=== PATIENT | female | born 1950 | race Caucasian/White ===

== ENCOUNTER 2016-08-28 10:21 | Emergency (ER) | payer MEDICARE, MEDICAID ==
[~2016-08-28] VITALS: Ht 157.5 cm; Wt 79.4 kg
[~2016-08-28 10:21] MED LIST: AML5T PO; AMLO5TAB2; ASP325T PO; ATR20T PO; BACL10TA PO; CEPH500C PO; CLOP75TA PO; CYCL10TA9 PO; DEXL60CA5 PO; GLBR5T; METF500T4; MTF500T PO; NAPR-243 PO; NAPR-689; ORPH100T PO; PNT40TEC PO; PRD20T PO; PROAIR INHALER IH; QNPR20T PO; QUIN20TA27; SRTR100T PO; TRAM50TA2; TRM50T PO; ZOLOFT
--- OUTSIDE RECORDS SUMMARY | 2016-08-28 10:27 | XMS REPORT | Continuity of Care Document ---
Author Author [facility] Organization [facility] Address Unknown Phone Unavailable Care Team Providers Care Fuel Cell Technician Name Role Phone THOMAS CLAIRE DO PCP Insurance Providers Payer Name Policy Number Subscriber Name Relationship [employer]ps Medicare [id number] Pao Albright S 18 Self / Same As Patient Sherrie [employer] [id number] Pao Albright S 18 Self / Same As Patient Advance Directives Directive Response Recorded Date/Time Advance Directives No 08/27/14 4:21pm Organ Donor No 08/27/14 4:21pm Resuscitation Status Full Code 08/27/14 4:21pm Problems No known problems or medical conditions. Medications Medication Dose Route Sig Days/Qty Instructions Order Date Discontinued Date Status Pantoprazole Sodium 40 Mg PO DAILY 02/02/08 Active Atorvastatin Calcium 40 Mg PO DAILY 02/02/08 Active Glyburide 02/02/08 07/04/12 Discontinued Metformin HCl (Glucophage) 500 Mg PO TWICE A DAY 1 TAB BY MOUTH BEFORE BREAKFAST AND 1 TAB EVERY EVENING 02/02/08 Active Aspirin 325 Mg PO DAILY 02/02/08 11/08/13 Discontinued Amlodipine Besylate 5 Mg PO DAILY 02/02/08 08/27/14 Discontinued Quinapril HCl 20 Mg PO DAILY 02/02/08 Active Zoloft 02/02/08 07/12/12 Discontinued Dexlansoprazole 60 Mg PO 07/12/12 07/12/12 Discontinued Sertraline HCl 100 Mg PO DAILY 07/12/12 11/08/13 Discontinued Cephalexin Monohydrate (Keflex) 500 Mg PO THREE TIMES A DAY 07/12/12 11/08/13 Discontinued [Proair Inhaler] 1 Puff IH THREE TIMES A DAY PRN 07/12/12 Active Clopidogrel Bisulfate 1 Each PO DAILY 07/15/12 Active Naproxen 1 Each PO THREE TIMES A DAY PRN PAIN 20 Qty 11/08/13 Active Orphenadrine Citrate 100 Mg PO TWICE A DAY 10 Qty FOR MUSCLE SPASMS 11/0808/27/14 Discontinued Tramadol HCl 50 Mg PO Q4-6HR PRN PAIN 20 Qty 11/08/13 Active Amlodipine Besylate (Norvasc 5 Mg) 30 Qty 08/27/14 Active Quinapril Hcl 30 Qty 08/27/14 Active Naproxen 60 Qty 08/27/14 Active Tramadol Hcl 60 Qty 08/27/14 Active Metformin Hcl 60 Qty 08/27/14 Active Prednisone 40 Mg PO DAILY 10 Qty 08/27/14 Active Cyclobenzaprine HCl (Flexeril) 1 Each PO EVERY 8HRS PRN SPASMS 10 Qty 15 08/27/14 Discontinued Baclofen (Lioresal) 1 Each PO TID PRN PRN SPASMS 10 Qty 08/27/14 Active Social History Social History Problem Response Recorded Date/Time Alcohol Use Denies Use 08/27/2014 4:21pm Recreational Drug Use No 08/27/2014 4:21pm Recent Foreign Travel No 08/27/2014 4:19pm Smoking Status Current Everyday Smoker 08/27/2014 4:21pm Query Response Start Date Stop Date Smoking Status Current Everyday Smoker Hospital Discharge Instructions No hospital discharge instructions. Plan of Care No plan of care. Functional Status No functional status results. Allergies, Adverse Reactions, Alerts Allergen Type Severity Reaction Status Last Updated Penicillins ([id number]) Allergy Unknown Active 02/02/08 morphine Allergy Mild Active 11/08/13 Immunizations No immunization records. Vital Signs Acute Vital Signs Vital Response Date/Time Temperature (Fahrenheit) 97.4 degrees F (97.6 - 99.5) Temperature (Calculated Celsius) 36.05807 degrees C (36.4 - 37.5) Temperature Source Temporal Pulse Rate (adult) 82 bpm (60 - 90) Respiratory Rate 18 bpm (12 - 24) O2 Sat by Pulse Oximetry 95 % (88 - 100) Blood Pressure 149/83 mm Hg Pain Pain Intensity 10 Height (Feet) 5 feet Height (Calculated Centimeters) 152.955131 cm Weight (Pounds) 237 pounds Weight (Calculated Grams) 243621.393 gm Weight (Calculated Kilograms) 107.532364 kilograms Height 5 ft 0 in Weight 237 lb Body Mass Index 46.3 kg/m^2 Results No known relevant diagnostic tests, laboratory data and/or discharge summary. Procedures No known history of procedures. Encounters Encounter Location Date/Time Departed Emergency Room Via [facility] 08/27/14 4:11pm Recent Diagnosis
--- NOTE | 2016-08-28 11:09 | ED Fall/Injury ---
General Chief Complaint: Trauma-Non Activation Stated Complaint: FALL/HEAD INJURY Nursing Triage Note: PT ARRIVED PER EMS, PT FELL OUT OF BED AT [place] THIS AM, PT DENIES LOC, PT STATES ONLY HURTS WHERE BUMP ON HEAD IS, DENIES NEW NECK PAIN, STATES ALWAYS HAS NECK PAIN. Source: patient, EMS, group home records History of Present Illness Time seen by provider: 10:22 Initial Comments PT ARRIVES VIA EMS FROM [facility] PT STATES SHE WAS LAYING IN BED AND LEANED OVER AND WAS REACHING DOWN TO GET HER SHOES AND FELL OFF THE BED, AND HIT HER HEAD ON A TRASH CAN--OCCURRED JUST PRIOR TO ARRIVAL NO LOSS OF CONSCIOUSNESS NO DIZZINESS NO VISION CHANGES NO NAUSEA/VOMITING NO PARESTHESIAS OR MOTOR DEFICITS NO CHANGES IN CHRONIC NECK PAIN NO OTHER INJURIES PT STATES SHE HAD NOT HAD ANY OF HER MORNING MEDICATIONS UNTIL IMMEDIATELY PRIOR TO ARRIVAL Location Injury Occurred: [place] PCP: DR. CLAIRE Allergies and Home Medications Allergies Coded Allergies: morphine (Unverified Allergy, Mild, 11/08/13) "ACTS WEIRD" Penicillins (Unverified Allergy, Unknown, 02/02/08) Home Medications 1 PUFF IH TID PRN PRN (Reported) Amlodipine Besylate 5 Mg Tablet #30 (Reported) Atorvastatin 20 Mg Tablet 40 MG PO DAILY (Reported) Baclofen 10 Mg Tablet #10 1 EACH PO TID PRN PRN PRN SPASMS Prescribed by: CHLOE HAYS on 08/27/14 1756 Clopidogrel Bisulfate 75 Mg Tablet 1 EACH PO DAILY (Reported) Metformin Hcl 500 Mg Tablet 500 MG PO BID (Reported) 1 TAB BY MOUTH BEFORE BREAKFAST AND 1 TAB EVERY EVENING DO NOT START UNTIL 12 -13-12 Metformin Hcl 500 Mg Tablet #60 (Reported) Naproxen 500 Mg Tablet #20 1 EACH PO TID PRN PRN PAIN FOR PAIN Prescribed by: VEDA ZABALA on 11/08/13 1612 Naproxen 500 Mg Tablet #60 (Reported) Pantoprazole Sodium 40 Mg Tablet.dr 40 MG PO DAILY (Reported) Prednisone 20 Mg Tab #10 40 MG PO DAILY Prescribed by: CHLOE HAYS on 08/27/14 1724 Quinapril Hcl 20 Mg Tablet 20 MG PO DAILY (Reported) Quinapril Hcl 20 Mg Tablet #30 (Reported) Tramadol Hcl 50 Mg Tab #20 50 MG PO Q4-6HR PRN PRN PAIN FOR PAIN Prescribed by: VEDA ZABALA on 11/08/13 1612 Tramadol Hcl 50 Mg Tab #60 (Reported) Constitutional: no symptoms reported other (HEMATOMA TO LEFT FOREHEAD) Eyes: No Symptoms Reported Ears, Nose, Mouth, Throat: no symptoms reported Respiratory: no symptoms reported Cardiovascular: no symptoms reported Gastrointestinal: no symptoms reported Genitourinary: no symptoms reported Musculoskeletal: no symptoms reported Skin: no symptoms reported Psychiatric/Neurological: No Symptoms Reported Past Eazhooq-Kwrtle-Xxirwg Hx Patient Social History Alcohol Use: Past History (NONE X 10-15 YEARS, PER PT ON 08/28/16) Recreational Drug Use: No Smoking Status: Current Everyday Smoker (2 1/2 PPD, NOW 1/2 PPD) Type Used: Cigarettes Recent Foreign Travel: No Contact w/Someone Who Travel: No Recent Infectious Disease Expo: No Recent Hopitalizations: No (HAILEY-UNSURE WHAT FOR AND WHEN) Physical Abuse Screen: No Sexual Abuse: No Seasonal Allergies Seasonal Allergies: No Surgeries HX Surgeries: Yes (CATARACTS) Surgeries: Section, Eye Surgery, Gallbladder Respiratory Hx Respiratory Disorders: Yes Respiratory Disorders: COPD Cardiovascular Hx Cardiac Disorders: Yes Cardiac Disorders: Coronary Artery Disease, High Cholesterol, Hypertension Neurological Hx Neurological Disorders: Yes Neurological Disorders: Stroke Reproductive System Hx Reproductive Disorders: No Genitourinary Hx Genitourinary Disorders: Yes (INCONTINENT) Gastrointestinal Hx Gastrointestinal Disorders: Yes Gastrointestinal Disorders: Chronic Constipation Musculoskeletal Hx Musculoskeletal Disorders: Yes (CHRONIC NECK AND BACK PAIN ; UNSTEADY GAIT AND GENERALIZED WEAKNESS) Musculoskeletal Disorders: Arthritis, Chronic Back Pain Endocrine Hx Endocrine Disorders: Yes Endocrine Disorders: Diabetes, Non-Insulin dep Cancer Hx Cancer: No Psychosocial Hx Psychiatric Problems: Yes Behavioral Health Disorders: Depression Integumentary HX Skin/Integumentary Disorder: No Blood Transfusions Hx Blood Disorders: No Physical Exam Vital Signs Vital Sign - Last 12Hours 08/28/16 10:21 Temp 97.9 Pulse 68 Resp 18 B/P 198/79 Pulse Ox 99 Capillary Refill : Less Than 3 Seconds General Appearance: WD/WN no apparent distress HEENT: PERRL/EOMI TMs normal other (LARGE HEMATOMA TO LEFT FOREHEAD. POOR DENTITON WITH MULTIPLE MISSING TEETH) Neck: tender lateral tender midline other (PT STATES IS CHRONIC AND NO DIFFERENT THAN NORMAL) Cardiovascular: regular rate, rhythm no murmur Respiratory: normal breath sounds no respiratory distress no accessory muscle use Gastrointestinal: non tender soft Back: no CVA tenderness no vertebral tenderness Extremities: normal range of motion non-tender normal inspection no pedal edema no calf tenderness Neurologic/Psychiatric: consultant internship II-XII nml as tested no motor/sensory deficits alert normal mood/affect oriented x 3 Skin: normal color warm/dry [place] Coma Score Best Eye Response: (4) Open Spontaneously Best Verbal Response: (5) Oriented Best Motor Response: (6) Obeys Commands [place] Total: 15 Progress/Results/Core Measures Results/Orders My Orders Orders-VEDA ZABALA DO Ct Head/Cervical Spine Wo (08/28/16 10:31) Vital Signs/I&O Vital Sign - Last 12Hours 08/28/16 10:21 Temp 97.9 Pulse 68 Resp 18 B/P 198/79 Pulse Ox 99 Blood Pressure Mean: 118 Progress Note : Progress Note PT REFUSES TO HAVE BP TAKEN AGAIN Diagnostic Imaging Comments CT HEAD/CERVICAL SPINE--LEFT FRONTAL SCALP HEMATOMA, OTHERWISE NO ACUTE PROCESS , CHRONIC CHANGES--PER RADIOLOGIST REPORT @ 1113 Reviewed: Reviewed by Me Departure Impression Impression: Primary Impression: S/P FALL Additional Impressions: HEAD CONTUSION WITH HEMATOMA EXACERABATION OF CHRONIC NECK PAIN Disposition: 03 XFER SNF Condition: Stable Departure-Patient Inst. Referrals: THOMAS CLAIRE DO (PCP/Family) Primary Care Physician Patient Instructions: HEMATOMA, Minor Head Injury (DC), Preventing Falls in the Older Adult Add. Discharge Instructions: ICE TO AREA AT 20 MINUTE INTERVALS TYLENOL NEEDED FOR PAIN CONTINUE YOUR REGULAR MEDICATIONS PRESCRIBED FOLLOW UP WITH YOUR DR NEEDED All discharge instructions reviewed with patient and/or family. Voiced understanding. VEDA ZABALA DO Aug 28, 2016 11:09
--- NOTE | 2016-08-28 11:10 | Diagnostic Imaging Report ---
PROCEDURE: CT head and CT cervical spine without contrast. TECHNIQUE: Multiple contiguous axial images were obtained through the brain and cervical spine without the use of intravenous contrast. Sagittal and coronal reformations through the cervical spine were then performed. INDICATION: Fall. Head injury. COMPARISON: CT head without contrast 07/14/2012. Cervical spine radiographs 12/20/2013. FINDINGS: CT HEAD: Generalized cerebral and cerebellar parenchymal volume loss has progressed since the prior exam. Chronic infarct in the left ajay. 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 No intracranial hemorrhage, mass effect, hydrocephalus or extra-axial fluid collections. Intracranial vascular calcifications. Left frontal scalp hematoma. Osseous structures are intact. Mild mucosal thickening in the maxillary sinuses. CT CERVICAL SPINE: Minimal anterolisthesis of C4 on C5 and C5 on C6 is similar to the prior radiographs. Vertebral body heights are maintained. No fractures. Moderate degenerative endplate changes and facet arthropathy. These result in no high-grade neural impingement on this noncontrast exam. Arterial calcifications including the carotid bifurcations. IMPRESSION: 1. Left frontal scalp hematoma. Osseous structures are intact. 2. Interval progression of generalized parenchymal volume loss and leukoaraiosis. No acute intracranial CT findings. 3. No acute cervical spine CT findings. Dictated by: Dictated on workstation # [id number]
[2016-08-28 12:35] VITALS: BP 0/0
== END 2016-08-28 12:30 ==
LOC: EDUNIT# 10:21 → ER 10:23
DX: S00.83XA Contusion of other part of head, initial encounter (principal); M54.2 Cervicalgia; G89.29 Other chronic pain; I10 Essential (primary) hypertension; E11.9 Type 2 diabetes mellitus without complications; J44.9 Chronic obstructive pulmonary disease, unspecified; F17.210 Nicotine dependence, cigarettes, uncomplicated; Z79.02 Long term (current) use of antithrombotics/antiplatelets; Z79.84 Long term (current) use of oral hypoglycemic drugs; W06.XXXA Fall from bed, initial encounter; Y92.122 Bedroom in nursing home as the place of occurrence of the external cause; Y99.8 Other external cause status
CPT/HCPCS: 70450; 72125

== ENCOUNTER 2016-09-22 09:19 | Emergency (ER) | payer MEDICARE, MEDICAID ==
[~2016-09-22] VITALS: Ht 157.5 cm; Wt 79.7 kg
--- OUTSIDE RECORDS SUMMARY | 2016-09-22 09:24 | XMS REPORT | Continuity of Care Document ---
Author Author [facility] Organization [facility] Address Unknown Phone Unavailable Care Team Providers Care Chamber Worker Name Role Phone THOMAS CLAIRE DO PCP Insurance Providers Payer Name Policy Number Subscriber Name Relationship [employer]ps [employer] [id number] Pao Albright S 18 Self / Same As Patient Sherrie [employer] [id number] Pao Albright S 18 Self / Same [...] Type Severity Reaction Status Last Updated Penicillins ([id number]) Allergy Unknown Active 02/02/08 morphine Allergy Mild Active 11/08/13 Immunizations No immunization records. Vital Signs Acute Vital Signs Vital Response Date/Time Temperature (Fahrenheit) 97.4 degrees F (97.6 - 99.5) Temperature (Calculated Celsius) 36.15516 degrees C (36.4 - 37.5) Temperature Source Temporal Pulse Rate (adult) 82 bpm (60 - 90) Respiratory Rate 18 bpm (12 - 24) O2 Sat by Pulse Oximetry 95 % (88 - 100) Blood Pressure 149/83 mm Hg Pain Pain Intensity 10 Height (Feet) 5 feet Height (Calculated Centimeters) 152.361166 cm Weight (Pounds) 237 pounds Weight (Calculated Grams) 321369.393 gm Weight (Calculated Kilograms) 107.233023 kilograms Height 5 ft 0 in Weight 237 lb Body Mass Index 46.3 kg/m^2 Results No known relevant diagnostic tests, laboratory data and/or discharge summary. Procedures No known history of procedures. Encounters Encounter Location Date/Time Departed Emergency Room Via [facility] 08/27/14 4:11pm Recent Diagnosis
--- NOTE | 2016-09-22 09:35 | ED Upper Extremity ---
General Chief Complaint: Trauma-Non Activation Stated Complaint: FALL Source: patient, EMS Exam Limitations: no limitations History of Present Illness Time seen by provider: 09:27 Initial Comments Patient presents after having a fall approximately 5:30 this morning after she got up she said she was a little disoriented and fell from standing at the floor with her head and left arm on the elbow. She still having pain in her left arm and is splinting it against her side. She is left-handed. She has a goose egg on her left side of her parietal skull that is not very tender. She notes that her shoulder and elbow are 11 out of 10 pain but does not desire any pain medicine at this time. She states she has pain in her lower back on top of her chronic pain that is new since her fall this morning. She lives in residential and had help getting up and was examined by the nurse there appears no immediate concern for open/overt fracture/dislocation but her doctor asked that she be brought to the ER for x-ray. No loss of consciousness. Allergies and Home Medications Allergies Coded Allergies: morphine (Unverified Allergy, Mild, 11/08/13) "ACTS WEIRD" Penicillins (Unverified Allergy, Unknown, 02/02/08) Home Medications 1 PUFF IH TID PRN PRN (Reported) Amlodipine Besylate 5 Mg Tablet #30 (Reported) Atorvastatin 20 Mg Tablet 40 MG PO DAILY (Reported) Baclofen 10 Mg Tablet #10 1 EACH PO TID PRN PRN PRN SPASMS Prescribed by: CHLOE HAYS on 08/27/14 1756 Clopidogrel Bisulfate 75 Mg Tablet 1 EACH PO DAILY (Reported) Metformin Hcl 500 Mg Tablet 500 MG PO BID (Reported) 1 TAB BY MOUTH BEFORE BREAKFAST AND 1 TAB EVERY EVENING DO NOT START UNTIL 12 -13-12 Metformin Hcl 500 Mg Tablet #60 (Reported) Naproxen 500 Mg Tablet #20 1 EACH PO TID PRN PRN PAIN FOR PAIN Prescribed by: VEDA ZABALA on 11/08/13 1612 Naproxen 500 Mg Tablet #60 (Reported) Pantoprazole Sodium 40 Mg Tablet.dr 40 MG PO DAILY (Reported) Prednisone 20 Mg Tab #10 40 MG PO DAILY Prescribed by: CHLOE HAYS on 08/27/14 1724 Quinapril Hcl 20 Mg Tablet 20 MG PO DAILY (Reported) Quinapril Hcl 20 Mg Tablet #30 (Reported) Tramadol Hcl 50 Mg Tab #20 50 MG PO Q4-6HR PRN PRN PAIN FOR PAIN Prescribed by: VEDA ZABALA on 11/08/13 1612 Tramadol Hcl 50 Mg Tab #60 (Reported) Constitutional: No chills, No fever, No malaise EENTM: No ear pain, No eye pain Respiratory: No cough, No wheezing Cardiovascular: No chest pain, No edema, No syncope Gastrointestinal: No abdominal pain, constipationNo diarrhea Genitourinary: No dysuria, No frequency Musculoskeletal: back painNo joint pain, No joint swelling Skin: No pruritus, No rash Psychiatric/Neurological: Denies Numbness, Denies Paresthesia Past Bvldpus-Axwyvr-Ciskud Hx Patient Social History Alcohol Use: Denies Use Recreational Drug Use: No Smoking Status: Current Everyday Smoker Type Used: Cigarettes Recent Hopitalizations: No (HAILEY-UNSURE WHAT FOR AND WHEN) Seasonal Allergies Seasonal Allergies: No Surgeries HX Surgeries: Yes (CATARACTS) Surgeries: Section, Eye Surgery, Gallbladder Respiratory Hx Respiratory Disorders: Yes Respiratory Disorders: COPD Cardiovascular Hx Cardiac Disorders: Yes Cardiac Disorders: Coronary Artery Disease, High Cholesterol, Hypertension Neurological Hx Neurological Disorders: Yes Neurological Disorders: Stroke Reproductive System Hx Reproductive Disorders: No Genitourinary Hx Genitourinary Disorders: Yes (INCONTINENT) Gastrointestinal Hx Gastrointestinal Disorders: Yes Gastrointestinal Disorders: Chronic Constipation Musculoskeletal Hx Musculoskeletal Disorders: Yes (CHRONIC NECK AND BACK PAIN ; UNSTEADY GAIT AND GENERALIZED WEAKNESS) Musculoskeletal Disorders: Arthritis, Chronic Back Pain Endocrine Hx Endocrine Disorders: Yes Endocrine Disorders: Diabetes, Non-Insulin dep Cancer Hx Cancer: No Psychosocial Hx Psychiatric Problems: Yes Behavioral Health Disorders: Depression Integumentary HX Skin/Integumentary Disorder: No Blood Transfusions Hx Blood Disorders: No Physical Exam Vital Signs Vital Sign - Last 12Hours 09/22/16 09:31 Temp 98.4 Pulse 69 Resp 18 B/P 195/92 Pulse Ox 97 O2 Delivery Room Air Capillary Refill : General Appearance: WD/WN no apparent distress HEENT: PERRL/EOMI normal ENT inspection TMs normal pharynx normal other ( hematoma left parietal.) Neck: non-tender full range of motion supple normal inspection Cardiovascular: normal peripheral pulses regular rate, rhythm no edema Respiratory: chest non-tender lungs clear normal breath sounds Gastrointestinal: normal bowel sounds non tender soft Back: normal inspection no CVA tenderness vertebral tenderness (lateral to the lumbar 1 through 3 region) Shoulder: normal inspectionNo asymmetry, No deformity, pain (tender to palpation superior to the glenohumeral joint) Elbow/Forearm: normal inspection, non-tender (over lateral or medial epicondyles but there is some tenderness along the distal third of the humerus.) Wrist: Yes normal inspection, Yes non-tender, Yes no evidence of injury Hand: normal inspection, non-tender Neurologic/Tendon: normal sensation normal motor functions normal tendon functions responds to pain Neurologic/Psychiatric: bulk filler II-XII nml as tested alert normal mood/affect oriented x 3 Skin: normal color warm/dry Lymphatic: no adenopathy Progress/Results/Core Measures Results/Orders Lab Results Laboratory Tests Test 09/22/16 10:20 Range/Units Urine Bacteria TRACE /HPF Urine Bilirubin NEGATIVE NEGATIVE Urine Casts NONE /LPF Urine Clarity CLEAR Urine Color YELLOW Urine Crystals NONE /LPF Urine Culture Indicated NO Urine Glucose (UA) NEGATIVE NEGATIVE Urine Ketones NEGATIVE NEGATIVE Urine Leukocyte Esterase NEGATIVE NEGATIVE Urine Mucus NEGATIVE /LPF Urine Nitrite NEGATIVE NEGATIVE Urine Protein 2+ H NEGATIVE Urine RBC NONE /HPF Urine RBC (Auto) NEGATIVE NEGATIVE Urine Renal Epithelial Cells NONE /HPF Urine Specific [place] 1.010 L 1.016-1.022 Urine Squamous Epithelial Cells 0-2 /HPF Urine Urobilinogen NORMAL NORMAL MG/DL Urine WBC NONE /HPF Urine pH 6.5 5-9 My Orders Orders-NORIS MARTIN Ua Culture If Indicated (09/22/16 09:35) Shoulder, Left, 3 Views (09/22/16 09:35) Elbow, Left, 3 Views (09/22/16 09:35) Lumbar Spine - 2-3 Views (09/22/16 09:35) Acetaminophen Tablet (Tylenol Tablet) (09/22/16 12:39) Vital Signs/I&O Vital Sign - Last 12Hours 09/22/16 09/22/16 09:31 12:48 Temp 98.4 98.4 Pulse 69 74 Resp 18 16 B/P 195/92 Pulse Ox 97 97 O2 Delivery Room Air Progress Note : Time: 09:50 Progress Note We'll obtain a urinalysis looking for signs of a urinary tract infection given no other overt reason for her fall other understanding early in the morning. X- ray shoulder and left elbow as well as lumbar spine 3 views. Tenderness on the spine is paraspinous so may be more amenable to muscle relaxers if no osseous fracture seen. Patient declining any pain meds at this time. States she does not believe in pain meds. Declines Muscle relaxant. UA Neg Diagnostic Imaging Diagonstic Imaging: Xray Plain Films/CT/US/NM/MRI: elbow, other (shoulder and L-spine) Comments No acute osseous fractures noted. No tumor, mass lesion or signs of infection. Ljpf-gw-jiazdlyb degenerative joint disease noted. NAME: [facility]ES [facility] REC#: [id number] PT STATUS: REG ER : 1950 PHYSICIAN: NORIS MARTIN MD ADMIT DATE: 09/22/16/ER Signed Date of Exam: 09/22/16 ELBOW, LEFT, 3 VIEWS INDICATION: Fall. FINDINGS: 3 views show no fractures or dislocations of the elbow. Mild degenerative changes are present. No joint effusion. IMPRESSION: No acute abnormalities. Dictated by: Dictated on workstation # [id number] Dict: 09/22/16 1005 Trans: 09/22/16 1009 [facility] [id number] Interpreted by: JOSE HELMS MD Electronically signed by:JOSE HELMS MD 09/22/16 1012 NAME: ALCIDES [facility] REC#: [id number] PT STATUS: REG ER : 1950 PHYSICIAN: NORIS MARTIN MD ADMIT DATE: 09/22/16/ER Signed Date of Exam: 09/22/16 LUMBAR SPINE - 2-3 VIEWS INDICATION: Fall. Low back pain. FINDINGS: 3 views show good alignment of the vertebral bodies. Body height is well maintained with no compression fracture. Facets are in good alignment. No evidence of pars defect. Mild degenerative disc disease noted throughout. Aorta is calcified without evidence of aneurysm. IMPRESSION: Degenerative disc and facet disease with no acute abnormalities demonstrated. Dictated by: Dictated on workstation # [id number] Dict: 09/22/16 1005 Trans: 09/22/16 1009 [facility] [id number] Interpreted by: JOSE HELMS MD Electronically signed by:JOSE HELMS MD 09/22/16 1012 [facility] [place] [place] NAME: ALCIDES [facility] REC#: [id number] PT STATUS: REG ER : 1950 PHYSICIAN: NORIS MARTIN MD ADMIT DATE: 09/22/16/ER Draft Date of Exam:09/22/16 SHOULDER, LEFT, 3 VIEWS INDICATION: Shoulder pain. Fall. FINDINGS: 3 views show normal articulation of the humeral head with the glenoid. There is calcification noted on the AP view which likely represents some osteophyte formation along the posterior glenoid. No definite fractures are seen. AC joint is in good alignment. IMPRESSION: Small calcification noted overlying the inferior aspect of the humeral head on the AP view only is felt most likely to represent an osteophyte off of the glenoid. Clinical correlation for focal pain. If additional imaging is indicated CT scan of the shoulder would help differentiate. Dictated on workstation # [id number] Dict: 09/22/16 1006 Trans: 09/22/16 1010 [facility] [id number] Interpreted by: JOSE HELMS MD Electronically signed by: Reviewed: Reviewed by Me Departure Impression Impression: Primary Impression: Fall from standing Qualified Code: W19.XXXA - Unspecified fall, initial encounter Disposition: 01 HOME, SELF-CARE Condition: Stable Departure-Patient Inst. Referrals: THOMAS CLAIRE DO (PCP/Family) Primary Care Physician Patient Instructions: Preventing Falls in the Older Adult Add. Discharge Instructions: You have had a fall. The x-rays did not show any signs of an acute fracture. You did have some mild degenerative changes that are consistent with osteoarthritis or chronic arthritis. Your urine was checked for infection and found to be clean. Use the call lights and staff to help you as needed. All discharge instructions reviewed with patient and/or family. Voiced understanding. Copy Copies To 1: THOMAS CLAIRE TITUS J Sep 22, 2016 09:34
--- NOTE | 2016-09-22 10:06 | Diagnostic Imaging Report ---
INDICATION: Fall. FINDINGS: 3 views show no fractures or dislocations of the elbow. Mild degenerative changes are present. No joint effusion. IMPRESSION: No acute abnormalities. Dictated by: Dictated on workstation # [id number]
--- NOTE | 2016-09-22 10:09 | Diagnostic Imaging Report ---
INDICATION: Fall. Low back pain. FINDINGS: 3 views show good alignment of the vertebral bodies. Body height is well maintained with no compression fracture. Facets are in good alignment. No evidence of pars defect. Mild degenerative disc disease noted throughout. Aorta is calcified without evidence of aneurysm. IMPRESSION: Degenerative disc and facet disease with no acute abnormalities demonstrated. Dictated by: Dictated on workstation # [id number]
--- NOTE | 2016-09-22 10:10 | Diagnostic Imaging Report ---
INDICATION: Shoulder pain. Fall. FINDINGS: 3 views show normal articulation of the humeral head with the glenoid. There is calcification noted on the AP view which likely represents some osteophyte formation along the posterior glenoid. No definite fractures are seen. AC joint is in good alignment. IMPRESSION: Small calcification noted overlying the inferior aspect of the humeral head on the AP view only is felt most likely to represent an osteophyte off of the glenoid. Clinical correlation for focal pain. If additional imaging is indicated CT scan of the shoulder would help differentiate. Dictated by: Dictated on workstation # [id number]
[2016-09-22 11:01] LABS: BILIRUBIN,URINE NEGATIVE (NEGATIVE); KETONES,URINE NEGATIVE (NEGATIVE); LEUKOCYTE ESTERASE ,URINE NEGATIVE (NEGATIVE); NITRITE,URINE NEGATIVE (NEGATIVE); PH,URINE 6.5 (5-9); PROTEIN,URINE 2+ (NEGATIVE); UROBILINOGEN,URINE NORMAL (NORMAL)
[2016-09-22 11:05] LABS: SQUAMOUS EPITHELIAL CELL,UR 0-2 /HPF
[2016-09-22] MEDS ORDERED: ACETAMINOPHEN 500 MG TAB (TYLENOL) PO STA (12:39)
[2016-09-22 12:48] VITALS: BP 155/84
== END 2016-09-22 12:48 | disposition home or self-care (01) ==
LOC: EDUNIT# 09:19 → ER 09:20
DX: S00.03XA Contusion of scalp, initial encounter (principal); M54.5 Low back pain; M51.36 Other intervertebral disc degeneration, lumbar region; J44.9 Chronic obstructive pulmonary disease, unspecified; F17.210 Nicotine dependence, cigarettes, uncomplicated; Z79.899 Other long term (current) drug therapy; Z79.02 Long term (current) use of antithrombotics/antiplatelets; Z79.84 Long term (current) use of oral hypoglycemic drugs; W01.0XXA Fall on same level from slipping, tripping and stumbling without subsequent striking against object, initial encounter; Y92.122 Bedroom in nursing home as the place of occurrence of the external cause; Y99.8 Other external cause status
CPT/HCPCS: 72100; 73030; 73080; 81000; 99283

== ENCOUNTER → 2016-12-08 | Outpatient (CLI) | payer MEDICARE, MEDICAID ==
[2016-12-08 23:50] LABS: BILIRUBIN,URINE NEGATIVE (NEGATIVE); KETONES,URINE NEGATIVE (NEGATIVE); LEUKOCYTE ESTERASE ,URINE NEGATIVE (NEGATIVE); NITRITE,URINE NEGATIVE (NEGATIVE); PH,URINE 5 (5-9); PROTEIN,URINE 3+ (NEGATIVE); UROBILINOGEN,URINE NORMAL (NORMAL)
[2016-12-09 00:02] LABS: WBC,URINE RARE /HPF
== END ==
LOC: LABNPT 23:44
PROVIDERS: ATTEND Family Medicine
DX: R39.9 Unspecified symptoms and signs involving the genitourinary system (principal)
CPT/HCPCS: 81000; 87088

== ENCOUNTER → 2016-12-21 | Outpatient (CLI) | payer MEDICARE, MEDICAID | LOC: LABNPT 15:07 | PROVIDERS: ATTEND Family Medicine | DX: K59.00 Constipation, unspecified (principal); E78.4 Other hyperlipidemia; E56.9 Vitamin deficiency, unspecified | CPT/HCPCS: 82274 ==

== ENCOUNTER → 2017-01-08 | Outpatient (CLI) | payer MEDICARE, MEDICAID ==
[~2017-01-08] MED LIST changes: +ACET-2422 PO; +ALBU18HF2 IH; +AMLO5TAB2 PO; +ATOR40TA70 PO; +CLON0.5T3 PO; +CLOP75TA28 PO; +DOCU100C37 PO; +ESCI10TA55 PO; +FAMO20TA5 PO; +GUAI100L13 PO; +MAGN400O7 PO; +MAGN400T6 PO; +MENT56CR TP; +METF500T4 PO; +METR500T21 PO; +ONDA4TAB10 PO; +POTA10TA6 PO; +QUIN20TA27 PO; +TRAM50TA2 PO
== END ==
LOC: LAB 20:15
PROVIDERS: ATTEND Family Medicine
DX: R19.7 Diarrhea, unspecified (principal); R19.5 Other fecal abnormalities
CPT/HCPCS: 82274; 87045; 87046; 87493

== ENCOUNTER 2017-02-06 13:19 | Inpatient (IN) | payer MEDICARE, MEDICAID ==
[~2017-02-06] VITALS: Ht 154.9 cm; Wt 81.6 kg
--- NOTE | 2017-02-06 15:11 | Diagnostic Imaging Report ---
EXAMINATION: Portable upright radiograph of the chest. INDICATION: Fall. FINDINGS: The lungs are clear. The heart size is at the upper limits of normal. No effusion or pneumothorax. The mediastinum and aries appear unremarkable. IMPRESSION: Prominent cardiac size. No focal infiltrate. Dictated by: Dictated on workstation # [id number]
--- NOTE | 2017-02-06 15:16 | Diagnostic Imaging Report ---
PROCEDURE: CT head and CT cervical spine without contrast. TECHNIQUE: Multiple contiguous axial images were obtained through the brain and cervical spine without the use of intravenous contrast. Sagittal and coronal reformations through the cervical spine were then performed. INDICATION: Fall. Bruising. FINDINGS: CT head: There is no intracranial hemorrhage, edema, or mass effect. The brain parenchyma demonstrates prominent periventricular and deep white matter hypodensities compatible with chronic microvascular ischemic changes. There is a 9 mm hypodense lesion within the brainstem suggestive of an old lacunar infarct. Small other lacunar infarcts in the right basal ganglia is also seen. No hydrocephalus. The calvarium, the visualized portions of the paranasal sinuses and orbits appear grossly unremarkable. CT cervical spine: There is a straightening of the cervical spine curvature. The alignment of the posterior spinal line is satisfactory. There is no compression fracture. There is mild disc height loss at C4-C5 and C5-C6 levels. The alignment at the facet joints is satisfactory. There is a fusion of the right facet joint at the C3-C4 level. No widening of the predental space. Satisfactory alignment of the atlantooccipital joints and the lateral masses of C1 and C2 is seen. Prominent anterior osteophytes at the mid and lower cervical spine levels is noted. There is a severe foraminal stenosis on the right side at the C3-C4 level. No fracture seen. IMPRESSION: CT head: Findings compatible with chronic ischemic changes. No intracranial hemorrhage. CT cervical spine: Degenerative changes. No fracture seen. Dictated by: Dictated on workstation # [id number]
--- NOTE | 2017-02-06 15:25 | ED Fall/Injury ---
General Chief Complaint: Trauma-Non Activation Stated Complaint: FALL/LEFT SHOULDER PAIN Nursing Triage Note: TO ED PER EMS YAZMIN MARGARET REMY ROSETTA WHO REPORT SHE WAS BENDING OVER IN HER W/C TO PICK SOMETHING UP AND FELL OUT NO LOC. ABRASION WITH HENMATOMA TO R SIDE OF FOREHEAD AND PAIN IN L SHOULDER. Source: patient, EMS Exam Limitations: no limitations History of Present Illness Time seen by provider: 14:00 Initial Comments This 66-year-old woman presents to the emergency room from the long-term after falling when she was bending over in her wheelchair to pick something up. There was no loss of consciousness. She has an abrasion on her right forehead. On my assessment she denies any significant pain. She has increasing somnolence. She is presently on Plavix. Patient did not complain of any shoulder pain on my interview. Fingerstick blood sugar was 335. Occurred: just prior to arrival Severity: mild Injuries/Pain Location: head Loss of Consciousness: no loss of consciousness Allergies and Home Medications Allergies Coded Allergies: morphine (Unverified Allergy, Mild, 11/08/13) "ACTS WEIRD" Penicillins (Unverified Allergy, Unknown, 02/02/08) Home Medications Acetaminophen 650 Mg Tablet.er, 650 MG PO Q4H PRN for PAIN-MILD, (Reported) NOT TO EXCEED 4 GRAMS PER DAY Albuterol Sulfate 18 Gm Hfa.aer.ad, 2 PUFF IH Q8H PRN for SHORTNESS OF BREATH, ( Reported) Amlodipine Besylate 5 Mg Tablet, 5 MG PO DAILY, (Reported) Atorvastatin Calcium 40 Mg Tablet, 40 MG PO HS, (Reported) Clonazepam 0.5 Mg Tablet, 0.5 MG PO Q12H PRN for ANXIETY, (Reported) Clopidogrel Bisulfate 75 Mg Tablet, 75 MG PO DAILY, (Reported) Docusate Sodium 100 Mg Capsule, 100 MG PO Q12H PRN for CONSTIPATION-1ST LINE, ( Reported) Escitalopram Oxalate 10 Mg Tablet, 10 MG PO DAILY, (Reported) Famotidine 20 Mg Tablet, 20 MG PO BID, (Reported) Guaifenesin 100 Mg/5 Ml Liquid, 10 ML PO Q4H PRN for COUGH, (Reported) Magnesium Hydroxide 400 Mg/5 Ml Oral.susp, 30 ML PO Q12H PRN for CONSTIPATION- 7TH LINE, (Reported) Magnesium Oxide 400 Mg Tablet, 400 MG PO BIDPC, #30 Prescribed by: ELPIDIO PEOPLES on 12/29/16 1326 Menthol/Camphor 56 Gm Cream..g., TP Q6H PRN for JOINT PAIN, (Reported) Metformin HCl 500 Mg Tablet, 500 MG PO BID, (Reported) Metronidazole 500 Mg Tablet, 500 MG PO TID for 12 Days, #36 Prescribed by: ELPIDIO PEOPLES on 12/29/16 1326 Ondansetron HCl 4 Mg Tablet, 4 MG PO Q6H PRN for NAUSEA/VOMITING-1ST LINE, ( Reported) Potassium Chloride 10 Meq Tablet.er, 10 MEQ PO BID WITH MEALS, #30 Prescribed by: ELPIDIO PEOPLES on 12/29/16 1326 Quinapril HCl 20 Mg Tablet, 20 MG PO DAILY, (Reported) Tramadol HCl 50 Mg Tablet, 50 MG PO Q12H PRN for PAIN-MODERATE, (Reported) Constitutional: see HPI Eyes: No Symptoms Reported Ears, Nose, Mouth, Throat: no symptoms reported Respiratory: no symptoms reported Cardiovascular: no symptoms reported Gastrointestinal: no symptoms reported Genitourinary: no symptoms reported Musculoskeletal: see HPI Skin: see HPI Psychiatric/Neurological: See HPI Past Yqircoe-Ityayl-Dgjeuh Hx Patient Social History Alcohol Use: Denies Use Recreational Drug Use: No Smoking Status: Current Everyday Smoker Type Used: Cigarettes 2nd Hand Smoke Exposure: No Recent Foreign Travel: No Contact w/Someone Who Travel: No Recent Infectious Disease Expo: No Recent Hopitalizations: No Immunizations Up To Date Tetanus Booster (TDap): Unknown Seasonal Allergies Seasonal Allergies: No Surgeries HX Surgeries: Yes (CATARACTS) Surgeries: Section, Eye Surgery, Gallbladder Respiratory Hx Respiratory Disorders: Yes Respiratory Disorders: COPD Cardiovascular Hx Cardiac Disorders: Yes Cardiac Disorders: Coronary Artery Disease, High Cholesterol, Hypertension Neurological Hx Neurological Disorders: Yes Neurological Disorders: Stroke Reproductive System Hx Reproductive Disorders: No Genitourinary Hx Genitourinary Disorders: Yes (INCONTINENT) Gastrointestinal Hx Gastrointestinal Disorders: Yes Gastrointestinal Disorders: Chronic Constipation Musculoskeletal Hx Musculoskeletal Disorders: Yes (CHRONIC NECK AND BACK PAIN ; UNSTEADY GAIT AND GENERALIZED WEAKNESS) Musculoskeletal Disorders: Arthritis, Chronic Back Pain Endocrine Hx Endocrine Disorders: Yes Endocrine Disorders: Diabetes, Non-Insulin dep Cancer Hx Cancer: No Psychosocial Hx Psychiatric Problems: Yes Behavioral Health Disorders: Depression Integumentary HX Skin/Integumentary Disorder: No Blood Transfusions Hx Blood Disorders: No Adverse Reaction to a Blood Tr: No Family Medical History Significant Family History: No Pertinent Family Hx Physical Exam Vital Signs Vital Sign - Last 12Hours 02/06/17 13:19 Temp 97.6 Pulse 104 Resp 18 B/P (MAP) 119/83 Pulse Ox 98 O2 Delivery Room Air Capillary Refill : Less Than 3 Seconds General Appearance: WD/WN, no apparent distress, other (hypersomnolent) HEENT: PERRL/EOMI, TMs normal, pharynx normal, other (contusion/ecchymosis on the right forehead) Neck: non-tender, supple, normal inspection Cardiovascular: regular rate, rhythm, no edema, no murmur Respiratory: lungs clear, normal breath sounds, no respiratory distress, no accessory muscle use Gastrointestinal: normal bowel sounds, non tender, soft Extremities: non-tender, normal inspection, no pedal edema Neurologic/Psychiatric: mussel farmer II-XII nml as tested, no motor/sensory deficits, oriented x 3, other (patient is very somnolent but arousable. She is actually alert and oriented 3 when pressed for answers.) [place] Coma Score Best Eye Response: (3) Open to Voice Best Verbal Response: (5) Oriented Best Motor Response: (6) Obeys Commands [place] Total: 14 Progress/Results/Core Measures Results/Orders Lab Results Laboratory Tests Test 02/06/17 14:32 02/06/17 15:45 Range/Units Glucometer 335 H 70-110 MG/DL White Blood Count 13.0 H 4.3-11.0 10^3/uL Red Blood Count 3.77 L 4.35-5.85 10^6/uL Hemoglobin 10.1 L 11.5-16.0 G/DL Hematocrit 31 L 35-52 % Mean Corpuscular Volume 81 80-99 FL Mean Corpuscular Hemoglobin 27 25-34 PG Mean Corpuscular Hemoglobin Concent 33 32-36 G/DL Red Cell Distribution Width 18.4 H 10.0-14.5 % Platelet Count 407 H 130-400 10^3/uL Mean Platelet Volume 11.1 H 7.4-10.4 FL Neutrophils (%) (Auto) 81 H 42-75 % Lymphocytes (%) (Auto) 13 12-44 % Monocytes (%) (Auto) 6 0-12 % Eosinophils (%) (Auto) 1 0-10 % Basophils (%) (Auto) 0 0-10 % Neutrophils # (Auto) 10.5 H 1.8-7.8 X 10^3 Lymphocytes # (Auto) 1.7 1.0-4.0 X 10^3 Monocytes # (Auto) 0.8 0.0-1.0 X 10^3 Eosinophils # (Auto) 0.1 0.0-0.3 10^3/uL Basophils # (Auto) 0.0 0.0-0.1 10^3/uL Prothrombin Time 17.1 H 12.2-14.7 SEC INR Comment 1.4 0.8-1.4 Activated Partial Thromboplast Time 26 24-35 SEC Sodium Level 135 135-145 MMOL/L Potassium Level 4.1 3.6-5.0 MMOL/L Chloride Level 110 H 98-107 MMOL/L Carbon Dioxide Level 18 L 21-32 MMOL/L Anion Gap 7 5-14 MMOL/L Blood Urea Nitrogen 28 H 7-18 MG/DL Creatinine 2.37 H 0.60-1.30 MG/DL Estimat Glomerular Filtration Rate 20 BUN/Creatinine Ratio 12 Glucose Level 317 H 70-105 MG/DL Calcium Level 8.3 L 8.5-10.1 MG/DL Magnesium Level 2.0 1.8-2.4 MG/DL Total Bilirubin 0.2 0.1-1.0 MG/DL Aspartate Amino Transf (AST/SGOT) 16 5-34 U/L Alanine Aminotransferase (ALT/SGPT) 8 0-55 U/L Alkaline Phosphatase 58 40-136 U/L Total Protein 6.3 L 6.4-8.2 GM/DL Albumin 3.0 L 3.2-4.5 GM/DL Serum Alcohol < 10 <10 MG/DL My Orders Orders - DOMINIC NEWTON MD Alcohol (02/06/17 14:27) Cbc With Automated Diff (02/06/17 14:27) Comprehensive Metabolic Panel (02/06/17 14:27) Drug Screen Stat (Urine) (02/06/17 14:27) Magnesium (02/06/17 14:27) Protime With Inr (02/06/17 14:27) Partial Thromboplastin Time (02/06/17 14:27) Ua Culture If Indicated (02/06/17 14:27) Saline Lock/Iv-Start (02/06/17 14:27) Monitor-Rhythm Ecg Trace Only (02/06/17 14:27) Chest 1 View, Ap/Pa Only (02/06/17 14:27) Ct Head/Cervical Spine Wo (02/06/17 14:27) Saline Lock/Iv-Start (02/06/17 14:27) Accucheck Stat ONCE (02/06/17 14:27) Ns Iv 1000 Ml (Sodium Chloride 0.9%) (02/06/17 16:36) Vital Signs/I&O Vital Sign - Last 12Hours 02/06/17 13:19 Temp 97.6 Pulse 104 Resp 18 B/P (MAP) 119/83 Pulse Ox 98 O2 Delivery Room Air Blood Pressure Mean: 95 Point of Care Testing Finger Stick Blood Glucose: 335 Progress Note : Progress Note CT of the head and C-spine was obtained along with lab work. No acute injuries were identified. Patient was somnolent around the time of physician assessment but gradually improved. She was found to be in acute renal failure. A liter of IV fluids was administered by EMS. A second liter was administered in the ER. Was reviewed with Dr. Claire. He states patient has struggled with renal function in the outpatient setting. He agrees with admission for IV hydration. He reports patient does not keep up well with oral hydration and has actually received IV hydration in the outpatient setting recently. Diagnostic Imaging Diagonstic Imaging: CT Plain Films/CT/US/NM/MRI: c-spine, head Comments CT head and C-spine viewed by me and report reviewed. See report below: NAME: ALCIDES ALBRIGHT [facility] REC#: [id number] PT STATUS: REG ER : 1950 PHYSICIAN: DOMINIC NEWTON MD ADMIT DATE: 02/06/17/ER Draft Date of Exam:02/06/17 CT HEAD/CERVICAL SPINE WO PROCEDURE: CT head and CT cervical spine without contrast. TECHNIQUE: Multiple contiguous axial images were obtained through the brain and cervical spine without the use of intravenous contrast. Sagittal and coronal reformations through the cervical spine were then performed. INDICATION: Fall. Bruising. FINDINGS: CT head: There is no intracranial hemorrhage, edema, or mass effect. The brain parenchyma demonstrates prominent periventricular and deep white matter hypodensities compatible with chronic microvascular ischemic changes. There is a 9 mm hypodense lesion within the brainstem suggestive of an old lacunar infarct. Small other lacunar infarcts in the right basal ganglia is also seen. No hydrocephalus. The calvarium, the visualized portions of the paranasal sinuses and orbits appear grossly unremarkable. CT cervical spine: There is a straightening of the cervical spine curvature. The alignment of the posterior spinal line is satisfactory. There is no compression fracture. There is mild disc height loss at C4-C5 and C5-C6 levels. The alignment at the facet joints is satisfactory. There is a fusion of the right facet joint at the C3-C4 level. No widening of the predental space. Satisfactory alignment of the atlantooccipital joints and the lateral masses of C1 and C2 is seen. Prominent anterior osteophytes at the mid and lower cervical spine levels is noted. There is a severe foraminal stenosis on the right side at the C3-C4 level. No fracture seen. IMPRESSION: CT head: Findings compatible with chronic ischemic changes. No intracranial hemorrhage. CT cervical spine: Degenerative changes. No fracture seen. Dictated on workstation # [id number] Dict: 02/06/17 1504 Trans: 02/06/17 1516 [facility] [id number] Interpreted by: CHRISTIAN SPICER MD Diagonstic Imaging: Xray Plain Films/CT/US/NM/MRI: chest Comments Chest x-ray viewed by me and report reviewed. See report below: NAME: ALCIDES ALBRIGHT [facility] REC#: [id number] PT STATUS: REG ER : 1950 PHYSICIAN: DOMINIC NEWTON MD ADMIT DATE: 02/06/17/ER Signed Date of Exam:02/06/17 CHEST 1 VIEW, AP/PA ONLY EXAMINATION: Portable upright radiograph of the chest. INDICATION: Fall. FINDINGS: The lungs are clear. The heart size is at the upper limits of normal. No effusion or pneumothorax. The mediastinum and aries appear unremarkable. IMPRESSION: Prominent cardiac size. No focal infiltrate. Dictated by: Dictated on workstation # [id number] Dict: 02/06/17 1459 Trans: 02/06/17 1511 [facility] [id number] Interpreted by: CHRISTIAN SPICER MD Electronically signed by: CHRISTIAN SPICER MD 02/06/17 1511 Departure Communication Time/Spoke to Admitting Phy: 16:[address] Claire Impression Impression: Primary Impression: Acute renal failure Qualified Codes: N17.9 - Acute kidney failure, unspecified Additional Impressions: Fall on same level Qualified Codes: W18.30XA - Fall on same level, unspecified, initial encounter Altered mental status Qualified Codes: R41.82 - Altered mental status, unspecified Disposition: ADMITTED INPATIENT Condition: Improved Decision to Admit Reason: Admit from ER (General) Decision to Admit/Date: Feb 06, 2017 Time/Decision to Admit Time: 16:50 Departure-Patient Inst. Referrals: THOMAS CLAIRE DO (PCP/Family) Primary Care Physician DOMINIC NEWTON MD Feb 06, 2017 15:25
[2017-02-06 15:53] LABS: BASOPHILS % (AUTO) 0 % (0-10); EOSINOPHILS # (AUTO) 0.1 10^3/uL (0.0-0.3); EOSINOPHILS % (AUTO) 1 % (0-10); LYMPHOCYTES # (AUTO) 1.7 X 10^3 (1.0-4.0); LYMPHOCYTES % (AUTO) 13 % (12-44); MEAN CORPUSCULAR HEMOGLOBIN 27 PG (25-34); MEAN CORPUSCULAR HGB CONC 33 G/DL (32-36); MEAN CORPUSCULAR VOLUME 81 FL (80-99); MEAN PLATELET VOLUME 11.1 FL (7.4-10.4); MONOCYTES # (AUTO) 0.8 X 10^3 (0.0-1.0); MONOCYTES % (AUTO) 6 % (0-12); NEUTROPHILS # (AUTO) 10.5 X 10^3 (1.8-7.8); NEUTROPHILS % (AUTO) 81 % (42-75); PLATELET COUNT 407 10^3/uL (130-400); RED BLOOD COUNT 3.77 10^6/uL (4.35-5.85); RED CELL DISTRIBUTION WIDTH 18.4 % (10.0-14.5)
[2017-02-06 16:04] LABS: INR 1.4 (0.8-1.4); PROTHROMBIN TIME PATIENT 17.1 SEC (12.2-14.7)
[2017-02-06 16:20] LABS: ALANINE AMINOTRANSFERASE 8 U/L (0-55); ALCOHOL < 10 MG/DL (<10); ANION GAP 7 MMOL/L (5-14); ASPARTATE AMINO TRANSFERASE 16 U/L (5-34); BILIRUBIN,TOTAL 0.2 MG/DL (0.1-1.0); BLOOD UREA NITROGEN 28 MG/DL (7-18); BUN/CREATININE RATIO 12; CALCIUM 8.3 MG/DL (8.5-10.1); CARBON DIOXIDE 18 MMOL/L (21-32); CHLORIDE 110 MMOL/L (98-107); CREATININE SERUM 2.37 MG/DL (0.60-1.30); GFR ESTIMATED 20; GLUCOSE 317 MG/DL (70-105); POTASSIUM 4.1 MMOL/L (3.6-5.0); SODIUM 135 MMOL/L (135-145); TOTAL PROTEIN 6.3 GM/DL (6.4-8.2)
[2017-02-06] MEDS ORDERED: NS IV 1000 ML 1,000 ML IV ONE (16:36)
[2017-02-06 17:41] LABS: BILIRUBIN,URINE NEGATIVE (NEGATIVE); KETONES,URINE NEGATIVE (NEGATIVE); LEUKOCYTE ESTERASE ,URINE 3+ (NEGATIVE); NITRITE,URINE POSITIVE (NEGATIVE); PH,URINE 5 (5-9); PROTEIN,URINE 2+ (NEGATIVE); UROBILINOGEN,URINE NORMAL (NORMAL)
[2017-02-06 18:00] LABS: WBC,URINE 25-50 /HPF
[2017-02-06] MEDS ORDERED: MEROPENEM 500 MG in NS (IVPB) 100 ML IV ONE (18:15)
[2017-02-06 18:32] VITALS: BP 136/69
[2017-02-06] MEDS ORDERED: LEVOFLOXACIN 750 MG/D5W 150 ML PRE-MIX IV SCH (18:45)
[2017-02-06] MEDS ORDERED: ONDANSETRON 4 MG/2 ML (SDV) Z0FRAN IV PRN (18:45)
[2017-02-06] MEDS ORDERED: CATHETER FLUSH 10 ML SYR IV PRN (18:45)
[2017-02-06] MEDS: NS IV 1000 ML 1,000 ML IV SCH (19:56)
[2017-02-06] MEDS: inSUlin (REGULAR) HUMAN 1 UNIT/0.01 ML (CHARGE PER UNIT) SC SCH (20:01)
[2017-02-06 23:25] VITALS: BP 137/73
[2017-02-07 03:30] VITALS: BP 114/58
[2017-02-07] MEDS: NS IV 1000 ML 1,000 ML IV SCH ×3 (04:57→18:35)
[2017-02-07] MEDS: MEROPENEM 500 MG/NS 100 ML IVPB IV SCH ×4 (05:06→18:35)
[2017-02-07] MEDS: inSUlin (REGULAR) HUMAN 1 UNIT/0.01 ML (CHARGE PER UNIT) SC SCH ×4 (06:11→21:14)
[2017-02-07 08:00] VITALS: BP 121/61
--- NOTE | 2017-02-07 08:06 | History & Physicial ---
History of Present Illness History of Present Illness Reason for visit/HPI patient resident of a skilled nursing. Patient in wheelchair and bent over and fell on her head. Patient brought out to the emergency room. Patient has acute renal failure and infection. Patient has history of diabetes, CAD, and COPD Date of Admission Feb 06, 2017 at 17:30 Time Seen by Provider: 07:50 I consulted on this patient on 02/07/17 08:00 Attending Physician Eugenio Claire DO Admitting Physician Eugenio Claire DO Consult Allergies and Home Medications Allergies Coded Allergies: morphine (Unverified Allergy, Mild, 11/08/13) "ACTS WEIRD" Penicillins (Unverified Allergy, Unknown, 02/02/08) Home Medications Acetaminophen 650 Mg Tablet.er, 650 MG PO Q4H PRN for PAIN-MILD, (Reported) NOT TO EXCEED 4 GRAMS PER DAY Albuterol Sulfate 18 Gm Hfa.aer.ad, 2 PUFF IH Q8H PRN for SHORTNESS OF BREATH, ( Reported) Amlodipine Besylate 5 Mg Tablet, 5 MG PO DAILY, (Reported) Atorvastatin Calcium 40 Mg Tablet, 40 MG PO HS, (Reported) Clonazepam 0.5 Mg Tablet, 0.5 MG PO Q12H PRN for ANXIETY, (Reported) Clopidogrel Bisulfate 75 Mg Tablet, 75 MG PO DAILY, (Reported) Docusate Sodium 100 Mg Capsule, 100 MG PO Q12H PRN for CONSTIPATION-1ST LINE, ( Reported) Escitalopram Oxalate 10 Mg Tablet, 10 MG PO DAILY, (Reported) Famotidine 20 Mg Tablet, 20 MG PO BID, (Reported) Guaifenesin 100 Mg/5 Ml Liquid, 10 ML PO Q4H PRN for COUGH, (Reported) Magnesium Hydroxide 400 Mg/5 Ml Oral.susp, 30 ML PO Q12H PRN for CONSTIPATION- 7TH LINE, (Reported) Magnesium Oxide 400 Mg Tablet, 400 MG PO BIDPC, #30 Prescribed by: ELPIDIO PEOPLES on 12/29/16 1326 Menthol/Camphor 56 Gm Cream..g., TP Q6H PRN for JOINT PAIN, (Reported) Metformin HCl 500 Mg Tablet, 500 MG PO BID, (Reported) Metronidazole 500 Mg Tablet, 500 MG PO TID for 12 Days, #36 Prescribed by: ELPIDIO PEOPLES on 12/29/16 1326 Ondansetron HCl 4 Mg Tablet, 4 MG PO Q6H PRN for NAUSEA/VOMITING-1ST LINE, ( Reported) Potassium Chloride 10 Meq Tablet.er, 10 MEQ PO BID WITH MEALS, #30 Prescribed by: ELPIDIO PEOPLES on 12/29/16 1326 Quinapril HCl 20 Mg Tablet, 20 MG PO DAILY, (Reported) Tramadol HCl 50 Mg Tablet, 50 MG PO Q12H PRN for PAIN-MODERATE, (Reported) Past [id number]-Vitebq-Eklndd Hx Patient Social History Marrital Status: Alcohol Use: Denies Use Recreational Drug Use: No Smoking Status: Current Everyday Smoker Type Used: Cigarettes 2nd Hand Smoke Exposure: No Physical Abuse Screen: No Sexual Abuse: No Recent Foreign Travel: No Contact w/other who traveled: No Recent Hopitalizations: No Recent Infectious Disease Expo: No Immunizations Up To Date Tetanus Booster (TDap): Unknown Seasonal Allergies Seasonal Allergies: No Surgeries HX Surgeries: Yes (CATARACTS) Surgeries: Section, Eye Surgery, Gallbladder Respiratory Hx Respiratory Disorders: Yes Respiratory Disorders: COPD Cardiovascular Hx Cardiovascular Disorders: Yes Cardiac Disorders: Coronary Artery Disease, High Cholesterol, Hypertension Neurological Hx Neurological Disorders: Yes Neurological Disorders: Stroke Reproductive System Hx Reproductive Disorders: No 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 Genitourinary Hx Genitourinary Disorders: Yes (INCONTINENT) Gastrointestinal Hx Gastrointestinal Disorders: Yes Gastrointestinal Disorders: Chronic Constipation Musculoskeletal Hx Musculoskeletal Disorders: Yes (CHRONIC NECK AND BACK PAIN ; UNSTEADY GAIT AND GENERALIZED WEAKNESS) Musculoskeletal Disorders: Arthritis, Chronic Back Pain Endocrine Hx Endocrine Disorders: Yes Endocrine Disorders: Diabetes, Non-Insulin dep Cancer Hx Cancer: No Psychosocial Hx Psychiatric Problems: Yes Behavioral Health Disorders: Depression Integumentary HX Skin/Integumentary Disorder: No Blood Transfusions Hx Blood Disorders: No Adverse Reaction to a Blood Tr: No Family Medical History Significant Family History: No Pertinent Family Hx Constitutional: weakness EENTM: no symptoms reported Respiratory: no symptoms reported Cardiovascular: no symptoms reported Gastrointestinal: no symptoms reported Genitourinary: no symptoms reported Physical Exam Vital Signs Vital Sign - Last 12Hours 02/06/17 13:19 Temp 97.6 Pulse 104 Resp 18 B/P (MAP) 119/83 Pulse Ox 98 O2 Delivery Room Air Capillary Refill : Less Than 3 Seconds General Appearance: No Apparent Distress, WD/WN Eyes: Bilateral Eye Normal Inspection HEENT: Normal ENT Inspection Neck: Full Range of Motion, Normal Inspection Respiratory: Chest Non Tender, No Accessory Muscle Use, No Respiratory Distress , Decreased Breath Sounds Cardiovascular: Regular Rate, Rhythm, No Murmur Gastrointestinal: Non Tender, Soft Assessment/Plan Assessment and Plan acute renal failure. You infection. COPD. Diabetes. Coronary artery disease. CAD Problems: Clinical Quality Measures DVT/VTE Risk/Contraindication: Risk Factor Score Per Nursin RFS Level Per Nursing on Admit: 4+=Very High EUGENIO CLAIRE DO Feb 07, 2017 08:06
[2017-02-07 08:21] LABS: BASOPHILS % (AUTO) 0 % (0-10); EOSINOPHILS # (AUTO) 0.1 10^3/uL (0.0-0.3); EOSINOPHILS % (AUTO) 1 % (0-10); LYMPHOCYTES # (AUTO) 1.6 X 10^3 (1.0-4.0); LYMPHOCYTES % (AUTO) 16 % (12-44); MEAN CORPUSCULAR HEMOGLOBIN 26 PG (25-34); MEAN CORPUSCULAR HGB CONC 32 G/DL (32-36); MEAN CORPUSCULAR VOLUME 82 FL (80-99); MEAN PLATELET VOLUME 10.6 FL (7.4-10.4); MONOCYTES # (AUTO) 0.6 X 10^3 (0.0-1.0); MONOCYTES % (AUTO) 6 % (0-12); NEUTROPHILS # (AUTO) 7.9 X 10^3 (1.8-7.8); NEUTROPHILS % (AUTO) 77 % (42-75); PLATELET COUNT 422 10^3/uL (130-400); RED BLOOD COUNT 3.55 10^6/uL (4.35-5.85); RED CELL DISTRIBUTION WIDTH 18.6 % (10.0-14.5); WHITE BLOOD COUNT 10.2 10^3/uL (4.3-11.0)
[2017-02-07 08:46] LABS: ALBUMIN 3.2 GM/DL (3.2-4.5); BILIRUBIN,TOTAL 0.4 MG/DL (0.1-1.0); CALCIUM 8.7 MG/DL (8.5-10.1); CREATININE SERUM 2.19 MG/DL (0.60-1.30); TOTAL PROTEIN 6.4 GM/DL (6.4-8.2)
[2017-02-07] MEDS ORDERED: ENOXAPARIN 30 MG/0.3 ML (LOVENOX) SYR SC SCH (09:00)
[2017-02-07] MEDS: TERBINAFINE 1% CREAM 1 OZ (LamISIL) TUBE TP SCH ×3 (09:36→21:13)
[2017-02-07] MEDS: MENTHOL/ZINC OXIDE (CALMOSEPTINE) 113 GM TUBE TOP SCH ×2 (09:36→21:13)
[2017-02-07] MEDS ORDERED: FERR-65 PO (09:39)
[2017-02-07] MEDS ORDERED: MAGN400T6 PO (09:39)
[2017-02-07] MEDS ORDERED: NYST1000 PO (09:39)
[2017-02-07] MEDS ORDERED: SCOP1PAT TD (09:39)
[2017-02-07] MEDS ORDERED: ONDN4T PO (09:39)
[2017-02-07] MEDS ORDERED: POTA10TA10 PO (09:39)
[2017-02-07] MEDS ORDERED: DIPH25CA79 PO (09:39)
[2017-02-07] MEDS ORDERED: NSTR15C TP (09:39)
[2017-02-07] MEDS ORDERED: MULT-24 PO (09:39)
[2017-02-07] MEDS ORDERED: CLON0.5T25 PO (09:39)
[2017-02-07] MEDS ORDERED: PROT946L PO (09:39)
[2017-02-07] MEDS ORDERED: [UNRECOGNIZED DRUG - CODE] PO (09:46)
[2017-02-07] MEDS ORDERED: BARRIER CREAM TOP (09:46)
--- NOTE | 2017-02-07 09:49 | Physical Therapy Evaluation ---
PT Evaluation-General Medical Diagnosis Admission Date Feb 06, 2017 at 17:30 Medical Diagnosis: acute renal failure, fall Onset Date: Feb 06, 2017 Therapy Diagnosis Therapy Diagnosis: impaired mobility, strength, endurance Height/Weight Height (Feet): 5 Height (Inches): 1.00 Weight (Pounds): 180 Weight (Ounces): 0.0 Precautions Precautions/Isolations: Fall Prevention, Standard Precautions Referral Physician: Eugenio Dennison DO Reason for Referral: Evaluation/Treatment Medical History Pertinent Medical History: Arthritis, CAD, COPD, CVA, DM, HTN, Smoking Additional Medical History high cholesterol, incontinent, chronic constipation, chronic neck and back pain , surg (cataracts, , gallbladder) Current History went to ER after a fall, [facility] of wheelchair in the prison, has acute renal failure and infection Reviewed History: Yes Social History Home: Retirement Patient states she has not been walking for quite a while but is unsure of how long Prior/Core FIM Prior Level of Function Functional [place] Measure 0=Not Assessed/NA 4=Minimal Assistance 1=Total Assistance 5=Supervision or Setup 2=Maximal Assistance 6=Modified [place] 3=Moderate Assistance 7=Complete [place] unknown, patient is a poor historian PT Evaluation-Current Subjective Patient in recliner pre tx, agrees to PT, has no complaints other than her low back pain which is chronic Pt/Family Goals "to walk again" Objective Patient Orientation: Person, Confused Attachments: IV ROM/Strength ROM Lower Extremities WNL Strenght Lower Extremities right lower extremity (hip flexion 2/5, knee flexion 2/5, knee extension 2/5, dorsiflexion 0/5), left lower extremity (hip flexion 3-/5, knee flexion 3-/5, knee extension 2/5, dorsiflexion 0/5) Neuromuscular (Tone, Coordination, Reflexes) poor general muscle tone Sensory Vision: Functional Hearing: Functional Sensation Right Lower Extremit: Impaired Sensation Left Lower Extremity: Intact Sensation Lower Extremities Patient has numbness in her right foot Transfers Functional [place] Measure 0=Not Assessed/NA 4=Minimal Assistance 1=Total Assistance 5=Supervision or Setup 2=Maximal Assistance 6=Modified [place] 3=Moderate Assistance 7=Complete [place] Transfers (B, C, W/C) (FIM): 2 Sit to/from Stand: 2 cues for positioning and safety Balance Sitting Static: Good Sitting Dynamic: Good Standing Static: Poor Standing Dynamic: Poor Treatment Patient stood twice from a chair with max assist, once using a walker and the second time with a therapist in front so nursing could take care of her bottom. Patient stated she would like to continue to stay in the recliner due to her back pain. Assessment/Needs Patient has impaired mobility, strength, endurance. Confused, high fall risk. Rehab Potential: Poor PT [facility] Goals [facility] Goals PT [facility] Goals Time Frame: Feb 14, 2017 Transfers (B,C,W/C) (FIM): 3 Gait (FIM): 1 Distance: 10' Gait Level of Assist: 4 Gait Assistive Device: FWW PT Plan Problem List Problem List: Activity Tolerance, Functional Strength, Safety, Balance, Gait, Transfer, Bed Mobility, ROM Treatment/Plan Treatment Plan: Continue Plan of Care Treatment Plan: Bed Mobility, Education, Functional Activity [place], Functional Strength, Gait, Safety, Therapeutic Exercise, Transfers Treatment Duration: Feb 14, 2017 Frequency: Daily Estimated Hrs Per Day: .5 hour per day Patient and/or Family Agrees t: Yes hours per day PRN Safety Risks/Education Patient Education: Transfer Techniques, Correct Positioning, Safety Issues Teaching Recipient: Patient Teaching Methods: Demonstration, Discussion Response to Teaching: Reinforcement Needed Discharge Recommendations Plan Patient will perform bed mobility and transfer training, balance and endurance training, functional strengthening, gait training, and education, to improve functional mobility and independence at home. Therapy D/C Recommendations: Jail (TCU/[facility]) Time/GCodes Time In: 915 Time Out: 945 Total Billed Treatment Time: 30 Total Billed Treatment 1 visit ESTHER 15' YUNIOR 15' TAZ MARTINEZ PT Feb 07, 2017 09:49
[2017-02-07] MEDS ORDERED: MILK OF MAGNESIA 400 MG/5 ML 30 ML UDC PO PRN (11:45)
[2017-02-07] MEDS ORDERED: guaiFENesin SYRUP 100 MG/5 ML 10 ML (ROBITUSSIN SF) PO PRN (11:45)
[2017-02-07] MEDS ORDERED: DOCUSATE SODIUM 100 MG (COLACE) CAP PO PRN (11:45)
[2017-02-07] MEDS ORDERED: SCOPOLAMINE 1.5 MG (TRANSDERM-SCOP) PATCH TD PRN (11:45)
[2017-02-07 12:00] VITALS: BP 115/63
[2017-02-07] MEDS ORDERED: clonazePAM 0.5 MG (KlonoPIN) TAB PO PRN (12:15)
[2017-02-07] MEDS ORDERED: RT-ALBUTEROL SULF 2.5 MG/3 ML PRE-MIX VIAL IH PRN (12:15)
[2017-02-07] MEDS ORDERED: diphenhydrAMINE 25 MG TAB (BENADRYL) PO PRN (12:15)
[2017-02-07] MEDS ORDERED: ONDANSETRON 4 MG (ZOFRAN) ORAL DISSOLVE TAB PO PRN (12:30)
[2017-02-07 16:45] VITALS: BP 124/57
[2017-02-07 19:35] VITALS: BP 136/71
[2017-02-07] MEDS: MAGNESIUM OXIDE (MAG-OX)400 MG TAB PO SCH (21:13)
[2017-02-07] MEDS: KCL 10 MEQ TAB (MICRO K) PO SCH (21:13)
[2017-02-07] MEDS: NYSTATIN ORAL SUSP 5 ML UDC PO SCH (21:13)
[2017-02-07] MEDS: ATORVASTATIN 40 MG (LIPITOR) TABLET PO SCH (21:13)
[2017-02-07 23:50] VITALS: BP 123/74
[2017-02-08] MEDS: NS IV 1000 ML 1,000 ML IV SCH ×3 (03:52→18:01)
[2017-02-08] MEDS: MULTIVIT W/MINERALS TAB (THERAGRAN M) PO SCH (05:17)
[2017-02-08] MEDS: MEROPENEM 500 MG/NS 100 ML IVPB IV SCH ×6 (05:17→18:02)
[2017-02-08] MEDS: inSUlin (REGULAR) HUMAN 1 UNIT/0.01 ML (CHARGE PER UNIT) SC SCH ×4 (05:21→21:29)
[2017-02-08 06:43] LABS: BASOPHILS % (AUTO) 0 % (0-10); EOSINOPHILS # (AUTO) 0.1 10^3/uL (0.0-0.3); EOSINOPHILS % (AUTO) 1 % (0-10); LYMPHOCYTES # (AUTO) 2.1 X 10^3 (1.0-4.0); LYMPHOCYTES % (AUTO) 16 % (12-44); MEAN CORPUSCULAR HEMOGLOBIN 27 PG (25-34); MEAN CORPUSCULAR HGB CONC 32 G/DL (32-36); MEAN CORPUSCULAR VOLUME 83 FL (80-99); MEAN PLATELET VOLUME 10.9 FL (7.4-10.4); MONOCYTES % (AUTO) 7 % (0-12); NEUTROPHILS # (AUTO) 10.3 X 10^3 (1.8-7.8); NEUTROPHILS % (AUTO) 76 % (42-75); PLATELET COUNT 444 10^3/uL (130-400); RED BLOOD COUNT 3.85 10^6/uL (4.35-5.85); RED CELL DISTRIBUTION WIDTH 19.4 % (10.0-14.5); WHITE BLOOD COUNT 13.5 10^3/uL (4.3-11.0)
[2017-02-08 07:01] LABS: ALBUMIN 3.1 GM/DL (3.2-4.5); BILIRUBIN,TOTAL 0.3 MG/DL (0.1-1.0); CALCIUM 8.6 MG/DL (8.5-10.1); CREATININE SERUM 2.02 MG/DL (0.60-1.30); POTASSIUM 4.2 MMOL/L (3.6-5.0); TOTAL PROTEIN 6.4 GM/DL (6.4-8.2)
[2017-02-08 08:10] VITALS: BP 128/81
[2017-02-08] MEDS: MENTHOL/ZINC OXIDE (CALMOSEPTINE) 113 GM TUBE TOP SCH ×2 (08:21→21:29)
[2017-02-08] MEDS: MAGNESIUM OXIDE (MAG-OX)400 MG TAB PO SCH ×2 (08:22→21:29)
[2017-02-08] MEDS: FERROUS SULF 325 MG (IRON) TAB PO SCH (08:22)
[2017-02-08] MEDS: FAMOTIDINE 20 MG (PEPCID) TABLET PO SCH (08:22)
[2017-02-08] MEDS: KCL 10 MEQ TAB (MICRO K) PO SCH ×2 (08:22→21:29)
[2017-02-08] MEDS: NYSTATIN ORAL SUSP 5 ML UDC PO SCH ×2 (08:22→21:29)
[2017-02-08] MEDS: CLOPIDOGREL 75 MG (PLAVIX) TABLET PO SCH (08:22)
[2017-02-08] MEDS: TERBINAFINE 1% CREAM 1 OZ (LamISIL) TUBE TP SCH ×3 (08:23→21:29)
[2017-02-08] MEDS: amLODIPine 5 MG (NORVASC) TAB PO SCH (08:23)
[2017-02-08] MEDS: ACETAMINOPHEN 500 MG TAB (TYLENOL) PO PRN (08:36)
--- NOTE | 2017-02-08 08:48 | Progress Note (SOAP) ---
Subjective Date Seen by Provider: Feb 08, 2017 Time Seen by Provider: 11:01 Subjective/Events-last exam Fwup fall in alf, UTI, renal insufficiency, DM II, weakness. Reports no headache but is cold. Sitting up in chair and states able to get up well to C. Objective Exam Vital Signs Date Time Temp Pulse Resp B/P (MAP) Pulse Ox O2 Delivery O2 Flow Rate FiO2 02/07/17 23:50 96.0 78 18 123/74 98 Room Air 02/07/17 19:35 97.4 91 20 136/71 97 Room Air 02/07/17 19:13 Room Air 02/07/17 16:45 97.0 99 20 124/57 98 Room Air 02/07/17 12:00 98.1 96 16 115/63 98 Room Air I & O 02/08/17 07:00 Intake Total 3540 ml Balance 3540 ml Capillary Refill : Less Than 3 Seconds General Appearance: No Apparent Distress HEENT: PERRL/EOMI, Other (Bruising to Rt frontal region) Neck: Full Range of Motion, Normal Inspection, Supple Respiratory: Lungs Clear Cardiovascular: Regular Rate, Rhythm, Normal Peripheral Pulses, Gallop/S4 Peripheral Pulses: 2+ Radial Pulses (R), 2+ Radial Pulses (L) Gastrointestinal: non tender, soft Extremity: Non Tender, Swelling (Rt [id number]) Neurologic/Psychiatric: Alert, Oriented x3 Skin: Normal Color, Warm/Dry Results Lab Laboratory Tests 02/07/17 12:01: Glucometer 186H 02/07/17 16:47: Glucometer 209H 02/07/17 20:57: Glucometer 120H 02/08/17 05:21: Glucometer 121H 02/08/17 06:33: White Blood Count 13.5H, Red Blood Count 3.85L, Hemoglobin 10.2L, Hematocrit 32L , Mean Corpuscular Volume 83, Mean Corpuscular Hemoglobin 27, Mean Corpuscular Hemoglobin Concent 32, Red Cell Distribution Width 19.4H, Platelet Count 444H, Mean Platelet Volume 10.9H, Neutrophils (%) (Auto) 76H, Lymphocytes (%) (Auto) 16, Monocytes (%) (Auto) 7, Eosinophils (%) (Auto) 1, Basophils (%) (Auto) 0, Neutrophils # (Auto) 10.3H, Lymphocytes # (Auto) 2.1, Monocytes # (Auto) 1.0, Eosinophils # (Auto) 0.1, Basophils # (Auto) 0.0, Sodium Level 140, Potassium Level 4.2, Chloride Level 116H, Carbon Dioxide Level 11L, Anion Gap 13, Blood Urea Nitrogen 26H, Creatinine 2.02H, Estimat Glomerular Filtration Rate 24, BUN/ Creatinine Ratio 13, Glucose Level 142H, Calcium Level 8.6, Total Bilirubin 0.3 , Aspartate Amino Transf (AST/SGOT) 13, Alanine Aminotransferase (ALT/SGPT) 9, Alkaline Phosphatase 60, Total Protein 6.4, Albumin 3.1L Microbiology 02/06/17 Urine Culture - Final, Complete Escherichia Coli Assessment/Plan Assessment/Plan Assess & Plan/Chief Complaint 1. Acute renal failure- Continue merrem for UTI and decrease IVF to 75cc/hr 2. Urinary tract infection- Continue merrem 3. COPD- RT protocol, continue duo nebs 4. Diabetes- continue sliding scale insulin replacement 5. Coronary artery disease- Continue home medications 6. Hypomagnesium- magnesium replacement Clinical Quality Measures DVT/VTE Risk/Contraindication: Risk Factor Score Per Nursin RFS Level Per Nursing on Admit: 4+=Very High MONE HERNANDEZ DO Feb 08, 2017 08:48
--- NOTE | 2017-02-08 11:40 | Physical Therapy Daily Note ---
PT Daily Note-Current Subjective Pt sitting in recliner upon arrival. Pt refuses PT at first attempt (1005), nursing gave pt nausea med to assist for PT. Pain Numeric Pain Scale: 5-Moderate Pain Location Body Site: Back Pain Description: Ache Comment: Pt reported back & bottom pain especially while sitting in BSC for BM Mental Status Patient Orientation: Person, Place Attachments: IV Transfers Functional [place] Measure 0=Not Assessed/NA 4=Minimal Assistance 1=Total Assistance 5=Supervision or Setup 2=Maximal Assistance 6=Modified [place] 3=Moderate Assistance 7=Complete IndependenceIRFPAI Quality Coding Scale 6 Independent with activity with or without an assistive device 5 Patient requires set up or clean up by helper. Patient completes activity by themselves 4 Supervision or touching assist (CGA). [place] provide cues , steadying assist 3 The helper provides less than half the effort to complete the activity 2 The helper provides more than half the effort to complete the activity 1 Dependent. The helper does all the effort to complete an activity 7 Patient refused to complete or attempt activity 9 The patient did not perform the activity before the current illness or injury 88 Not attempted due to Medical conditions or safety concerns [place] Sit to/from Stand: 4 Weight Bearing Weight Bearing Restriction: Full Weight Bearing Location Restriction: LE Bilateral Gait Training Gait Assistive Device: FWW Pt ambulated to BSC and back to recliner. Treatments Pt stood from recliner to transfer to BSC. Pt starts to urinate and has some BM on pad in recliner. Pt sits on BSC to rest. Dr Corona is present and examines pt. PT assists pt with floor clean up to be able to transfer back to recliner as well as donning/doffing new gown and socks. Pt returns to recliner with feet up and all needs met at end of tx. Assessment Current Status: Poor Progress Pt is very agitated and doesn't want to participate in PT to beginning with. Due to UTI, pt lacks control of urination. Pt c/o hurting while sitting on BSC but doesn't want to use toilet b/c can't walk or use bed mckenzie b/c bed is uncomfortable. PT Lending Advisor Goals [facility] Goals PT [facility] Goals Time Frame: Feb 14, 2017 Transfers (B,C,W/C) (FIM): 3 Gait (FIM): 1 Distance: 10' Gait Level of Assist: 4 Gait Assistive Device: FWW PT Plan Problem List Problem List: Activity Tolerance, Functional Strength, Safety, Balance, Gait, Transfer, Bed Mobility Treatment/Plan Treatment Plan: Continue Plan of Care Treatment Plan: Bed Mobility, Education, Functional Activity [place], Functional Strength, Gait, Safety, Therapeutic Exercise, Transfers Treatment Duration: Feb 14, 2017 Frequency: Daily Estimated Hrs Per Day: .5 hour per day Patient and/or Family Agrees t: Yes Safety Risks/Education Patient Education: Transfer Techniques, Correct Positioning, Safety Issues Teaching Recipient: Patient Teaching Methods: Discussion Response to Teaching: Verbalize Understanding Time/GCodes Time In: 1045 Time Out: 1125 Total Billed Treatment Time: 40 Total Billed Treatment visit, FA x2 (40m) SHABNAM HECK CAMERA PERSON Feb 08, 2017 11:40
[2017-02-08 15:40] VITALS: BP 114/58
[2017-02-08] MEDS: ATORVASTATIN 40 MG (LIPITOR) TABLET PO SCH (21:29)
[2017-02-09] VITALS: BP 130/58
[2017-02-09] MEDS: inSUlin (REGULAR) HUMAN 1 UNIT/0.01 ML (CHARGE PER UNIT) SC SCH ×4 (05:34→20:17)
[2017-02-09] MEDS: MEROPENEM 500 MG/NS 100 ML IVPB IV SCH ×6 (05:34→23:16)
[2017-02-09 06:46] LABS: BASOPHILS % (AUTO) 0 % (0-10); EOSINOPHILS # (AUTO) 0.1 10^3/uL (0.0-0.3); EOSINOPHILS % (AUTO) 1 % (0-10); LYMPHOCYTES # (AUTO) 1.6 X 10^3 (1.0-4.0); LYMPHOCYTES % (AUTO) 16 % (12-44); MEAN CORPUSCULAR HEMOGLOBIN 26 PG (25-34); MEAN CORPUSCULAR HGB CONC 31 G/DL (32-36); MEAN CORPUSCULAR VOLUME 84 FL (80-99); MEAN PLATELET VOLUME 11.1 FL (7.4-10.4); MONOCYTES # (AUTO) 0.6 X 10^3 (0.0-1.0); MONOCYTES % (AUTO) 6 % (0-12); NEUTROPHILS # (AUTO) 7.6 X 10^3 (1.8-7.8); NEUTROPHILS % (AUTO) 77 % (42-75); PLATELET COUNT 415 10^3/uL (130-400); RED BLOOD COUNT 3.49 10^6/uL (4.35-5.85); RED CELL DISTRIBUTION WIDTH 19.6 % (10.0-14.5); WHITE BLOOD COUNT 9.9 10^3/uL (4.3-11.0)
[2017-02-09 07:05] LABS: CALCIUM 8.6 MG/DL (8.5-10.1); CREATININE SERUM 1.56 MG/DL (0.60-1.30); MAGNESIUM 1.6 MG/DL (1.8-2.4); POTASSIUM 4.4 MMOL/L (3.6-5.0)
[2017-02-09] MEDS: MULTIVIT W/MINERALS TAB (THERAGRAN M) PO SCH (08:24)
[2017-02-09 08:42] VITALS: BP 148/74
[2017-02-09] MEDS: CLOPIDOGREL 75 MG (PLAVIX) TABLET PO SCH (09:41)
[2017-02-09] MEDS: FAMOTIDINE 20 MG (PEPCID) TABLET PO SCH (09:41)
[2017-02-09] MEDS: MAGNESIUM OXIDE (MAG-OX)400 MG TAB PO SCH ×2 (09:41→23:16)
[2017-02-09] MEDS: KCL 10 MEQ TAB (MICRO K) PO SCH ×2 (09:41→23:16)
[2017-02-09] MEDS: amLODIPine 5 MG (NORVASC) TAB PO SCH (09:41)
[2017-02-09] MEDS: FERROUS SULF 325 MG (IRON) TAB PO SCH (09:41)
[2017-02-09] MEDS: NYSTATIN ORAL SUSP 5 ML UDC PO SCH ×2 (09:41→23:16)
[2017-02-09] MEDS: TERBINAFINE 1% CREAM 1 OZ (LamISIL) TUBE TP SCH ×3 (09:43→23:16)
[2017-02-09] MEDS: MENTHOL/ZINC OXIDE (CALMOSEPTINE) 113 GM TUBE TOP SCH ×2 (09:43→23:16)
[2017-02-09] MEDS: NS IV 1000 ML 1,000 ML IV SCH (09:44)
--- NOTE | 2017-02-09 11:32 | Progress Note (SOAP) ---
Subjective Date Seen by Provider: Feb 09, 2017 Time Seen by Provider: 11:29 Subjective/Events-last exam [facility]up fall in jail, UTI, renal insufficiency, DM II, weakness. Sitting up in bed. Reports cold--wants more covers. Objective Exam Vital Signs Date Time Temp Pulse Resp B/P (MAP) Pulse Ox O2 Delivery O2 Flow Rate FiO2 02/09/17 08:42 97.3 91 18 148/74 98 Room Air 02/09/17 00:00 98.6 92 22 130/58 93 Room Air 02/08/17 18:24 98 Room Air 02/08/17 15:40 96.9 89 18 114/58 97 Room Air I & O 02/09/17 07:00 Intake Total 1200 ml Balance 1200 ml Capillary Refill : Less Than 3 Seconds General Appearance: No Apparent Distress Neck: Supple Respiratory: Lungs Clear Cardiovascular: Regular Rate, Rhythm, Systolic Murmur Gastrointestinal: normal bowel sounds, non tender, soft Extremity: Non Tender, No Calf Tenderness, Pedal Edema Neurologic/Psychiatric: Alert, Oriented x3 Skin: Ecchymosis (right forehead), Other (wounds to heals and lower legs with dressings in place) Results Lab Laboratory Tests 02/08/17 15:41: Glucometer 147H 02/08/17 19:45: Glucometer 236H 02/09/17 05:14: Glucometer 167H 02/09/17 05:33: White Blood Count 9.9, Red Blood Count 3.49L, Hemoglobin 9.1L, Hematocrit 29L, Mean Corpuscular Volume 84, Mean Corpuscular Hemoglobin 26, Mean Corpuscular Hemoglobin Concent 31L, Red Cell Distribution Width 19.6H, Platelet Count 415H, Mean Platelet Volume 11.1H, Neutrophils (%) (Auto) 77H, Lymphocytes (%) (Auto) 16, Monocytes (%) (Auto) 6, Eosinophils (%) (Auto) 1, Basophils (%) (Auto) 0, Neutrophils # (Auto) 7.6, Lymphocytes # (Auto) 1.6, Monocytes # (Auto) 0.6, Eosinophils # (Auto) 0.1, Basophils # (Auto) 0.0, Sodium Level 141, Potassium Level 4.4, Chloride Level 120H, Carbon Dioxide Level 12L, Anion Gap 9, Blood Urea Nitrogen 23H, Creatinine 1.56H, Estimat Glomerular Filtration Rate 33, BUN/ Creatinine Ratio 15, Glucose Level 156H, Calcium Level 8.6, Magnesium Level 1.6L 02/09/17 10:53: Glucometer 209H Microbiology 02/06/17 Urine Culture - Final, Complete Escherichia Coli Assessment/Plan Assessment/Plan Assess & Plan/Chief Complaint 1. Acute renal failure- Continue merrem for UTI and continue IVF, Cr improved today 2. Urinary tract infection with E coli- Continue merrem 3. COPD- RT protocol, continue duo nebs 4. Diabetes- continue sliding scale insulin replacement 5. Coronary artery disease- Continue home medications 6. Hypomagnesium- magnesium replacement Clinical Quality Measures DVT/VTE Risk/Contraindication: Risk Factor Score Per Nursin RFS Level Per Nursing on Admit: 4+=Very High MONE HERNANDEZ DO Feb 09, 2017 11:32
[2017-02-09] MEDS ORDERED: MAGNESIUM 1 GM/100 ML IVPB 100 ML IV ONE (13:00)
[2017-02-09 16:45] VITALS: BP 137/78
[2017-02-09] MEDS: ATORVASTATIN 40 MG (LIPITOR) TABLET PO SCH (23:16)
[2017-02-10 00:50] VITALS: BP 138/64
[2017-02-10] MEDS: NS IV 1000 ML 1,000 ML IV SCH ×2 (02:08→18:25)
[2017-02-10] MEDS: ACETAMINOPHEN 500 MG TAB (TYLENOL) PO PRN (02:19)
[2017-02-10 06:08] LABS: BASOPHILS % (AUTO) 0 % (0-10); EOSINOPHILS # (AUTO) 0.1 10^3/uL (0.0-0.3); EOSINOPHILS % (AUTO) 1 % (0-10); LYMPHOCYTES # (AUTO) 1.1 X 10^3 (1.0-4.0); LYMPHOCYTES % (AUTO) 9 % (12-44); MEAN CORPUSCULAR HEMOGLOBIN 26 PG (25-34); MEAN CORPUSCULAR HGB CONC 32 G/DL (32-36); MEAN CORPUSCULAR VOLUME 83 FL (80-99); MEAN PLATELET VOLUME 11.1 FL (7.4-10.4); MONOCYTES # (AUTO) 0.6 X 10^3 (0.0-1.0); MONOCYTES % (AUTO) 5 % (0-12); NEUTROPHILS # (AUTO) 10.3 X 10^3 (1.8-7.8); NEUTROPHILS % (AUTO) 85 % (42-75); PLATELET COUNT 434 10^3/uL (130-400); RED BLOOD COUNT 3.42 10^6/uL (4.35-5.85); RED CELL DISTRIBUTION WIDTH 19.7 % (10.0-14.5)
[2017-02-10] MEDS: inSUlin (REGULAR) HUMAN 1 UNIT/0.01 ML (CHARGE PER UNIT) SC SCH ×4 (06:22→19:58)
[2017-02-10 06:23] LABS: CALCIUM 8.4 MG/DL (8.5-10.1); CREATININE SERUM 1.1 MG/DL (0.60-1.30); MAGNESIUM 1.6 MG/DL (1.8-2.4)
[2017-02-10] MEDS: MULTIVIT W/MINERALS TAB (THERAGRAN M) PO SCH (06:28)
[2017-02-10] MEDS: MEROPENEM 500 MG/NS 100 ML IVPB IV SCH ×4 (06:28→13:16)
--- NOTE | 2017-02-10 07:43 | Progress Note (SOAP) ---
Subjective Time Seen by Provider: 07:35 Subjective/Events-last exam patient feeling much better today. Patient having much diarrhea. Patient has history of C. difficile. Kidney function has improved to 49 today. Acute renal failure resolving. infection. COPD. Diabetes. UTI. Hypomagnesemia Objective Exam Vital Signs Date Time Temp Pulse Resp B/P (MAP) Pulse Ox O2 Delivery O2 Flow Rate FiO2 02/10/17 07:23 Room Air 02/10/17 00:50 97.9 90 20 138/64 94 Room Air 02/09/17 20:00 94 Room Air 02/09/17 18:37 Room Air 02/09/17 16:45 98.2 91 18 137/78 96 Room Air 02/09/17 08:42 97.3 91 18 148/74 98 Room Air I & O 02/10/17 07:00 Intake Total 2600 ml Balance 2600 ml Capillary Refill : Less Than 3 Seconds General Appearance: No Apparent Distress, WD/WN HEENT: Normal ENT Inspection Neck: Full Range of Motion, Normal Inspection Respiratory: Chest Non Tender, Lungs Clear, Normal Breath Sounds, No Accessory Muscle Use, No Respiratory Distress Cardiovascular: Regular Rate, Rhythm, No Murmur Gastrointestinal: non tender, soft Results Lab Laboratory Tests 02/09/17 10:53: Glucometer 209H 02/09/17 14:49: Glucometer 169H 02/09/17 16:46: Glucometer 127H 02/09/17 20:16: Glucometer 103 02/10/17 05:45: White Blood Count 12.0H, Red Blood Count 3.42L, Hemoglobin 9.0L, Hematocrit 28L , Mean Corpuscular Volume 83, Mean Corpuscular Hemoglobin 26, Mean Corpuscular Hemoglobin Concent 32, Red Cell Distribution Width 19.7H, Platelet Count 434H, Mean Platelet Volume 11.1H, Neutrophils (%) (Auto) 85H, Lymphocytes (%) (Auto) 9L, Monocytes (%) (Auto) 5, Eosinophils (%) (Auto) 1, Basophils (%) (Auto) 0, Neutrophils # (Auto) 10.3H, Lymphocytes # (Auto) 1.1, Monocytes # (Auto) 0.6, Eosinophils # (Auto) 0.1, Basophils # (Auto) 0.0, Sodium Level 142, Potassium Level 4.0, Chloride Level 120H, Carbon Dioxide Level 14L, Anion Gap 8, Blood Urea Nitrogen 15, Creatinine 1.10, Estimat Glomerular Filtration Rate 49, BUN/ Creatinine Ratio 14, Glucose Level 151H, Calcium Level 8.4L, Magnesium Level 1.6L Microbiology 02/06/17 Urine Culture - Final, Complete Escherichia Coli Assessment/Plan Assessment/Plan Assess & Plan/Chief Complaint acute renal failure resolving. Diarrhea checking for C. difficile. Anemia. UTI checking today. COPD. Diabetes. Hypertension history. Coronary artery disease. Hypomagnesemia. Patient feeling better Clinical Quality Measures DVT/VTE Risk/Contraindication: Risk Factor Score Per Nursin RFS Level Per Nursing on Admit: 4+=Very High THOMAS CLAIRE DO Feb 10, 2017 07:43
[2017-02-10] MEDS: NYSTATIN ORAL SUSP 5 ML UDC PO SCH ×2 (08:03→22:31)
[2017-02-10] MEDS: amLODIPine 5 MG (NORVASC) TAB PO SCH (08:04)
[2017-02-10] MEDS: MENTHOL/ZINC OXIDE (CALMOSEPTINE) 113 GM TUBE TOP SCH ×2 (08:04→22:32)
[2017-02-10] MEDS: KCL 10 MEQ TAB (MICRO K) PO SCH ×2 (08:04→22:31)
[2017-02-10] MEDS: FAMOTIDINE 20 MG (PEPCID) TABLET PO SCH (08:04)
[2017-02-10] MEDS: MAGNESIUM OXIDE (MAG-OX)400 MG TAB PO SCH ×2 (08:04→22:31)
[2017-02-10] MEDS: CLOPIDOGREL 75 MG (PLAVIX) TABLET PO SCH (08:04)
[2017-02-10] MEDS: FERROUS SULF 325 MG (IRON) TAB PO SCH (08:04)
[2017-02-10] MEDS: TERBINAFINE 1% CREAM 1 OZ (LamISIL) TUBE TP SCH ×3 (08:05→22:32)
[2017-02-10 08:21] VITALS: BP 145/75
[2017-02-10] MEDS: MAGNESIUM 1 GM/100 ML IVPB 100 ML IV SCH ×2 (08:43→09:44)
--- OUTSIDE RECORDS SUMMARY | 2017-02-10 09:53 | XMS REPORT | Continuity of Care Document ---
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 potassium measurement (moles/volume) 3.3 mmol/L 3.6-5.0 Serum or plasma chloride measurement (moles/volume) 116 mmol /L 98-107 Carbon dioxide 13 mmol/L 21-32 Serum or plasma anion gap determination (moles/volume) 12 mmol/L 5-14 Serum or plasma urea nitrogen measurement (mass/volume) 36 mg/dL 7-18 Serum or plasma creatinine measurement (mass/volume) 2.06 mg /dL 0.60-1.30 Serum or plasma urea nitrogen/creatinine mass ratio 17 NRG Serum or plasma creatinine measurement with calculation of estimated glomerular filtration rate 24 NRG Serum or plasma glucose measurement (mass/volume) 85 mg/dL 70-105 Serum or plasma calcium measurement (mass/volume) 8.2 mg/dL 8.5-10.1 Serum or plasma total bilirubin measurement (mass/volume) 0.3 mg/dL 0.1-1.0 Serum or plasma alkaline phosphatase measurement (enzymatic activity/volume) 46 U/L 40-136 Serum or plasma aspartate aminotransferase measurement (enzymatic activity/ volume) 7 U/L 5-34 Serum or plasma alanine aminotransferase measurement (enzymatic activity/volume ) < U/L 0-55 Serum or plasma protein measurement (mass/volume) 5.6 g/dL 6.4-8.2 Serum or plasma albumin measurement (mass/volume) 2.9 g/dL 3.2-4.5 Automated blood complete blood count (hemogram) panel - 12/27/16 06:03 Blood leukocytes automated count (number/volume) 8.0 10*3/ uL 4.3-11.0 Blood erythrocytes automated count (number/volume) 3.62 10*6 /uL 4.35-5.85 Venous blood hemoglobin measurement (mass/volume) 9.4 g/dL 11.5-16.0 Blood hematocrit (volume fraction) 29 % 35-52 Automated erythrocyte mean corpuscular volume 80 [foz_us] 80-99 Automated erythrocyte mean corpuscular hemoglobin (mass per erythrocyte) 26 pg 25-34 Automated erythrocyte mean corpuscular hemoglobin concentration measurement ( mass/volume) 33 g/dL 32-36 Automated erythrocyte distribution width ratio 14.2 % 10.0-14.5 Automated blood platelet count (count/volume) 441 10*3/uL 130-400 Automated blood platelet mean volume measurement 10.2 [foz_ us] 7.4-10.4 Comprehensive metabolic panel - 12/27/16 06:03 Serum or plasma sodium measurement (moles/volume) 141 mmol/ L 135-145 Serum or plasma potassium measurement (moles/volume) 3.2 mmol/L 3.6-5.0 Serum or plasma chloride measurement (moles/volume) 115 mmol /L 98-107 Carbon dioxide 17 mmol/L 21-32 Serum or plasma anion gap determination (moles/volume) 9 mmol/L 5-14 Serum or plasma urea nitrogen measurement (mass/volume) 18 mg/dL 7-18 Serum or plasma creatinine measurement (mass/volume) 1.02 mg /dL 0.60-1.30 Serum or plasma urea nitrogen/creatinine mass ratio 18 NRG Serum or plasma creatinine measurement with calculation of estimated glomerular filtration rate 54 NRG Serum or plasma glucose measurement (mass/volume) 140 mg/dL 70-105 Serum or plasma calcium measurement (mass/volume) 8.2 mg/dL 8.5-10.1 Serum or plasma total bilirubin measurement (mass/volume) 0.3 mg/dL 0.1-1.0 Serum or plasma alkaline phosphatase measurement (enzymatic activity/volume) 45 U/L 40-136 Serum or plasma aspartate aminotransferase measurement (enzymatic activity/ volume) 9 U/L 5-34 Serum or plasma alanine aminotransferase measurement (enzymatic activity/volume ) < U/L 0-55 Serum or plasma protein measurement (mass/volume) 5.5 g/dL 6.4-8.2 Serum or plasma albumin measurement (mass/volume) 2.8 g/dL 3.2-4.5 Automated blood complete blood count (hemogram) panel - 12/28/16 06:25 Blood leukocytes automated count (number/volume) 8.3 10*3/ uL 4.3-11.0 Blood erythrocytes automated count (number/volume) 3.89 10*6 /uL 4.35-5.85 Venous blood hemoglobin measurement (mass/volume) 10.1 g/dL 11.5-16.0 Blood hematocrit (volume fraction) 31 % 35-52 Automated erythrocyte mean corpuscular volume 79 [foz_us] 80-99 Automated erythrocyte mean corpuscular hemoglobin (mass per erythrocyte) 26 pg 25-34 Automated erythrocyte mean corpuscular hemoglobin concentration measurement ( mass/volume) 33 g/dL 32-36 Automated erythrocyte distribution width ratio 14.2 % 10.0-14.5 Automated blood platelet count (count/volume) 446 10*3/uL 130-400 Automated blood platelet mean volume measurement 10.0 [foz_ us] 7.4-10.4 Comprehensive metabolic panel - 12/28/16 06:25 Serum or plasma sodium measurement (moles/volume) 140 mmol/ L 135-145 Serum or plasma potassium measurement (moles/volume) 3.3 mmol/L 3.6-5.0 Serum or plasma chloride measurement (moles/volume) 112 mmol /L 98-107 Carbon dioxide 18 mmol/L 21-32 Serum or plasma anion gap determination (moles/volume) 10 mmol/L 5-14 Serum or plasma urea nitrogen measurement (mass/volume) 6 mg /dL 7-18 Serum or plasma creatinine measurement (mass/volume) 0.70 mg /dL 0.60-1.30 Serum or plasma urea nitrogen/creatinine mass ratio 9 NRG Serum or plasma creatinine measurement with calculation of estimated glomerular filtration rate > NRG Serum or plasma glucose measurement (mass/volume) 95 mg/dL 70-105 Serum or plasma calcium measurement (mass/volume) 8.0 mg/dL 8.5-10.1 Serum or plasma total bilirubin measurement (mass/volume) 0.3 mg/dL 0.1-1.0 Serum or plasma alkaline phosphatase measurement (enzymatic activity/volume) 49 U/L 40-136 Serum or plasma aspartate aminotransferase measurement (enzymatic activity/ volume) 10 U/L 5-34 Serum or plasma alanine aminotransferase measurement (enzymatic activity/volume ) < U/L 0-55 Serum or plasma protein measurement (mass/volume) 5.6 g/dL 6.4-8.2 Serum or plasma albumin measurement (mass/volume) 3.0 g/dL 3.2-4.5 Complete blood count (CBC) with automated white blood cell (WBC) differential - 12/29/16 04:54 Blood leukocytes automated count (number/volume) 8.0 10*3/ uL 4.3-11.0 Blood erythrocytes automated count (number/volume) 3.71 10*6 /uL 4.35-5.85 Venous blood hemoglobin measurement (mass/volume) 9.7 g/dL 11.5-16.0 Blood hematocrit (volume fraction) 29 % 35-52 Automated erythrocyte mean corpuscular volume 79 [foz_us] 80-99 Automated erythrocyte mean corpuscular hemoglobin (mass per erythrocyte) 26 pg 25-34 Automated erythrocyte mean corpuscular hemoglobin concentration measurement ( mass/volume) 33 g/dL 32-36 Automated erythrocyte distribution width ratio 14.3 % 10.0-14.5 Automated blood platelet count (count/volume) 433 10*3/uL 130-400 Automated blood platelet mean volume measurement 10.3 [foz_ us] 7.4-10.4 Automated blood neutrophils/100 leukocytes 63 % 42-75 Automated blood lymphocytes/100 leukocytes 24 % 12-44 Blood monocytes/100 leukocytes 12 % 0-12 Automated blood eosinophils/100 leukocytes 1 % 0-10 Automated blood basophils/100 leukocytes 0 % 0-10 Blood neutrophils automated count (number/volume) 5.1 10*3 1.8-7.8 Blood lymphocytes automated count (number/volume) 1.9 10*3 1.0-4.0 Blood monocytes automated count (number/volume) 0.9 10*3 0.0-1.0 Automated eosinophil count 0.1 10*3/uL 0.0-0.3 Automated blood basophil count (count/volume) 0.0 10*3/uL 0.0-0.1 Serum or plasma renal function panel (Na, K, Cl, CO2, BUN, Cr, glucose,Ca, phos , alb) - 12/29/16 04:54 Serum or plasma sodium measurement (moles/volume) 139 mmol/ L 135-145 Serum or plasma potassium measurement (moles/volume) 3.3 mmol/L 3.6-5.0 Serum or plasma chloride measurement (moles/volume) 112 mmol /L 98-107 Carbon dioxide 18 mmol/L 21-32 Serum or plasma anion gap determination (moles/volume) 9 mmol/L 5-14 Serum or plasma urea nitrogen measurement (mass/volume) 4 mg /dL 7-18 Serum or plasma creatinine measurement (mass/volume) 0.65 mg /dL 0.60-1.30 Serum or plasma urea nitrogen/creatinine mass ratio 6 NRG Serum or plasma creatinine measurement with calculation of estimated glomerular filtration rate > NRG Serum or plasma glucose measurement (mass/volume) 90 mg/dL 70-105 Serum or plasma calcium measurement (mass/volume) 7.4 mg/dL 8.5-10.1 Serum or plasma albumin measurement (mass/volume) 2.6 g/dL 3.2-4.5 Serum or plasma phosphate measurement (mass/volume) 1.5 mg/ dL 2.3-4.7 Magnesium - 12/29/16 04:54 Magnesium 0.8 mg/dL 1.8-2.4 Magnesium - 12/29/16 11:55 Magnesium 1.5 mg/dL 1.8-2.4 Clostridium difficile detection - 01/08/17 18:23 C DIFF MOLECULAR RESULT Negative for toxigenic C diff by DNA amplification NRG Stool occult blood screen - 01/08/17 18:23 Stool gastrointestinal hemoglobin detection NEGATIVE NEGATIVE Stool bacteria identification by culture - 01/08/17 18:23 Stool bacteria identification by culture N2 NRG Complete urinalysis with reflex to culture - 01/19/17 22:30 Urine color determination BROWN NRG Urine clarity determination VERY CLOUDY NRG Urine pH measurement by test strip 5 5- 9 Specific gravity of urine by test strip 1.015 1.016-1.022 Urine protein assay by test strip, semi-quantitative 2+ NEGATIVE Urine glucose detection by automated test strip NEGATIVE NEGATIVE Erythrocytes detection in urine sediment by light microscopy 2+ NEGATIVE Urine ketones detection by automated test strip NEGATIVE NEGATIVE Urine nitrite detection by test strip POSITIVE NEGATIVE Urine total bilirubin detection by test strip NEGATIVE NEGATIVE Urine urobilinogen measurement by automated test strip (mass/volume) NORMAL NORMAL Urine leukocyte esterase detection by dipstick 3+ NEGATIVE Automated urine sediment erythrocyte count by microscopy (number/high power field) NONE NRG Automated urine sediment leukocyte count by microscopy (number/high power field ) TNTC NRG Bacteria detection in urine sediment by light microscopy LARGE NRG Crystals detection in urine sediment by light microscopy NONE NRG Casts detection in urine sediment by light microscopy NONE NRG Mucus detection in urine sediment by light microscopy SMALL NRG Complete urinalysis with reflex to culture YES NRG Renal epithelial cells detection in urine sediment by light microscopy NONE NRG Bacterial urine culture - 01/19/17 22:30 Bacterial urine culture SEE COMMEN NRG COLONY COUNT . NRG FTX;REPORTABLE SENSITIVITY REPORTED 6/20 09:00 [facility], [place] Bacterial susceptibility panel - 01/19/17 22:30 Gentamicin susceptibility test by minimum inhibitory concentration <= NRG Trimethoprim/sulfamethoxazole susceptibility test by minimum inhibitoryconcentration <= NRG Ampicillin susceptibility test by minimum inhibitory concentration >= NRG Tobramycin susceptibility test by minimum inhibitory concentration <= NRG Cefazolin susceptibility test by minimum inhibitory concentration 16 NRG Ceftriaxone susceptibility test by minimum inhibitory concentration <= NRG Ampicillin/sulbactam susceptibility test by minimum inhibitory concentration >= NRG Piperacillin/tazobactam susceptibility test by minimum inhibitory concentration <= NRG Ciprofloxacin susceptibility test by minimum inhibitory concentration >= NRG Meropenem susceptibility test by minimum inhibitory concentration <= NRG Nitrofurantoin susceptibility test by minimum inhibitory concentration 128 NRG Aztreonam susceptibility test by minimum inhibitory concentration <= NRG Extended spectrum beta lactamase (ESBL) producing bacteria susceptibility test by minimum inhibitory concentration - [facility] [place] Bacterial susceptibility panel - 01/19/17 22:30 Gentamicin susceptibility test by minimum inhibitory concentration R NRG Vancomycin susceptibility test by minimum inhibitory concentration >= NRG Levofloxacin susceptibility test by minimum inhibitory concentration 1 NRG Tetracycline susceptibility test by minimum inhibitory concentration >= NRG Ampicillin susceptibility test by minimum inhibitory concentration <= NRG Nitrofurantoin susceptibility test by minimum inhibitory concentration <= NRG Capillary blood glucose measurement by glucometer (mass/volume) - 02/06/17 14: 32 Capillary blood glucose measurement by glucometer (mass/volume) 335 mg/dL 70-110 Complete blood count (CBC) with automated white blood cell (WBC) differential - 02/06/17 15:45 Blood leukocytes automated count (number/volume) 13.0 10*3/ uL 4.3-11.0 Blood erythrocytes automated count (number/volume) 3.77 10*6 /uL 4.35-5.85 Venous blood hemoglobin measurement (mass/volume) 10.1 g/dL 11.5-16.0 Blood hematocrit (volume fraction) 31 % 35-52 Automated erythrocyte mean corpuscular volume 81 [foz_us] 80-99 Automated erythrocyte mean corpuscular hemoglobin (mass per erythrocyte) 27 pg 25-34 Automated erythrocyte mean corpuscular hemoglobin concentration measurement ( mass/volume) 33 g/dL 32-36 Automated erythrocyte distribution width ratio 18.4 % 10.0-14.5 Automated blood platelet count (count/volume) 407 10*3/uL 130-400 Automated blood platelet mean volume measurement 11.1 [foz_ us] 7.4-10.4 Automated blood neutrophils/100 leukocytes 81 % 42-75 Automated blood lymphocytes/100 leukocytes 13 % 12-44 Blood monocytes/100 leukocytes 6 % 0-12 Automated blood eosinophils/100 leukocytes 1 % 0-10 Automated blood basophils/100 leukocytes 0 % 0-10 Blood neutrophils automated count (number/volume) 10.5 10*3 1.8-7.8 Blood lymphocytes automated count (number/volume) 1.7 10*3 1.0-4.0 Blood monocytes automated count (number/volume) 0.8 10*3 0.0-1.0 Automated eosinophil count 0.1 10*3/uL 0.0-0.3 Automated blood basophil count (count/volume) 0.0 10*3/uL 0.0-0.1 PT panel in platelet poor plasma by coagulation assay - 02/06/17 15:45 Prothrombin time (PT) in platelet poor plasma by coagulation assay 17.1 s 12.2-14.7 INR in platelet poor plasma or blood by coagulation assay 1.4 0.8-1.4 Activated partial thromboplastin time (aPTT) in platelet poor plasma bycoagulation assay - 02/06/17 15:45 Activated partial thromboplastin time (aPTT) in platelet poor plasma bycoagulation assay 26 s 24-35 Comprehensive metabolic panel - 02/06/17 15:45 Serum or plasma sodium measurement (moles/volume) 135 mmol/ L 135-145 Serum or plasma potassium measurement (moles/volume) 4.1 mmol/L 3.6-5.0 Serum or plasma chloride measurement (moles/volume) 110 mmol /L 98-107 Carbon dioxide 18 mmol/L 21-32 Serum or plasma anion gap determination (moles/volume) 7 mmol/L 5-14 Serum or plasma urea nitrogen measurement (mass/volume) 28 mg/dL 7-18 Serum or plasma creatinine measurement (mass/volume) 2.37 mg /dL 0.60-1.30 Serum or plasma urea nitrogen/creatinine mass ratio 12 NRG Serum or plasma creatinine measurement with calculation of estimated glomerular filtration rate 20 NRG Serum or plasma glucose measurement (mass/volume) 317 mg/dL 70-105 Serum or plasma calcium measurement (mass/volume) 8.3 mg/dL 8.5-10.1 Serum or plasma total bilirubin measurement (mass/volume) 0.2 mg/dL 0.1-1.0 Serum or plasma alkaline phosphatase measurement (enzymatic activity/volume) 58 U/L 40-136 Serum or plasma aspartate aminotransferase measurement (enzymatic activity/ volume) 16 U/L 5-34 Serum or plasma alanine aminotransferase measurement (enzymatic activity/volume ) 8 U/L 0-55 Serum or plasma protein measurement (mass/volume) 6.3 g/dL 6.4-8.2 Serum or plasma albumin measurement (mass/volume) 3.0 g/dL 3.2-4.5 Magnesium - 02/06/17 15:45 Magnesium 2.0 mg/dL 1.8-2.4 Serum or plasma ethanol measurement (mass/volume) - 02/06/17 15:45 Serum or plasma ethanol measurement (mass/volume) < mg/dL <10 Urine drug screening test - 02/06/17 17:17 Urine phencyclidine detection by screening method NEGATIVE NEGATIVE Urine benzodiazepines detection by screening method NEGATIVE NEGATIVE Urine cocaine detection NEGATIVE NEGATIVE Urine amphetamines detection by screening method NEGATIVE NEGATIVE Urine methamphetamine detection by screening method NEGATIVE NEGATIVE Urine cannabinoids detection by screening method NEGATIVE NEGATIVE Urine opiates detection by screening method NEGATIVE NEGATIVE Urine barbiturates detection NEGATIVE NEGATIVE Screening urine tricyclic antidepressants detection NEGATIVE NEGATIVE Urine methadone detection by screening method NEGATIVE NEGATIVE Urine oxycodone detection NEGATIVE NEGATIVE Urine propoxyphene detection NEGATIVE NEGATIVE Complete urinalysis with reflex to culture - 02/06/17 17:17 Urine color determination WERO NRG Urine clarity determination SLIGHTLY CLOUDY NRG Urine pH measurement by test strip 5 5- 9 Specific gravity of urine by test strip 1.020 1.016-1.022 Urine protein assay by test strip, semi-quantitative 2+ NEGATIVE Urine glucose detection by automated test strip NEGATIVE NEGATIVE Erythrocytes detection in urine sediment by light microscopy NEGATIVE NEGATIVE Urine ketones detection by automated test strip NEGATIVE NEGATIVE Urine nitrite detection by test strip POSITIVE NEGATIVE Urine total bilirubin detection by test strip NEGATIVE NEGATIVE Urine urobilinogen measurement by automated test strip (mass/volume) NORMAL NORMAL Urine leukocyte esterase detection by dipstick 3+ NEGATIVE Automated urine sediment erythrocyte count by microscopy (number/high power field) NONE NRG Automated urine sediment leukocyte count by microscopy (number/high power field ) [HPF] NRG Bacteria detection in urine sediment by light microscopy MODERATE NRG Squamous epithelial cells detection in urine sediment by light microscopy 5-10 NRG Crystals detection in urine sediment by light microscopy NONE NRG Casts detection in urine sediment by light microscopy NONE NRG Mucus detection in urine sediment by light microscopy NEGATIVE NRG Complete urinalysis with reflex to culture YES NRG Bacterial urine culture - 02/06/17 17:17 Bacterial urine culture [id number] NRG COLONY COUNT >100,000/ML NRG FTX;REPORTABLE SENSITIVITY REPORTED 02/08/17 7:35 NRG Bacterial susceptibility panel - 02/06/17 17:17 Gentamicin susceptibility test by minimum inhibitory concentration >= NRG Trimethoprim/sulfamethoxazole susceptibility test by minimum inhibitoryconcentration >= NRG Ampicillin susceptibility test by minimum inhibitory concentration >= NRG Tobramycin susceptibility test by minimum inhibitory concentration 8 NRG Cefazolin susceptibility test by minimum inhibitory concentration <= NRG Ceftriaxone susceptibility test by minimum inhibitory concentration <= NRG Ampicillin/sulbactam susceptibility test by minimum inhibitory concentration >= NRG Piperacillin/tazobactam susceptibility test by minimum inhibitory concentration <= NRG Ciprofloxacin susceptibility test by minimum inhibitory concentration >= NRG Meropenem susceptibility test by minimum inhibitory concentration <= NRG Nitrofurantoin susceptibility test by minimum inhibitory concentration 128 NRG Aztreonam susceptibility test by minimum inhibitory concentration <= NRG Extended spectrum beta lactamase (ESBL) producing bacteria susceptibility test by minimum inhibitory concentration - NRG Amikacin susceptibility test by minimum inhibitory concentration S NRG Capillary blood glucose measurement by glucometer (mass/volume) - 02/06/17 19: 59 Capillary blood glucose measurement by glucometer (mass/volume) 200 mg/dL 70-110 Capillary blood glucose measurement by glucometer (mass/volume) - 02/07/17 05: 07 Capillary blood glucose measurement by glucometer (mass/volume) 161 mg/dL 70-110 Complete blood count (CBC) with automated white blood cell (WBC) differential - 02/07/17 08:09 Blood leukocytes automated count (number/volume) 10.2 10*3/ uL 4.3-11.0 Blood erythrocytes automated count (number/volume) 3.55 10*6 /uL 4.35-5.85 Venous blood hemoglobin measurement (mass/volume) 9.3 g/dL 11.5-16.0 Blood hematocrit (volume fraction) 29 % 35-52 Automated erythrocyte mean corpuscular volume 82 [foz_us] 80-99 Automated erythrocyte mean corpuscular hemoglobin (mass per erythrocyte) 26 pg 25-34 Automated erythrocyte mean corpuscular hemoglobin concentration measurement ( mass/volume) 32 g/dL 32-36 Automated erythrocyte distribution width ratio 18.6 % 10.0-14.5 Automated blood platelet count (count/volume) 422 10*3/uL 130-400 Automated blood platelet mean volume measurement 10.6 [foz_ us] 7.4-10.4 Automated blood neutrophils/100 leukocytes 77 % 42-75 Automated blood lymphocytes/100 leukocytes 16 % 12-44 Blood monocytes/100 leukocytes 6 % 0-12 Automated blood eosinophils/100 leukocytes 1 % 0-10 Automated blood basophils/100 leukocytes 0 % 0-10 Blood neutrophils automated count (number/volume) 7.9 10*3 1.8-7.8 Blood lymphocytes automated count (number/volume) 1.6 10*3 1.0-4.0 Blood monocytes automated count (number/volume) 0.6 10*3 0.0-1.0 Automated eosinophil count 0.1 10*3/uL 0.0-0.3 Automated blood basophil count (count/volume) 0.0 10*3/uL 0.0-0.1 Comprehensive metabolic panel - 02/07/17 08:09 Serum or plasma sodium measurement (moles/volume) 138 mmol/ L 135-145 Serum or plasma potassium measurement (moles/volume) 4.0 mmol/L 3.6-5.0 Serum or plasma chloride measurement (moles/volume) 113 mmol /L 98-107 Carbon dioxide 17 mmol/L 21-32 Serum or plasma anion gap determination (moles/volume) 8 mmol/L 5-14 Serum or plasma urea nitrogen measurement (mass/volume) 28 mg/dL 7-18 Serum or plasma creatinine measurement (mass/volume) 2.19 mg /dL 0.60-1.30 Serum or plasma urea nitrogen/creatinine mass ratio 13 NRG Serum or plasma creatinine measurement with calculation of estimated glomerular filtration rate 22 NRG Serum or plasma glucose measurement (mass/volume) 155 mg/dL 70-105 Serum or plasma calcium measurement (mass/volume) 8.7 mg/dL 8.5-10.1 Serum or plasma total bilirubin measurement (mass/volume) 0.4 mg/dL 0.1-1.0 Serum or plasma alkaline phosphatase measurement (enzymatic activity/volume) 56 U/L 40-136 Serum or plasma aspartate aminotransferase measurement (enzymatic activity/ volume) 10 U/L 5-34 Serum or plasma alanine aminotransferase measurement (enzymatic activity/volume ) 10 U/L 0-55 Serum or plasma protein measurement (mass/volume) 6.4 g/dL 6.4-8.2 Serum or plasma albumin measurement (mass/volume) 3.2 g/dL 3.2-4.5 Magnesium - 02/07/17 08:09 Magnesium 1.5 mg/dL 1.8-2.4 Capillary blood glucose measurement by glucometer (mass/volume) - 02/07/17 12: 01 Capillary blood glucose measurement by glucometer (mass/volume) 186 mg/dL 70-110 Capillary blood glucose measurement by glucometer (mass/volume) - 02/07/17 16: 47 Capillary blood glucose measurement by glucometer (mass/volume) 209 mg/dL 70-110 Capillary blood glucose measurement by glucometer (mass/volume) - 02/07/17 20: 57 Capillary blood glucose measurement by glucometer (mass/volume) 120 mg/dL 70-110 Capillary blood glucose measurement by glucometer (mass/volume) - 02/08/17 05: 21 Capillary blood glucose measurement by glucometer (mass/volume) 121 mg/dL 70-110 Complete blood count (CBC) with automated white blood cell (WBC) differential - 02/08/17 06:33 Blood leukocytes automated count (number/volume) 13.5 10*3/ uL 4.3-11.0 Blood erythrocytes automated count (number/volume) 3.85 10*6 /uL 4.35-5.85 Venous blood hemoglobin measurement (mass/volume) 10.2 g/dL 11.5-16.0 Blood hematocrit (volume fraction) 32 % 35-52 Automated erythrocyte mean corpuscular volume 83 [foz_us] 80-99 Automated erythrocyte mean corpuscular hemoglobin (mass per erythrocyte) 27 pg 25-34 Automated erythrocyte mean corpuscular hemoglobin concentration measurement ( mass/volume) 32 g/dL 32-36 Automated erythrocyte distribution width ratio 19.4 % 10.0-14.5 Automated blood platelet count (count/volume) 444 10*3/uL 130-400 Automated blood platelet mean volume measurement 10.9 [foz_ us] 7.4-10.4 Automated blood neutrophils/100 leukocytes 76 % 42-75 Automated blood lymphocytes/100 leukocytes 16 % 12-44 Blood monocytes/100 leukocytes 7 % 0-12 Automated blood eosinophils/100 leukocytes 1 % 0-10 Automated blood basophils/100 leukocytes 0 % 0-10 Blood neutrophils automated count (number/volume) 10.3 10*3 1.8-7.8 Blood lymphocytes automated count (number/volume) 2.1 10*3 1.0-4.0 Blood monocytes automated count (number/volume) 1.0 10*3 0.0-1.0 Automated eosinophil count 0.1 10*3/uL 0.0-0.3 Automated blood basophil count (count/volume) 0.0 10*3/uL 0.0-0.1 Comprehensive metabolic panel - 02/08/17 06:33 Serum or plasma sodium measurement (moles/volume) 140 mmol/ L 135-145 Serum or plasma potassium measurement (moles/volume) 4.2 mmol/L 3.6-5.0 Serum or plasma chloride measurement (moles/volume) 116 mmol /L 98-107 Carbon dioxide 11 mmol/L 21-32 Serum or plasma anion gap determination (moles/volume) 13 mmol/L 5-14 Serum or plasma urea nitrogen measurement (mass/volume) 26 mg/dL 7-18 Serum or plasma creatinine measurement (mass/volume) 2.02 mg /dL 0.60-1.30 Serum or plasma urea nitrogen/creatinine mass ratio 13 NRG Serum or plasma creatinine measurement with calculation of estimated glomerular filtration rate 24 NRG Serum or plasma glucose measurement (mass/volume) 142 mg/dL 70-105 Serum or plasma calcium measurement (mass/volume) 8.6 mg/dL 8.5-10.1 Serum or plasma total bilirubin measurement (mass/volume) 0.3 mg/dL 0.1-1.0 Serum or plasma alkaline phosphatase measurement (enzymatic activity/volume) 60 U/L 40-136 Serum or plasma aspartate aminotransferase measurement (enzymatic activity/ volume) 13 U/L 5-34 Serum or plasma alanine aminotransferase measurement (enzymatic activity/volume ) 9 U/L 0-55 Serum or plasma protein measurement (mass/volume) 6.4 g/dL 6.4-8.2 Serum or plasma albumin measurement (mass/volume) 3.1 g/dL 3.2-4.5 Capillary blood glucose measurement by glucometer (mass/volume) - 02/08/17 10: 11 Capillary blood glucose measurement by glucometer (mass/volume) 153 mg/dL 70-110 Capillary blood glucose measurement by glucometer (mass/volume) - 02/08/17 15: 41 Capillary blood glucose measurement by glucometer (mass/volume) 147 mg/dL 70-110 Capillary blood glucose measurement by glucometer (mass/volume) - 02/08/17 19: 45 Capillary blood glucose measurement by glucometer (mass/volume) 236 mg/dL 70-110 Encounters ACCT No. Visit Date/Time Discharge Status Pt. Type Provider Facility Loc./Unit Complaint [id number] 12/25/2016 15:20:00 2016 15:40:00 DIS Inpatient THOMAS CLAIRE DO [facility] 4TH ACUTE RENAL FAILURE, DIARRHEA [id number] 09/22/2016 09:20:00 2016 12:48:00 DIS Emergency NORIS MARTIN MD [facility] ER FALL [id number] 08/28/2016 10:23:00 2016 12:30:00 DIS Emergency VEDA ZABALA DO [facility] ER FALL/HEAD INJURY [id number] 08/27/2014 16:11:00 2014 18:03:00 DIS Emergency CHLOE SALEH [facility] ER R HIP PAIN [id number] 12/20/2013 15:35:00 2013 23:59:59 CLS Outpatient THOMAS CLAIRE DO [facility] RAD NECK PAIN [id number] 11/08/2013 14:43:00 2013 16:32:00 DIS Emergency VEDA ZABALA DO [facility] ER BACK/LEFT HIP PAIN [id number] 03/13/2013 01:41:00 2012 02:23:00 DIS Emergency CINTIA JACKSON MD [facility] ER INJ AT HOME [id number] 02/06/2017 17:30:00 ACT Inpatient THOMAS CLAIRE DO [facility] 4TH ACUTE RENAL FAILURE,FALL [id number] 01/19/2017 22:30:00 ACT Outpatient THOMAS CLAIRE DO [facility] LABNPT N19.5 [id number] 01/08/2017 20:15:00 ACT Outpatient THOMAS CLAIRE DO [facility] LABNPT R19.7 [id number] 12/21/2016 15:07:00 ACT Outpatient THOMAS CLAIRE DO [facility] LABNPT K59.00, E78.4, E56.9 [id number] 12/08/2016 23:44:00 ACT Outpatient THOMAS CLAIRE DO [facility] LABNPT R39.9 [id number] 08/27/2014 16:11:00 Document Registration [id number] 08/21/2012 11:07:00 Document Registration [id number] 07/12/2012 16:00:00 Document Registration [id number] 07/10/2012 21:16:00 Document Registration [id number] 07/04/2012 21:35:00 Document Registration
--- NOTE | 2017-02-10 11:27 | Physical Therapy Progress Note ---
Therapy Progress Note Patient adamantly declined x 2 attempts (950 and 1120). RN is aware. Will attempt later today or tomorrow. 2 visit ref x 2 KAVIN OSWALD PT Feb 10, 2017 11:27
[2017-02-10] MEDS ORDERED: MAGNESIUM 1 GM/100 ML IVPB 100 ML IV ONE (11:30)
--- NOTE | 2017-02-10 14:06 | Physical Therapy Progress Note ---
Therapy Progress Note Patient declined PT this p.m. stating, "I just want to sleep." PT attempted to encourage patient to participate, however, she continued to decline. PT to attempt in a.m. 1 visit ref KAVIN OSWALD PT Feb 10, 2017 14:06
[2017-02-10 17:25] VITALS: BP 136/63
--- NOTE | 2017-02-10 18:58 | Wound Care Progress Note ---
Subjective Subjective Subjective/Events-last exam The patient is a 66-year-old female transferred [facility] a [facility] after a fall with abrasion to her forehead, found to have urinary tract infection, and admitted. On admission the patient was noted to have bilateral heel ulcers and an ulcer of the sacrum. The patient has had a previous stroke, is nonambulatory , and according to nursing staff is maximum assist to transfer. The patient was urged to be up in the chair as much as possible, and when in bed to be on the right or left side, to allow healing of her sacral wound. She stated she would do this, in my presence. 2 minutes later, when asked to return to her side by the nursing staff, she refused to move off of her back. The patient was clearly told that her wounds would not heal with her laying on her back, in view of her incontinence. Past medical history: The patient has COPD coronary artery disease hypertension stroke urinary incontinence arthritis chronic back pain debility diabetes depression. Family history: None pertinent. Social history: The patient is a smoker, marital history not documented. Review of Systems Date Seen by Provider: Feb 10, 2017 Time Seen by Provider: 18:30 General: No Chills, Fatigue HEENT: No Head Aches, No Visual Changes Pulmonary: No Dyspnea Cardiovascular: No: Chest Pain Gastrointestinal: Nausea Genitourinary: Dysuria, Incontinence Musculoskeletal: back pain, leg pain, shoulder pain Neurological: Incoordination, Numbness, Weakness Integumentary: Wounds as described. Endocrine: Diabetes mellitus, [id number], poorly controlled. Objective Exam Last Set of Vital Signs Vital Signs Date Time Temp Pulse Resp B/P (MAP) Pulse Ox O2 Delivery O2 Flow Rate FiO2 02/10/17 17:25 97.8 94 20 136/63 95 Room Air Capillary Refill : Less Than 3 Seconds I&O Intake and Output 02/10/17 00:00 Intake Total 1450 ml Balance 1450 ml Intake Oral 250 ml IV Total 1200 ml # Voids 4 # Bowel Movements 5 General: Alert, Mild Distress (Does not like to be turned.) HEENT: Mucous Memb Moist/[place], Other (Abrasion right forehead.) Neck: No JVD, No LAD Lungs: Clear to Auscultation, Normal Air Movement Heart: Regular Rate, No Murmurs Abdomen: Normal Bowel Sounds, Soft Extremities: Other (Moderate bilateral edema.) Skin: Other (Sacral ulcer: 3.0 x 1.2 x 0.2 cm, 100% slough, moderate serosanguineous drainage, periwound macerated with numerous small areas of partial thickness ulcerations. Right heel ulcer: 1.8 x 2.4 x 0.1 cm, desiccated brown blister; left heel ulcer 1.5 x 2.5 x 0.1: Nonblanching pigment change, stage I.) Results Lab Laboratory Tests 02/09/17 20:16: Glucometer 103 02/10/17 05:45: White Blood Count 12.0H, Red Blood Count 3.42L, Hemoglobin 9.0L, Hematocrit 28L , Mean Corpuscular Volume 83, Mean Corpuscular Hemoglobin 26, Mean Corpuscular Hemoglobin Concent 32, Red Cell Distribution Width 19.7H, Platelet Count 434H, Mean Platelet Volume 11.1H, Neutrophils (%) (Auto) 85H, Lymphocytes (%) (Auto) 9L, Monocytes (%) (Auto) 5, Eosinophils (%) (Auto) 1, Basophils (%) (Auto) 0, Neutrophils # (Auto) 10.3H, Lymphocytes # (Auto) 1.1, Monocytes # (Auto) 0.6, Eosinophils # (Auto) 0.1, Basophils # (Auto) 0.0, Sodium Level 142, Potassium Level 4.0, Chloride Level 120H, Carbon Dioxide Level 14L, Anion Gap 8, Blood Urea Nitrogen 15, Creatinine 1.10, Estimat Glomerular Filtration Rate 49, BUN/ Creatinine Ratio 14, Glucose Level 151H, Calcium Level 8.4L, Magnesium Level 1.6L 02/10/17 06:21: Glucometer 171H 02/10/17 10:48: Glucometer 222H 02/10/17 14:31: Glucometer 162H 02/10/17 18:35: Glucometer 151H Microbiology 02/06/17 Urine Culture - Final, Complete Escherichia Coli Assessment/Plan Assessment/Plan Assessment/Plan 1. Pressure ulcer sacrum, unstageable, with surrounding moisture associated skin damage, with superficial ulceration. 2. Urinary incontinence, with constantly moist perineum. 3. Pressure ulcer, right heel, stage II. 4. Usher ulcer, left heel, stage I. 5. Previous stroke with debility. 6. Diabetes mellitus, with hyperglycemia. 7. COPD, coronary artery disease, with ongoing smoking. Plan: We have ordered a barrier paste for the sacrum, and would continue the Allevyn pads and floating of the heels, the nursing staff has been urged to place her in the right lateral lower left lateral decubitus positions and a 30 angle as much as possible. As shown tonight the patient declines that. The likelihood of this wound healing is very low, given this finding. Likelihood of it progressing to a more advanced stage, and potentially life-threatening infection and osteomyelitis is a great. These points were emphasized to the patient. AUSTYN BUTT MD Feb 10, 2017 18:58
[2017-02-10 20:06] LABS: BILIRUBIN,URINE NEGATIVE (NEGATIVE); KETONES,URINE NEGATIVE (NEGATIVE); LEUKOCYTE ESTERASE ,URINE NEGATIVE (NEGATIVE); NITRITE,URINE NEGATIVE (NEGATIVE); PH,URINE 5 (5-9); PROTEIN,URINE 1+ (NEGATIVE); UROBILINOGEN,URINE NORMAL (NORMAL)
[2017-02-10 20:15] LABS: SQUAMOUS EPITHELIAL CELL,UR 0-2 /HPF
[2017-02-10] MEDS: ATORVASTATIN 40 MG (LIPITOR) TABLET PO SCH (22:31)
[2017-02-11 00:28] VITALS: BP 140/68
--- OUTSIDE RECORDS SUMMARY | 2017-02-11 04:17 | XMS REPORT | Continuity of Care Document ---
Author Author [facility] Organization [facility] Address Unknown Phone Unavailable Allergies Active Description Code Type Severity Reaction Onset Reported/Identified Relationship to Patient Clinical Status Yes Penicillins [id number] Drug Allergy Unknown N/A 02/02/2008 Yes morphine [id number] Drug Allergy Mild N/A 11/08/2013 Medications Problems [...] VEDA ZABALA DO Ot Y92.[address] 08/28/2016 VEDA ZABALA DO Ot Y99.8 OTHER EXTERNAL CAUSE STATUS 08/28/2016 VEDA ZABALA DO Ot Z79.02 SKILLED NURSING (CURRENT) USE OF ANTITHROMBOTI 08/28/2016 TOMAS ZABALA DOYousuf Moe Ot Z79.84 MAKEUP INSTRUCTOR (CURRENT) USE OF ORAL HYPOGLYC 08/28/2016 THOMAS [...] NORIS MARTIN MD Ot Y92.[address] 09/22/2016 NORIS MARTIN MD Ot Y99.8 OTHER EXTERNAL CAUSE STATUS 09/22/2016 NORIS MARTIN MD Ot Z79.02 SKILLED NURSING (CURRENT) USE OF ANTITHROMBOTI 09/22/2016 NORIS MARTIN MD Ot Z79.84 MAKEUP INSTRUCTOR (CURRENT) USE OF ORAL HYPOGLYC 09/22/2016 NORIS MARTIN MD Ot Z79.899 OTHER SKILLED NURSING (CURRENT) DRUG THERAPY 09/24/2016 NORIS MARTIN MD [...] NORIS MARTIN MD Ot Y92.[address] 09/24/2016 NORIS MARTIN MD Ot Y99.8 OTHER EXTERNAL CAUSE STATUS 09/24/2016 NORIS MARTIN MD Ot Z79.02 MAKEUP INSTRUCTOR (CURRENT) USE OF ANTITHROMBOTI 09/24/2016 NORIS MARTIN MD Ot Z79.84 SKILLED NURSING (CURRENT) USE OF ORAL HYPOGLYC 09/24/2016 NORIS MARTIN MD Ot Z79.899 OTHER SKILLED NURSING (CURRENT) DRUG THERAPY 10/02/2016 Ot 250.00 DIAB [...] To Ot I25.10 ATHSCL HEART DISEASE OF [place] CORONARY 12/29/2016 GELDER , THOMAS To Ot [...] R19.7 DIARRHEA, UNSPECIFIED 12/29/2016 GELLENDER DO, THOMAS To Ot R26.81 UNSTEADINESS ON FEET 12/29/2016 GELDER DO, THOMAS To Ot R32 UNSPECIFIED URINARY INCONTINENCE 12/29/2016 GELLENDER DO, THOMAS To Ot R53.1 WEAKNESS 12/29/2016 GELLENDER DO, THOMAS To Ot Z79.84 MAKEUP INSTRUCTOR (CURRENT) USE OF ORAL HYPOGLYC 12/29/2016 GELDER [...] To Ot I25.10 ATHSCL HEART DISEASE OF [place] CORONARY 01/06/2017 GELDER , THOMAS To Ot J44.9 CHRONIC OBSTRUCTIVE PULMONARY DISEASE , U 01/06/2017 GELLENDER DO, THOMAS To Ot M54.2 CERVICALGIA 01/06/2017 GELLENDER DO, THOMAS To Ot M54.9 DORSALGIA, UNSPECIFIED 01/06/2017 GELLENDER DO, THOMAS To Ot N17.9 ACUTE KIDNEY FAILURE, UNSPECIFIED 01/06/2017 GELLENDER DO, THOMAS To Ot N39.0 URINARY TRACT INFECTION, SITE NOT SPECIF 01/06/2017 GELLENDER DO, THOMAS To Ot R26.81 UNSTEADINESS ON FEET 01/06/2017 GELLENDER DO, THOMAS To Ot R32 UNSPECIFIED URINARY INCONTINENCE 01/06/2017 GELLENDER DOTHOMAS Ot R53.1 WEAKNESS 01/06/2017 GELLENDER DO, THOMAS To Ot Z79.84 SKILLED NURSING (CURRENT) USE OF ORAL HYPOGLYC 01/06/2017 GELLENDER [...] To Ot I25.10 ATHSCL HEART DISEASE OF [place] CORONARY 02/07/2017 GELLENDER DO, THOMAS To Ot [...] UNSTEADINESS ON FEET 02/07/2017 ISABELLLENDER DO, THOMAS oT Ot R53.1 WEAKNESS 02/07/2017 DAKOTAH BLUE, THOMAS To Ot S00.83XA CONTUSION OF OTHER PART OF HEAD, INITIAL 02/07/2017 DAKOTAH BLUE, THOMAS To Ot W05.0XXA FALL FROM NON-MOVING WHEELCHAIR, INITIAL 02/07/2017 DAKOTAH BLUE, THOMAS To Ot Y92.[address] DETENTION PLACE 02/07/2017 DAKOTAH DO, THOMAS To Ot Z79.02 SKILLED NURSING (CURRENT) USE OF ANTITHROMBOTI 02/07/2017 ISABELLLENDER , THOMAS To Ot Z79.84 MAKEUP INSTRUCTOR (CURRENT) USE OF ORAL HYPOGLYC 02/07/2017 ISABELLLEN, [...] BLUETHOMAS Ot I25.10 ATHSCL HEART DISEASE OF [place] CORONARY 02/07/2017 ISABELLDER DOTHOMAS Ot J44.9 CHRONIC [...] THOMAS To Ot Y92.[address] DETENTION PLACE 02/07/2017 NAYDER DO, THOMAS To Ot Z79.02 SKILLED NURSING (CURRENT) USE OF ANTITHROMBOTI 02/07/2017 ISABELLLENDER DO, THOMAS To Ot Z79.84 SKILLED NURSING (CURRENT) USE OF ORAL HYPOGLYC 02/07/2017 ISABELLLENDER [...] calculation of estimated glomerular filtration rate 13 [facility] Serum or plasma glucose measurement (mass/volume) 149 [...] culture - 12/25/16 14:05 Bacterial urine culture [id number] NRG COLONY COUNT <10,000 NRG FTX;REPORTABLE SENSITIVITY REPORTED AT 0926, 12-27-16 NR URINE CULTURE RESULTS PLUS NRG FREE TEXT ENTRY 2 UNUSUAL RESISTANCE PATTERN DETECTED, NRG FREE TEXT ENTRY 3 ESBL IDENTIFIED. [facility] Bacterial susceptibility panel - 12/25/16 14:05 Gentamicin [...] AJITH ECKERT 12/26/16 9:55 BY Slava VALENTINE [facility] SPECIAL CONTACT SPECIAL CONTACT PRECAUTIONS NEEDED NRG RESULTS POSITIVE FOR ANTIGEN AND TOXIN A/B NR Stool bacteria identification by culture - 12/25/16 22:10 Stool bacteria identification by culture N2 [facility] [id number] - 12/25/16 22:10 [id number] FOOTNOTE NR Complete blood count (CBC) with [...] . NRG FTX;REPORTABLE SENSITIVITY REPORTED 6/20 09:00 [facility] Bacterial susceptibility panel - 01/19/17 22:30 Gentamicin [...] susceptibility test by minimum inhibitory concentration - [facility] Bacterial susceptibility panel - 01/19/17 22:30 Gentamicin [...] culture - 02/06/17 17:17 Bacterial urine culture [id number] NRG COLONY COUNT >100,000/ML NRG FTX;REPORTABLE SENSITIVITY [...] Status Pt. Type Provider Facility Loc./Unit Complaint [id number] 12/25/2016 15:20:00 2016 15:40:00 DIS Inpatient THOMAS CLAIRE DO [facility] 4TH ACUTE RENAL FAILURE, DIARRHEA [id number] 09/22/2016 09:20:00 2016 12:48:00 DIS Emergency NORIS MARTIN MD [facility] ER FALL [id number] 08/28/2016 10:23:00 2016 12:30:00 DIS Emergency VEDA ZABALA DO [facility] ER FALL/HEAD INJURY [id number] 08/27/2014 16:11:00 2014 18:03:00 DIS Emergency CHLOE SALEH [facility] ER R HIP PAIN [id number] 12/20/2013 15:35:00 2013 23:59:59 CLS Outpatient THOMAS CLAIRE DO [facility] RAD NECK PAIN [id number] 11/08/2013 14:43:00 2013 16:32:00 DIS Emergency VEDA ZABALA DO [facility] ER BACK/LEFT HIP PAIN [id number] 03/13/2013 01:41:00 2012 02:23:00 DIS Emergency CINTIA JACKSON MD [facility] ER INJ AT HOME [id number] 02/06/2017 17:30:00 ACT Inpatient THOMAS CLAIRE DO [facility] 4TH ACUTE RENAL FAILURE,FALL [id number] 01/19/2017 22:30:00 ACT Outpatient THOMAS CLAIRE DO [facility] LABNPT N19.5 [id number] 01/08/2017 20:15:00 ACT Outpatient THOMAS CLAIRE DO [facility] LABNPT R19.7 [id number] 12/21/2016 15:07:00 ACT Outpatient THOMAS CLAIRE DO [facility] LABNPT K59.00, E78.4, E56.9 [id number] 12/08/2016 23:44:00 ACT Outpatient THOMAS CLAIRE DO [facility] LABNPT R39.9 [id number] 08/27/2014 16:11:00 Document Registration [id number] 08/21/2012 11:07:00 Document Registration [id number] 07/12/2012 16:00:00 Document Registration [id number] 07/10/2012 21:16:00 Document Registration [id number] 07/04/2012 21:35:00 Document Registration
[2017-02-11 06:01] LABS: MEAN PLATELET VOLUME 10.6 FL (7.4-10.4); RED BLOOD COUNT 3.09 10^6/uL (4.35-5.85); RED CELL DISTRIBUTION WIDTH 19.8 % (10.0-14.5); WHITE BLOOD COUNT 9.8 10^3/uL (4.3-11.0)
[2017-02-11] MEDS: inSUlin (REGULAR) HUMAN 1 UNIT/0.01 ML (CHARGE PER UNIT) SC SCH ×2 (06:02→11:14)
[2017-02-11 06:16] LABS: ALANINE AMINOTRANSFERASE < 6 U/L (0-55); ALBUMIN 2.3 GM/DL (3.2-4.5); ANION GAP 6 MMOL/L (5-14); ASPARTATE AMINO TRANSFERASE 10 U/L (5-34); BILIRUBIN,TOTAL 0.4 MG/DL (0.1-1.0); BLOOD UREA NITROGEN 10 MG/DL (7-18); BUN/CREATININE RATIO 11; CARBON DIOXIDE 16 MMOL/L (21-32); CHLORIDE 123 MMOL/L (98-107); CREATININE SERUM 0.89 MG/DL (0.60-1.30); GFR ESTIMATED > 60; GLUCOSE 112 MG/DL (70-105); MAGNESIUM 1.8 MG/DL (1.8-2.4); POTASSIUM 3.4 MMOL/L (3.6-5.0); SODIUM 145 MMOL/L (135-145); TOTAL PROTEIN 4.8 GM/DL (6.4-8.2)
[2017-02-11] MEDS: MULTIVIT W/MINERALS TAB (THERAGRAN M) PO SCH (06:45)
[2017-02-11] MEDS ORDERED: KCL 10 MEQ TAB (MICRO K) PO NR (07:45)
--- NOTE | 2017-02-11 07:54 | Progress Note (SOAP) ---
Subjective Time Seen by Provider: 07:45 Subjective/Events-last exam patient doing better today. UA shows bladder TIA resolved. Kidney function good. Patient voices no complaints. COPD. Diabetes. CAD. Hypertension. Plan to discharge today Objective Exam Vital Signs Date Time Temp Pulse Resp B/P (MAP) Pulse Ox O2 Delivery O2 Flow Rate FiO2 02/11/17 07:33 94 Room Air 02/11/17 00:28 97.6 101 16 140/68 93 Room Air 02/10/17 23:06 Room Air 02/10/17 20:00 93 Room Air 02/10/17 17:25 97.8 94 20 136/63 95 Room Air 02/10/17 08:21 98.4 91 20 145/75 94 Room Air 02/10/17 08:00 94 Room Air I & O 02/11/17 07:00 Intake Total 1240 ml Balance 1240 ml Capillary Refill : Less Than 3 Seconds General Appearance: No Apparent Distress, WD/WN HEENT: Normal ENT Inspection Neck: Full Range of Motion, Normal Inspection Respiratory: Chest Non Tender, Normal Breath Sounds, No Accessory Muscle Use, No Respiratory Distress Cardiovascular: Regular Rate, Rhythm, No JVD Gastrointestinal: non tender, soft Results Lab Laboratory Tests 02/11/17 05:50 Laboratory Tests 02/10/17 10:48: Glucometer 222H 02/10/17 14:31: Glucometer 162H 02/10/17 18:35: Glucometer 151H 02/10/17 19:55: Urine Color YELLOW, Urine Clarity CLEAR, Urine pH 5, Urine Specific [place] 1.015L, Urine Protein 1+H, Urine Glucose (UA) NEGATIVE, Urine Ketones NEGATIVE, Urine Nitrite NEGATIVE, Urine Bilirubin NEGATIVE, Urine Urobilinogen NORMAL, Urine Leukocyte Esterase NEGATIVE, Urine RBC (Auto) NEGATIVE, Urine RBC NONE, Urine WBC NONE, Urine Squamous Epithelial Cells 0-2, Urine Crystals NONE, Urine Bacteria NONE, Urine Casts NONE, Urine Mucus NEGATIVE, Urine Culture Indicated NO 02/11/17 05:50: White Blood Count 9.8, Red Blood Count 3.09L, Hemoglobin 8.1L, Hematocrit 26L, Mean Corpuscular Volume 84, Mean Corpuscular Hemoglobin 26, Mean Corpuscular Hemoglobin Concent 31L, Red Cell Distribution Width 19.8H, Platelet Count 360, Mean Platelet Volume 10.6H, Sodium Level 145, Potassium Level 3.4L, Chloride Level 123H, Carbon Dioxide Level 16L, Anion Gap 6, Blood Urea Nitrogen 10, Creatinine 0.89, Estimat Glomerular Filtration Rate > 60, BUN/Creatinine Ratio 11, Glucose Level 112H, Calcium Level 8.0L, Magnesium Level 1.8, Total Bilirubin 0.4, Aspartate Amino Transf (AST/SGOT) 10, Alanine Aminotransferase ( ALT/SGPT) < 6, Alkaline Phosphatase 48, Total Protein 4.8L, Albumin 2.3L 02/11/17 05:59: Glucometer 106 Microbiology 02/06/17 Urine Culture - Final, Complete Escherichia Coli Assessment/Plan Assessment/Plan Assess & Plan/Chief Complaint acute renal failure resolving. Diarrhea checking for C. difficile. Anemia. UTI checking today. COPD. Diabetes. Hypertension history. Coronary artery disease. Hypomagnesemia. Patient feeling better. . 02/11/17. Acute renal failure resolved. UA shows infection gone. Fall. Diarrhea waiting for C. difficile. Anemia. COPD. Patient feeling better today. Plan to discharge today Clinical Quality Measures DVT/VTE Risk/Contraindication: Risk Factor Score Per Nursin RFS Level Per Nursing on Admit: 4+=Very High THOMAS CLAIRE DO Feb 11, 2017 07:54
--- NOTE | 2017-02-11 07:58 | Discharge Inst-Skilled Nursing ---
Discharge Inst-Skilled NF Patient Instructions Patient Problems: UTI resolved. Renal failure resolved. Patient Instructions: 2 office in one week Consult/Follow Up/Orders Follow Up Appt.: 2 office in one week Skilled NF Admit to: [facility] Certification (SNF) I certify that SNF services are required to be given on an inpatient basis because of the above named patient's need for usp care on a continuing basis for the conditions(s) for which he/she was receiving inpatient hospital services prior to his/her transfer to the SNF. Correction Facility Order: Nursing Services, Coordinate Measuring Machine Programmer-Evaluate & Treat, Physical Therapy-Evaluate & Treat Discharge Diet: ADA Diet New & Resume Previous Orders Eugenio Claire Feb 11, 2017 07:56 EUGENIO CLAIRE DO Feb 11, 2017 07:58
[2017-02-11 08:26] VITALS: BP 137/68
[2017-02-11] MEDS ORDERED: METR500T PO (08:45)
[2017-02-11] MEDS ORDERED: metroNIDAZOLE 500 MG (FLAGYL) TAB PO SCH (09:00)
[2017-02-11] MEDS: NYSTATIN ORAL SUSP 5 ML UDC PO SCH (09:27)
[2017-02-11] MEDS: FAMOTIDINE 20 MG (PEPCID) TABLET PO SCH (09:27)
[2017-02-11] MEDS: MAGNESIUM OXIDE (MAG-OX)400 MG TAB PO SCH (09:27)
[2017-02-11] MEDS: KCL 10 MEQ TAB (MICRO K) PO SCH (09:27)
[2017-02-11] MEDS: FERROUS SULF 325 MG (IRON) TAB PO SCH (09:27)
[2017-02-11] MEDS: CLOPIDOGREL 75 MG (PLAVIX) TABLET PO SCH (09:27)
[2017-02-11] MEDS: amLODIPine 5 MG (NORVASC) TAB PO SCH (09:27)
[2017-02-11] MEDS: MENTHOL/ZINC OXIDE (CALMOSEPTINE) 113 GM TUBE TOP SCH (09:28)
[2017-02-11] MEDS: TERBINAFINE 1% CREAM 1 OZ (LamISIL) TUBE TP SCH (09:28)
[2017-02-11 13:30] VITALS: BP 137/68
== END 2017-02-11 13:30 | DRG 683 ==
LOC: EDUNIT# 13:19 → ER 13:20 → 4TH 17:30
PROVIDERS: ADMIT Family Medicine; ATTEND Family Medicine
DX: N17.9 Acute kidney failure, unspecified (principal); N39.0 Urinary tract infection, site not specified; S00.83XA Contusion of other part of head, initial encounter; B96.20 Unspecified Escherichia coli [E. coli] as the cause of diseases classified elsewhere; M25.512 Pain in left shoulder; G47.10 Hypersomnia, unspecified; I25.10 Atherosclerotic heart disease of native coronary artery without angina pectoris; J44.9 Chronic obstructive pulmonary disease, unspecified; I10 Essential (primary) hypertension; D64.9 Anemia, unspecified; E11.65 Type 2 diabetes mellitus with hyperglycemia; F17.210 Nicotine dependence, cigarettes, uncomplicated; E78.00 Pure hypercholesterolemia, unspecified; E83.42 Hypomagnesemia; K59.00 Constipation, unspecified; F32.9 Major depressive disorder, single episode, unspecified; R26.81 Unsteadiness on feet; R53.1 Weakness; M54.2 Cervicalgia; W05.0XXA Fall from non-moving wheelchair, initial encounter; Y92.129 Unspecified place in nursing home as the place of occurrence of the external cause; Z79.02 Long term (current) use of antithrombotics/antiplatelets; Z86.73 Personal history of transient ischemic attack (TIA), and cerebral infarction without residual deficits; Z79.84 Long term (current) use of oral hypoglycemic drugs; L89.150 Pressure ulcer of sacral region, unstageable; L89.612 Pressure ulcer of right heel, stage 2; L89.621 Pressure ulcer of left heel, stage 1; R32 Unspecified urinary incontinence
CPT/HCPCS: 36415; 51701; 70450; 71010; 72125; 76937; 80048; 80053; 80306; 80320; 81000; 82962; 83735; 85025; 85027; 85610; 85730; 87077; 87088; 87186; 87324; 87449; 93041; 94760; 96361; 96374

== ENCOUNTER 2017-02-24 21:13 | Observation (INO) | payer MEDICARE, MEDICAID ==
[~2017-02-24] VITALS: Ht 154.9 cm; Wt 78.1 kg
[~2017-02-24 21:13] MED LIST changes: +BARRIER CREAM TOP; +CLON0.5T25 PO; +DIPH25CA79 PO; +FERR-65 PO; +METR500T PO; +MULT-24 PO; +NSTR15C TP; +NYST1000 PO; +ONDN4T PO; +POTA10TA10 PO; +PROT946L PO; +SCOP1PAT TD; +[UNRECOGNIZED DRUG - CODE] PO
[2017-02-24] MEDS ORDERED: fentaNYL INJECTION 100 MCG/2 ML AMP IVP STA (21:27)
[2017-02-24] MEDS ORDERED: NS IV 500 ML 500 ML IV ONE (21:27)
--- NOTE | 2017-02-24 21:27 | ED Fall/Injury ---
General Chief Complaint: Trauma-Non Activation Stated Complaint: FALL Nursing Triage Note: FOUND ON GROUND IN CARE HOME BY STAFF. C/O BILATERAL KNEE PAIN. DENIES OTHER COMPLAINTS AT THIS TIME. NO LOC REPORTED. BROUGHT IN BY [facility] Source: patient, EMS Exam Limitations: no limitations History of Present Illness Time seen by provider: 21:18 Initial Comments Patient brought to your by EMS with chief complaint from the care home of a fall while in her room. Patient and EMS states she reports she fell on her knees but did not strike her head nor pass out. Patient is having some neck pain as well as bilateral knee pain and right hip pain. She also claims that her left clavicle is hurting. She denies any shortness of breath however says she's had more cough lately. Her cough is been nonproductive. She is not having any fevers chills, malaise. She is however having nausea. She denies any chest pain or shortness of breath. She has a history of diabetes blood pressure and no heart history. Location Injury Occurred: [place] Allergies and Home Medications Allergies Coded Allergies: morphine (Unverified Allergy, Mild, 11/08/13) "ACTS WEIRD" Penicillins (Unverified Allergy, Unknown, 02/02/08) Home Medications Acetaminophen 650 Mg Tablet.er, 650 MG PO Q4H PRN for PAIN-MILD, (Reported) NOT TO EXCEED 4 GRAMS PER DAY Albuterol Sulfate 18 Gm Hfa.aer.ad, 2 PUFF IH Q8H PRN for SHORTNESS OF BREATH, ( Reported) Amlodipine Besylate 5 Mg Tablet, 5 MG PO DAILY, (Reported) Atorvastatin Calcium 40 Mg Tablet, 40 MG PO HS, (Reported) Clonazepam 0.5 Mg Tab.rapdis, 0.5 MG PO Q12H PRN for ANXIETY, (Reported) Clopidogrel Bisulfate 75 Mg Tablet, 75 MG PO DAILY, (Reported) Diphenhydramine HCl 25 Mg Capsule, 25 MG PO Q8H PRN for ITCHING, (Reported) Docusate Sodium 100 Mg Capsule, 100 MG PO Q12H PRN for CONSTIPATION-1ST LINE, ( Reported) Escitalopram Oxalate 10 Mg Tablet, 10 MG PO DAILY, (Reported) Famotidine 20 Mg Tablet, 20 MG PO BID, (Reported) Ferrous Sulfate 325 Mg Tablet, 325 MG PO DAILY, (Reported) Guaifenesin 100 Mg/5 Ml Liquid, 10 ML PO Q4H PRN for COUGH, (Reported) Magnesium Hydroxide 400 Mg/5 Ml Oral.susp, 30 ML PO Q12H PRN for CONSTIPATION- 7TH LINE, (Reported) Magnesium Oxide 400 Mg Tablet, 400 MG PO BID, (Reported) Menthol/Camphor 56 Gm Cream..g., TP Q6H PRN for JOINT PAIN, (Reported) Metronidazole 500 Mg Tablet, 500 MG PO TID for 10 Days Prescribed by: PRANAV HANNA on 02/11/17 0845 Multivits,Stress Formula/Zinc 1 Each Tablet, 1 TAB PO DAILY, (Reported) Nut.tx.impaired Digest Fxn 200 Ml Liquid, 200 ML PO TID, (Reported) Nystatin 100,000 Unit/1 Ml Oral.susp, 5 ML PO BID for 10 Days, (Reported) 10 DAY SUPPLY START 01-28-17 Nystatin/Triamcinolone 15 Gm Cr, TP TID, (Reported) Ondansetron HCl 4 Mg Tab, 4 MG PO Q6H PRN for NAUSEA/VOMITING-1ST LINE, ( Reported) Potassium Chloride 10 Meq Tablet.er, 10 MEQ PO BID, (Reported) Protein Supplement 946 Ml Liquid, 30 ML PO DAILY, (Reported) Scopolamine 1 Each Patch.td72, 1 PATCH TD Q72H PRN for N/V, (Reported) Tramadol HCl 50 Mg Tablet, 50 MG PO Q12H PRN for PAIN-MODERATE, (Reported) [Barrier Cream] , TOP BID, (Reported) APPLY TO BILATERAL BUTTOCKS FOR PREVENTATIVE MEASURES Constitutional: No chills, No diaphoresis, No fever, malaise Eyes: Denies Blindness, Denies Blurred Vision Ears, Nose, Mouth, Throat: denies ear pain, denies nose discharge Respiratory: cough, No short of breath Cardiovascular: No chest pain, No edema, No palpitations, No syncope Gastrointestinal: No constipation, No diarrhea, nausea, No vomiting Genitourinary: No discharge, No dysuria : No Musculoskeletal: see HPI Skin: No pruritus, No rash Psychiatric/Neurological: Denies Headache, Denies Numbness Past Xdpbeon-Rwuscg-Iypheq Hx Patient Social History Alcohol Use: Denies Use Recreational Drug Use: No Smoking Status: Current Everyday Smoker Type Used: Cigarettes 2nd Hand Smoke Exposure: No Recent Hopitalizations: Yes Immunizations Up To Date Tetanus Booster (TDap): Unknown Seasonal Allergies Seasonal Allergies: No Surgeries HX Surgeries: Yes (CATARACTS) Surgeries: Section, Eye Surgery, Gallbladder Respiratory Hx Respiratory Disorders: Yes Respiratory Disorders: COPD Cardiovascular Hx Cardiac Disorders: Yes Cardiac Disorders: Coronary Artery Disease, High Cholesterol, Hypertension Neurological Hx Neurological Disorders: Yes Neurological Disorders: Stroke Reproductive System Hx Reproductive Disorders: No Genitourinary Hx Genitourinary Disorders: Yes (INCONTINENT) Gastrointestinal Hx Gastrointestinal Disorders: Yes Gastrointestinal Disorders: Chronic Constipation Musculoskeletal Hx Musculoskeletal Disorders: Yes (CHRONIC NECK AND BACK PAIN ; UNSTEADY GAIT AND GENERALIZED WEAKNESS) Musculoskeletal Disorders: Arthritis, Chronic Back Pain Endocrine Hx Endocrine Disorders: Yes Endocrine Disorders: Diabetes, Non-Insulin dep Cancer Hx Cancer: No Psychosocial Hx Psychiatric Problems: Yes Behavioral Health Disorders: Depression Integumentary HX Skin/Integumentary Disorder: No Blood Transfusions Hx Blood Disorders: No Adverse Reaction to a Blood Tr: No Family Medical History Significant Family History: No Pertinent Family Hx Physical Exam Vital Signs Vital Sign - Last 12Hours 02/24/17 21:20 Temp 99.6 Pulse 110 Resp 18 B/P (MAP) 167/75 Pulse Ox 96 O2 Delivery Room Air Capillary Refill : General Appearance: WD/WN, mild distress, other (images without opening eyes and mumbles) HEENT: PERRL/EOMI, TMs normal, other (oropharynx is very dry) Neck: non-tender, supple, normal inspection Cardiovascular: normal peripheral pulses, regular rate, rhythm, no edema Respiratory: chest non-tender, lungs clear, normal breath sounds Peripheral Pulses: 2+ Dorsalis Pedis (R), 2+ Left Dors-Pedis (L), 2+ Radial Pulses (R), 2+ Radial Pulses (L) Gastrointestinal: normal bowel sounds, non tender, soft Back: normal inspection, no vertebral tenderness Extremities: no pedal edema, no calf tenderness, normal capillary refill, other (Bilateral knees tender and tender this on greater trochanter right hip) Neurologic/Psychiatric: technical implementation lead II-XII nml as tested, no motor/sensory deficits, alert, oriented x 3, other (flat affect) Skin: normal color, warm/dry Ashby Coma Score Best Eye Response: (3) Open to Voice Best Verbal Response: (5) Oriented Best Motor Response: (6) Obeys Commands Jerry Total: 14 Progress/Results/Core Measures Results/Orders Lab Results Laboratory Tests Test 7/24/17 21:45 02/24/17 23:03 Range/Units White Blood Count 7.3 4.3-11.0 10^3/uL Red Blood Count 3.95 L 4.35-5.85 10^6/uL Hemoglobin 10.5 L 11.5-16.0 G/DL Hematocrit 34 L 35-52 % Mean Corpuscular Volume 85 80-99 FL Mean Corpuscular Hemoglobin 27 25-34 PG Mean Corpuscular Hemoglobin Concent 31 L 32-36 G/DL Red Cell Distribution Width 18.4 H 10.0-14.5 % Platelet Count 572 H 130-400 10^3/uL Mean Platelet Volume 10.6 H 7.4-10.4 FL Neutrophils (%) (Auto) 70 42-75 % Lymphocytes (%) (Auto) 19 12-44 % Monocytes (%) (Auto) 9 0-12 % Eosinophils (%) (Auto) 3 0-10 % Basophils (%) (Auto) 0 0-10 % Neutrophils # (Auto) 5.1 1.8-7.8 X 10^3 Lymphocytes # (Auto) 1.4 1.0-4.0 X 10^3 Monocytes # (Auto) 0.6 0.0-1.0 X 10^3 Eosinophils # (Auto) 0.2 0.0-0.3 10^3/uL Basophils # (Auto) 0.0 0.0-0.1 10^3/uL Sodium Level 138 135-145 MMOL/L Potassium Level 3.4 L 3.6-5.0 MMOL/L Chloride Level 106 98-107 MMOL/L Carbon Dioxide Level 19 L 21-32 MMOL/L Anion Gap 13 5-14 MMOL/L Blood Urea Nitrogen 11 7-18 MG/DL Creatinine 1.09 0.60-1.30 MG/DL Estimat Glomerular Filtration Rate 50 BUN/Creatinine Ratio 10 Glucose Level 220 H 70-105 MG/DL Calcium Level 8.7 8.5-10.1 MG/DL Magnesium Level 1.7 L 1.8-2.4 MG/DL Total Bilirubin 0.4 0.1-1.0 MG/DL Aspartate Amino Transf (AST/SGOT) 27 5-34 U/L Alanine Aminotransferase (ALT/SGPT) 16 0-55 U/L Alkaline Phosphatase 62 40-136 U/L Ammonia 25 11-32 UMOL/L Troponin I < 0.30 <0.30 NG/ML C-Reactive Protein High Sensitivity 0.90 H 0.00-0.50 MG/DL Total Protein 6.9 6.4-8.2 GM/DL Albumin 3.1 L 3.2-4.5 GM/DL Urine Color WERO H Urine Clarity CLEAR Urine pH 5 5-9 Urine Specific [place] 1.015 L 1.016-1.022 Urine Protein 2+ H NEGATIVE Urine Glucose (UA) NEGATIVE NEGATIVE Urine Ketones NEGATIVE NEGATIVE Urine Nitrite NEGATIVE NEGATIVE Urine Bilirubin NEGATIVE NEGATIVE Urine Urobilinogen NORMAL NORMAL MG/DL Urine Leukocyte Esterase 2+ H NEGATIVE Urine RBC (Auto) NEGATIVE NEGATIVE Urine RBC NONE /HPF Urine WBC 10-25 H /HPF Urine Squamous Epithelial Cells 2-5 /HPF Urine Crystals NONE /LPF Urine Bacteria NEGATIVE /HPF Urine Casts PRESENT /LPF Urine Hyaline Casts 2-5 H /LPF Urine Mucus NEGATIVE /LPF Urine Yeast MODERATE H /HPF Urine Culture Indicated YES My Orders Orders - NORIS MARTIN Ct Head/Cervical Spine Wo (02/24/17 21:27) Saline Lock/Iv-Start (02/24/17 21:27) Ammonia (02/24/17 21:27) Cbc With Automated Diff (02/24/17 21:27) Comprehensive Metabolic Panel (02/24/17 21:27) Hs C Reactive Protein (02/24/17 21:27) Magnesium (02/24/17 21:27) Troponin I (02/24/17 21:27) Ua Culture If Indicated (02/24/17 21:27) Chest 1 View, Ap/Pa Only (02/24/17 21:27) Clavicle, Left (02/24/17 21:27) Hip, Right, 2 Views (02/24/17 21:27) Fentanyl Injection (Sublimaze Injection (02/24/17 21:27) Ns Iv 500 Ml (Sodium Chloride 0.9%) (02/24/17 21:27) Ondansetron Injection (Zofran Injectio (02/24/17 21:30) Knee, 3 Views, Bilateral (02/24/17 21:27) Magnesium 1 Gm/100 Ml Ivpb (Magnesium Day (02/24/17 22:45) Potassium Cl 10meq/50ml Ivpb (Kcl 10 Meq (02/24/17 22:45) Urine Culture (02/24/17 23:03) Ceftriaxone Injection (Rocephin Injectio (02/25/17 00:30) Fentanyl Injection (Sublimaze Injection (02/25/17 00:30) Ns 1l Iv (02/25/17 00:45) Lactic Acid Analyzer (02/25/17 00:33) Medications Given in ED Current Medications Medications Dose Ordered Sig/Joey Route Start Time Stop Time Status Last Admin Dose Admin Magnesium Sulfate/ Dextrose 100 ml @ 100 mls/hr ONCE ONCE IV 02/24/17 22:45 02/24/17 23:44 DC 02/24/17 22:48 100 MLS/HR Ondansetron HCl 4 mg ONCE ONCE IVP 02/24/17 21:30 02/24/17 21:32 DC 02/24/17 21:45 4 MG Sodium Chloride 500 ml @ 0 mls/hr Q0M ONCE IV 02/24/17 21:27 02/24/17 21:32 DC 02/24/17 21:45 0 MLS/HR Vital Signs/I&O Vital Sign - Last 12Hours 02/24/17 02/24/17 02/25/17 21:20 21:45 00:00 Temp 99.6 99.6 98.2 Pulse 110 79 Resp 18 18 B/P (MAP) 167/75 124/41 Pulse Ox 96 95 O2 Delivery Room Air Room Air Intake and Output 02/25/17 00:00 Intake Total 650 ml Balance 650 ml Progress Note : Time: 00:28 Progress Note Patient has a UTI and a fall with no fractures. She is feeling better. Given her some fluids and started her on Rocephin while her pain is better controlled she is still quite dry and would probably be well served for an observation stay to help manage her pain get some fluids back in her and treat her infection. Diagnostic Imaging Diagonstic Imaging: Xray Plain Films/CT/US/NM/MRI: chest Comments No acute cardio pulmonary processes noted. Reviewed: Reviewed by Me Diagonstic Imaging: Xray Plain Films/CT/US/NM/MRI: knee (bilateral) Comments No acute osseous abnormalities noted. Reviewed: Reviewed by Me Diagonstic Imaging: Xray Plain Films/CT/US/NM/MRI: hip (right) Comments No acute osseous abnormality is noted Reviewed: Reviewed by Me Diagonstic Imaging: Xray Plain Films/CT/US/NM/MRI: other (left clavicle) Comments No acute osseous abnormalities noted. Degenerative changes noted throughout. Reviewed: Reviewed by Me Diagonstic Imaging: CT Plain Films/CT/US/NM/MRI: c-spine, head Comments No acute osseous abnormality is noted; no mass, midline shift, or intracranial bleed noted. No skull fracture. No acute intracranial hemorrhage or cortical ischemia. No skull fracture. Chronic ischemic changes cannot exclude acute on chronic ischemia. No acute fracture or subluxation of the C-spine Reviewed: Reviewed Night Hawk Study, Reviewed by Me Departure Communication Time/Spoke to Admitting Phy: 00:34 Communication Juma; discussed the case and possibility of sepsis secondary to UTI as well as her period being very dry and unsafe to go home as she is received narcotics in her to have fallen this very slow mentating. Discussed the stat read read of possible inability to exclude acute on chronic ischemia. He is okay to keep the patient overnight he'll see her in the morning and would like a CBC and CMP in the morning. Impression Impression: Primary Impression: Fall from standing Qualified Codes: W19.XXXA - Unspecified fall, initial encounter Additional Impressions: Sepsis Qualified Codes: A41.9 - Sepsis, unspecified organism UTI (urinary tract infection) Qualified Codes: N30.00 - Acute cystitis without hematuria Disposition: ADMITTED INPATIENT (obs) Condition: Stable Decision to Admit/Date: Feb 25, 2017 Time/Decision to Admit Time: 00:39 Departure-Patient Inst. Referrals: THOMAS CLAIRE DO (PCP/Family) Primary Care Physician Copy Copies To 1: THOMAS CLAIRE TITUS J Feb 24, 2017 21:27
[2017-02-24] MEDS ORDERED: ONDANSETRON 4 MG/2 ML (SDV) Z0FRAN IVP ONE (21:30)
[2017-02-24 21:54] LABS: BASOPHILS % (AUTO) 0 % (0-10); EOSINOPHILS # (AUTO) 0.2 10^3/uL (0.0-0.3); EOSINOPHILS % (AUTO) 3 % (0-10); LYMPHOCYTES # (AUTO) 1.4 X 10^3 (1.0-4.0); LYMPHOCYTES % (AUTO) 19 % (12-44); MEAN CORPUSCULAR HEMOGLOBIN 27 PG (25-34); MEAN CORPUSCULAR HGB CONC 31 G/DL (32-36); MEAN CORPUSCULAR VOLUME 85 FL (80-99); MEAN PLATELET VOLUME 10.6 FL (7.4-10.4); MONOCYTES # (AUTO) 0.6 X 10^3 (0.0-1.0); MONOCYTES % (AUTO) 9 % (0-12); NEUTROPHILS # (AUTO) 5.1 X 10^3 (1.8-7.8); NEUTROPHILS % (AUTO) 70 % (42-75); PLATELET COUNT 572 10^3/uL (130-400); RED BLOOD COUNT 3.95 10^6/uL (4.35-5.85); RED CELL DISTRIBUTION WIDTH 18.4 % (10.0-14.5); WHITE BLOOD COUNT 7.3 10^3/uL (4.3-11.0)
[2017-02-24 22:13] LABS: ALANINE AMINOTRANSFERASE 16 U/L (0-55); ALBUMIN 3.1 GM/DL (3.2-4.5); AMMONIA 25 UMOL/L (11-32); ANION GAP 13 MMOL/L (5-14); ASPARTATE AMINO TRANSFERASE 27 U/L (5-34); BILIRUBIN,TOTAL 0.4 MG/DL (0.1-1.0); BLOOD UREA NITROGEN 11 MG/DL (7-18); BUN/CREATININE RATIO 10; CALCIUM 8.7 MG/DL (8.5-10.1); CARBON DIOXIDE 19 MMOL/L (21-32); CHLORIDE 106 MMOL/L (98-107); CREATININE SERUM 1.09 MG/DL (0.60-1.30); GFR ESTIMATED 50; GLUCOSE 220 MG/DL (70-105); MAGNESIUM 1.7 MG/DL (1.8-2.4); POTASSIUM 3.4 MMOL/L (3.6-5.0); SODIUM 138 MMOL/L (135-145); TOTAL PROTEIN 6.9 GM/DL (6.4-8.2)
[2017-02-24 22:36] LABS: TROPONIN I < 0.30 NG/ML (<0.30)
[2017-02-24] MEDS ORDERED: MAGNESIUM 1 GM/100 ML IVPB 100 ML IV ONE (22:45)
[2017-02-24] MEDS: POTASSIUM CL 10MEQ/50ML IVPB 50 ML IV SCH ×2 (22:48→23:59)
[2017-02-24 23:09] LABS: BILIRUBIN,URINE NEGATIVE (NEGATIVE); KETONES,URINE NEGATIVE (NEGATIVE); LEUKOCYTE ESTERASE ,URINE 2+ (NEGATIVE); NITRITE,URINE NEGATIVE (NEGATIVE); PH,URINE 5 (5-9); PROTEIN,URINE 2+ (NEGATIVE); UROBILINOGEN,URINE NORMAL (NORMAL)
[2017-02-24 23:21] LABS: YEAST,URINE MODERATE /HPF
[2017-02-25] MEDS ORDERED: cefTRIAXone INJECTION 1,000 MG in NS (IVPB) 50 ML IV ONE (00:30)
[2017-02-25] MEDS ORDERED: fentaNYL INJECTION 100 MCG/2 ML AMP IVP ONE (00:30)
[2017-02-25] MEDS ORDERED: NS IV 1000 ML 1,000 ML IV SCH (00:45)
[2017-02-25] MEDS ORDERED: ONDANSETRON 4 MG/2 ML (SDV) Z0FRAN IV PRN (02:45)
[2017-02-25] MEDS ORDERED: CATHETER FLUSH 10 ML SYR IV PRN (02:45)
[2017-02-25] MEDS: NS IV 1000 ML 1,000 ML IV SCH ×3 (03:00→19:00)
[2017-02-25 04:00] VITALS: BP 180/79
[2017-02-25 06:23] LABS: BASOPHILS % (AUTO) 0 % (0-10); EOSINOPHILS # (AUTO) 0.2 10^3/uL (0.0-0.3); EOSINOPHILS % (AUTO) 2 % (0-10); LYMPHOCYTES # (AUTO) 1.6 X 10^3 (1.0-4.0); LYMPHOCYTES % (AUTO) 18 % (12-44); MEAN CORPUSCULAR HEMOGLOBIN 27 PG (25-34); MEAN CORPUSCULAR HGB CONC 31 G/DL (32-36); MEAN CORPUSCULAR VOLUME 86 FL (80-99); MONOCYTES # (AUTO) 1.1 X 10^3 (0.0-1.0); MONOCYTES % (AUTO) 13 % (0-12); NEUTROPHILS # (AUTO) 5.8 X 10^3 (1.8-7.8); NEUTROPHILS % (AUTO) 67 % (42-75); PLATELET COUNT 479 10^3/uL (130-400); RED BLOOD COUNT 3.86 10^6/uL (4.35-5.85); RED CELL DISTRIBUTION WIDTH 18.6 % (10.0-14.5); WHITE BLOOD COUNT 8.7 10^3/uL (4.3-11.0)
[2017-02-25 06:44] LABS: ALANINE AMINOTRANSFERASE 14 U/L (0-55); ALBUMIN 2.9 GM/DL (3.2-4.5); ANION GAP 14 MMOL/L (5-14); ASPARTATE AMINO TRANSFERASE 22 U/L (5-34); BILIRUBIN,TOTAL 0.3 MG/DL (0.1-1.0); BLOOD UREA NITROGEN 9 MG/DL (7-18); BUN/CREATININE RATIO 10; CALCIUM 8.4 MG/DL (8.5-10.1); CARBON DIOXIDE 16 MMOL/L (21-32); CHLORIDE 110 MMOL/L (98-107); CREATININE SERUM 0.88 MG/DL (0.60-1.30); GFR ESTIMATED > 60; GLUCOSE 156 MG/DL (70-105); POTASSIUM 3.4 MMOL/L (3.6-5.0); SODIUM 140 MMOL/L (135-145); TOTAL PROTEIN 6.4 GM/DL (6.4-8.2)
[2017-02-25] MEDS: CATHETER FLUSH 10 ML SYR IV SCH ×3 (07:49→21:36)
[2017-02-25 07:51] VITALS: BP 180/79
[2017-02-25] MEDS ORDERED: KCL 10 MEQ TAB (MICRO K) PO NR (08:30)
[2017-02-25] MEDS ORDERED: MAGNESIUM 1 GM/100 ML IVPB 100 ML IV NR (08:30)
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
--- NOTE | 2017-02-25 08:41 | Diagnostic Imaging Report ---
EXAMINATION: Three views of the right knee and three views of the left knee. INDICATION: Fall. FINDINGS: RIGHT KNEE: There is a 7 mm calcific density projecting over the mid aspect of the right knee joint. This is also along vascular calcifications seen. The medial joint space is mildly narrowed. There are osteophytes seen. There is no joint effusion. LEFT KNEE: No fracture, dislocation, or radiopaque foreign body. There is moderate joint space narrowing in the medial compartment and osteophyte formation. No suprapatellar effusion. IMPRESSION: There is a 7 mm calcific density seen projecting over the mid knee joint area. This is favored to be an overlying popliteal artery calcification rather than an avulsion fracture from the tibial spine. Dictated by: Dictated on workstation # [id number]
--- NOTE | 2017-02-25 08:43 | Diagnostic Imaging Report ---
INDICATION: Fell. Left shoulder pain. FINDINGS: The left clavicle shows good alignment with the AC joint. There is marked degenerative hypertrophic disease. There are no fractures. The glenohumeral joint is in good alignment. IMPRESSION: Degenerative changes of the AC joint with no acute abnormalities. Dictated by: Dictated on workstation # [id number]
--- NOTE | 2017-02-25 08:44 | Diagnostic Imaging Report ---
INDICATION: Fall. Shoulder pain. FINDINGS: The portable AP chest shows the lungs to be well-aerated. No pneumothorax or pleural effusion. No rib fracture is demonstrated. The clavicles appear intact. The glenohumeral joints are in good alignment. IMPRESSION: Normal portable chest. Dictated by: Dictated on workstation # [id number]
--- NOTE | 2017-02-25 08:45 | Diagnostic Imaging Report ---
INDICATION: Fall. FINDINGS: The right hip shows normal articulation. There are no fractures present. Moderate degenerative changes are noted. There is some calcification over the greater trochanter suggesting some calcific bursitis. There is dense vascular calcification noted in the femoral artery. IMPRESSION: 1. No acute abnormality. 2. Degenerative changes of the hip as described. Dictated by: Dictated on workstation # [id number]
--- NOTE | 2017-02-25 08:51 | Diagnostic Imaging Report ---
PROCEDURE: CT head and CT cervical spine without contrast. TECHNIQUE: Multiple contiguous axial images were obtained through the brain and cervical spine without the use of intravenous contrast. Sagittal and coronal reformations through the cervical spine were then performed. INDICATION: Fall. FINDINGS: CT HEAD: There is no intracranial hemorrhage, edema, or mass effect. The brain parenchyma demonstrates periventricular and deep white hypodensities, compatible with chronic microvascular ischemic changes. There is no hydrocephalus. No extra-axial fluid collection is seen. The calvarium, paranasal sinuses, and orbits appear grossly unremarkable. CT CERVICAL SPINE: There is satisfactory alignment of the cervical spine at the posterior spinal line and at the facet joints. There is no widening of the predental space. The alignment of the lateral masses of C1 and C2 and the atlantooccipital joints appears unremarkable. Degenerative changes of the facet joints are seen. There are also anterior and minimal posterior osteophytes noted. No acute fracture is identified. IMPRESSION: CT HEAD: No intracranial hemorrhage. White matter findings are suggestive of chronic microvascular ischemic changes. CT CERVICAL SPINE: Degenerative changes. No fracture is seen. Dictated by: Dictated on workstation # [id number]
[2017-02-25] MEDS ORDERED: ESCI20TA45 PO (10:45)
[2017-02-25] MEDS ORDERED: MIRT15TA6 PO (10:45)
[2017-02-25] MEDS ORDERED: [UNRECOGNIZED DRUG - OTHER] TOP (10:48)
[2017-02-25 12:45] VITALS: BP 169/74
[2017-02-25] MEDS ORDERED: MILK OF MAGNESIA 400 MG/5 ML 30 ML UDC PO PRN (13:00)
[2017-02-25] MEDS ORDERED: clonazePAM 0.5 MG (KlonoPIN) TAB PO PRN (13:00)
[2017-02-25] MEDS ORDERED: ONDANSETRON 4 MG (ZOFRAN) ORAL DISSOLVE TAB PO PRN (13:00)
[2017-02-25] MEDS ORDERED: DOCUSATE SODIUM 100 MG (COLACE) CAP PO PRN (13:00)
[2017-02-25] MEDS ORDERED: guaiFENesin SYRUP 100 MG/5 ML 10 ML (ROBITUSSIN SF) PO PRN (13:00)
[2017-02-25] MEDS ORDERED: NUT TX IMPAIRED DIGEST FXN PO SCH (13:00)
[2017-02-25] MEDS ORDERED: RT-ALBUTEROL SULF 2.5 MG/3 ML PRE-MIX VIAL IH PRN (13:45)
[2017-02-25] MEDS ORDERED: GADOBUTROL 7.5 MMOL/7.5 ML (GADAVIST) VIAL IV ONE (14:45)
[2017-02-25] MEDS: NYSTATIN CREAM (MYCOSTATIN) 30 GM TUBE TP SCH ×2 (15:18→21:36)
--- NOTE | 2017-02-25 15:33 | Diagnostic Imaging Report ---
PROCEDURE: MR imaging of the brain with and without contrast. TECHNIQUE: Multiplanar, multisequence MR imaging of the brain was performed with and without contrast. INDICATION: Altered mental status. TECHNIQUE: 7 mL of Gadavist was administered intravenously. COMPARISON: MRI of 07/12/2012. FINDINGS: Please note that there is some motion artifact on multiple sequences which could obscure particularly subtle abnormalities. Evaluation for major abnormalities is reasonable. There is an enhancing 2.8 x 1.5 x 2.7 cm mass in the extra-axial space anteriorly along the right frontal region. This has avid enhancement and homogeneous low intensity on T1 and mild hyperintensity on T2 weighted images with a dural tail compatible with meningioma. It is mildly enlarged compared to previous measurements of 1.9 x 1.3 x 1.8 cm on MRI of 07/12/2012. The adjacent right frontal lobe anteriorly demonstrates mild mass effect from this mass and there is also suggestion of mild T2 and FLAIR signal abnormality. There is prominent periventricular, deep and subcortical white matter T2 hyperintense signal suggestive of chronic microvascular ischemic changes. There is no diffusion restriction to suggest an acute infarct or other diffusion abnormality. No enhancing intra-axial mass. The pituitary gland is normal in size. No hypothalamic or pineal region mass. 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 There is a chronic lacunar infarct in the brainstem which appears to be present in 2012. The central vascular flow-voids appear grossly unremarkable. The internal auditory canals and inner ear structures appear unremarkable. There is mild mucosal thickening in the ethmoid air cells. IMPRESSION: 1. There is a 2.8 cm extra-axial mass along the right frontal region suggestive of meningioma, demonstrating mild enlargement compared to 2012 exam. It has mild localized mass effect along the adjacent aspect of the right frontal lobe. 2. Chronic ischemic changes with no evidence of acute infarct. 3. Mild dilatation of ventricles out of proportion to the rest of the CSF spaces, could correlate with mild normal pressure hydrocephalus. Dictated by: Dictated on workstation # [id number]
[2017-02-25 15:47] VITALS: BP 157/69
[2017-02-25 19:34] VITALS: BP 132/62
[2017-02-25] MEDS: MENTHOL/ZINC OXIDE (CALMOSEPTINE) 113 GM TUBE TOP SCH (21:35)
[2017-02-25] MEDS: MAGNESIUM OXIDE (MAG-OX)400 MG TAB PO SCH ×2 (21:35→21:43)
[2017-02-25] MEDS: FAMOTIDINE 20 MG (PEPCID) TABLET PO SCH ×2 (21:35→21:43)
[2017-02-25] MEDS: KCL 10 MEQ TAB (MICRO K) PO SCH ×2 (21:35→21:43)
[2017-02-25] MEDS: ATORVASTATIN 40 MG (LIPITOR) TABLET PO SCH ×2 (21:35→21:43)
[2017-02-26 00:42] VITALS: BP 158/68
[2017-02-26 04:00] VITALS: BP 170/74
[2017-02-26] MEDS: CATHETER FLUSH 10 ML SYR IV SCH ×3 (06:14→20:49)
[2017-02-26] MEDS: MULTIVIT W/MINERALS TAB (THERAGRAN M) PO SCH (06:14)
[2017-02-26 07:30] VITALS: BP 185/73
[2017-02-26 07:59] LABS: BASOPHILS % (AUTO) 0 % (0-10); EOSINOPHILS # (AUTO) 0.3 10^3/uL (0.0-0.3); EOSINOPHILS % (AUTO) 4 % (0-10); LYMPHOCYTES # (AUTO) 1.6 X 10^3 (1.0-4.0); LYMPHOCYTES % (AUTO) 23 % (12-44); MEAN CORPUSCULAR HEMOGLOBIN 26 PG (25-34); MEAN CORPUSCULAR HGB CONC 31 G/DL (32-36); MEAN CORPUSCULAR VOLUME 87 FL (80-99); MEAN PLATELET VOLUME 10.6 FL (7.4-10.4); MONOCYTES # (AUTO) 0.8 X 10^3 (0.0-1.0); MONOCYTES % (AUTO) 11 % (0-12); NEUTROPHILS # (AUTO) 4.5 X 10^3 (1.8-7.8); NEUTROPHILS % (AUTO) 63 % (42-75); PLATELET COUNT 486 10^3/uL (130-400); RED BLOOD COUNT 3.33 10^6/uL (4.35-5.85); RED CELL DISTRIBUTION WIDTH 18.5 % (10.0-14.5); WHITE BLOOD COUNT 7.1 10^3/uL (4.3-11.0)
[2017-02-26 08:18] LABS: ANION GAP 8 MMOL/L (5-14); BLOOD UREA NITROGEN 6 MG/DL (7-18); BUN/CREATININE RATIO 8; CALCIUM 8.4 MG/DL (8.5-10.1); CARBON DIOXIDE 22 MMOL/L (21-32); CHLORIDE 111 MMOL/L (98-107); CREATININE SERUM 0.72 MG/DL (0.60-1.30); GFR ESTIMATED > 60; GLUCOSE 133 MG/DL (70-105); MAGNESIUM 1.4 MG/DL (1.8-2.4); POTASSIUM 3.3 MMOL/L (3.6-5.0); SODIUM 141 MMOL/L (135-145)
--- NOTE | 2017-02-26 08:27 | Progress Note (SOAP) ---
Subjective Time Seen by Provider: 08:20 Subjective/Events-last exam altered mental status. UTI. fall Patient more alert today. Hypertension but not taking her medicine refusing it. Patient looks better today. C. difficile Urine culture negative Objective Exam Vital Signs Date Time Temp Pulse Resp B/P (MAP) Pulse Ox O2 Delivery O2 Flow Rate FiO2 02/26/17 07:30 97.3 86 20 185/73 99 Room Air 02/26/17 04:00 97.6 87 18 170/74 95 Room Air 02/26/17 00:42 98.2 85 18 158/68 93 Room Air 02/25/17 19:34 98.0 75 20 132/62 96 Room Air 02/25/17 15:47 98.4 89 18 157/69 99 Room Air 02/25/17 12:45 98.9 89 20 169/74 97 I & O 02/26/17 07:00 Intake Total 2375 ml Balance 2375 ml Capillary Refill : Less Than 3 Seconds General Appearance: No Apparent Distress HEENT: Normal ENT Inspection Neck: Full Range of Motion, Normal Inspection Respiratory: Chest Non Tender, Lungs Clear, No Accessory Muscle Use, No Respiratory Distress Cardiovascular: Regular Rate, Rhythm, No Murmur Gastrointestinal: non tender, soft Results Lab Laboratory Tests 02/26/17 07:52 Laboratory Tests 02/26/17 07:52: White Blood Count 7.1, Red Blood Count 3.33L, Hemoglobin 8.8L, Hematocrit 29L, Mean Corpuscular Volume 87, Mean Corpuscular Hemoglobin 26, Mean Corpuscular Hemoglobin Concent 31L, Red Cell Distribution Width 18.5H, Platelet Count 486H, Mean Platelet Volume 10.6H, Neutrophils (%) (Auto) 63, Lymphocytes (%) (Auto) 23 , Monocytes (%) (Auto) 11, Eosinophils (%) (Auto) 4, Basophils (%) (Auto) 0, Neutrophils # (Auto) 4.5, Lymphocytes # (Auto) 1.6, Monocytes # (Auto) 0.8, Eosinophils # (Auto) 0.3, Basophils # (Auto) 0.0, Sodium Level 141, Potassium Level 3.3L, Chloride Level 111H, Carbon Dioxide Level 22, Anion Gap 8, Blood Urea Nitrogen 6L, Creatinine 0.72, Estimat Glomerular Filtration Rate > 60, BUN/ Creatinine Ratio 8, Glucose Level 133H, Calcium Level 8.4L, Magnesium Level 1.4L Microbiology 02/24/17 Urine Culture - Preliminary, Resulted NO GROWTH Assessment/Plan Assessment/Plan Assess & Plan/Chief Complaint fall. Altered mental status resolving . C. difficile. Urine culture negative. Hypertension refusing medications. Patient looks better today. Meningioma on MRI slightly enlarged from 2012 Clinical Quality Measures DVT/VTE Risk/Contraindication: Risk Factor Score Per Nursin RFS Level Per Nursing on Admit: 4+=Very High THOMAS CLAIRE DO Feb 26, 2017 08:27
[2017-02-26] MEDS ORDERED: PROTEIN SUPPLEMENT PO SCH (09:00)
[2017-02-26] MEDS: CLOPIDOGREL 75 MG (PLAVIX) TABLET PO SCH (10:15)
[2017-02-26] MEDS: FERROUS SULF 325 MG (IRON) TAB PO SCH (10:16)
[2017-02-26] MEDS: ACETAMINOPHEN 500 MG TAB (TYLENOL) PO PRN (10:16)
[2017-02-26] MEDS: KCL 10 MEQ TAB (MICRO K) PO SCH ×2 (10:17→20:48)
[2017-02-26] MEDS: FAMOTIDINE 20 MG (PEPCID) TABLET PO SCH ×2 (10:17→20:48)
[2017-02-26] MEDS: amLODIPine 5 MG (NORVASC) TAB PO SCH (10:17)
[2017-02-26] MEDS: MAGNESIUM OXIDE (MAG-OX)400 MG TAB PO SCH ×2 (10:17→20:48)
[2017-02-26] MEDS: NYSTATIN CREAM (MYCOSTATIN) 30 GM TUBE TP SCH ×3 (10:18→20:49)
[2017-02-26] MEDS: MENTHOL/ZINC OXIDE (CALMOSEPTINE) 113 GM TUBE TOP SCH ×2 (10:19→20:48)
[2017-02-26 12:00] VITALS: BP 143/63
[2017-02-26] MEDS ORDERED: VANCOMYCIN ORAL SUSPENSION 60 ML BOTTLE PO SCH (13:15)
[2017-02-26] MEDS: NS IV 1000 ML 1,000 ML IV SCH ×2 (13:24→18:51)
[2017-02-26] MEDS: VANCOMYCIN ORAL 250 MG/5 ML 60 ML PO SCH ×4 (13:54→19:35)
[2017-02-26 16:00] VITALS: BP 123/59
[2017-02-26 20:00] VITALS: BP 142/65
[2017-02-26] MEDS: ATORVASTATIN 40 MG (LIPITOR) TABLET PO SCH (20:48)
[2017-02-27] VITALS: BP 121/60
[2017-02-27] MEDS: VANCOMYCIN ORAL 250 MG/5 ML 60 ML PO SCH ×8 (01:05→11:33)
[2017-02-27 04:00] VITALS: BP 145/67
[2017-02-27] MEDS: MULTIVIT W/MINERALS TAB (THERAGRAN M) PO SCH ×2 (07:00→07:33)
--- NOTE | 2017-02-27 07:25 | Progress Note (SOAP) ---
Subjective Time Seen by Provider: 07:20 Subjective/Events-last exam patient doing better today. Patient still confused. 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 Patient does not know the year or day. Patient does not know what 10- 2 equals. MRI of the head shows meningioma. Fall. Patient put on vancomycin for C. difficile. Diabetes. Altered mental status. Patient needs to be seen by neurosurgeon. Patient stable. Plan to discharge patient today Objective Exam Vital Signs Date Time Temp Pulse Resp B/P (MAP) Pulse Ox O2 Delivery O2 Flow Rate FiO2 02/27/17 04:00 97.7 82 18 145/67 99 Room Air 02/27/17 00:05 97.5 02/27/17 00:00 96.5 79 20 121/60 96 Room Air 02/26/17 20:00 98.0 81 18 142/65 97 Room Air 02/26/17 16:00 98.4 87 18 123/59 97 Room Air 02/26/17 12:00 97.0 85 18 143/63 95 Room Air 02/26/17 07:30 97.3 86 20 185/73 99 Room Air I & O 02/27/17 07:00 Intake Total 560 ml Balance 560 ml Capillary Refill : Less Than 3 Seconds General Appearance: No Apparent Distress, WD/WN HEENT: Normal ENT Inspection Neck: Full Range of Motion, Normal Inspection Respiratory: Chest Non Tender, Lungs Clear, Normal Breath Sounds, No Accessory Muscle Use, No Respiratory Distress Cardiovascular: Regular Rate, Rhythm, No Murmur Gastrointestinal: non tender, soft Results Lab Laboratory Tests 02/26/17 07:52 Laboratory Tests 02/26/17 07:52: White Blood Count 7.1, Red Blood Count 3.33L, Hemoglobin 8.8L, Hematocrit 29L, Mean Corpuscular Volume 87, Mean Corpuscular Hemoglobin 26, Mean Corpuscular Hemoglobin Concent 31L, Red Cell Distribution Width 18.5H, Platelet Count 486H, Mean Platelet Volume 10.6H, Neutrophils (%) (Auto) 63, Lymphocytes (%) (Auto) 23 , Monocytes (%) (Auto) 11, Eosinophils (%) (Auto) 4, Basophils (%) (Auto) 0, Neutrophils # (Auto) 4.5, Lymphocytes # (Auto) 1.6, Monocytes # (Auto) 0.8, Eosinophils # (Auto) 0.3, Basophils # (Auto) 0.0, Sodium Level 141, Potassium Level 3.3L, Chloride Level 111H, Carbon Dioxide Level 22, Anion Gap 8, Blood Urea Nitrogen 6L, Creatinine 0.72, Estimat Glomerular Filtration Rate > 60, BUN/ Creatinine Ratio 8, Glucose Level 133H, Calcium Level 8.4L, Magnesium Level 1.4L Microbiology 02/25/17 C. difficile [facility] Antigen & Toxins - Final, Complete 02/24/17 Urine Culture - Final, Complete Assessment/Plan Assessment/Plan Assess & Plan/Chief Complaint fall. Altered mental status resolving . C. difficile. Urine culture negative. Hypertension refusing medications. Patient looks better today. Meningioma on MRI slightly enlarged from 2011. . 02/27/17. 4. MENTAL status. Meningioma and brain. C. difficile. Urine culture negative. Hypertension. Patient stable. Altered mental status. Plan to discharge today. Plan to have patient be seen by neurosurgeon Clinical Quality Measures DVT/VTE Risk/Contraindication: Risk Factor Score Per Nursin RFS Level Per Nursing on Admit: 4+=Very High THOMAS CLAIRE DO Feb 27, 2017 07:25
[2017-02-27] MEDS: CATHETER FLUSH 10 ML SYR IV SCH (07:33)
[2017-02-27 08:00] VITALS: BP 177/76
[2017-02-27 08:07] LABS: MEAN PLATELET VOLUME 10.3 FL (7.4-10.4); RED BLOOD COUNT 3.59 10^6/uL (4.35-5.85); RED CELL DISTRIBUTION WIDTH 18.1 % (10.0-14.5); WHITE BLOOD COUNT 5.1 10^3/uL (4.3-11.0)
[2017-02-27 08:24] LABS: ALANINE AMINOTRANSFERASE 14 U/L (0-55); ALBUMIN 2.6 GM/DL (3.2-4.5); ANION GAP 11 MMOL/L (5-14); ASPARTATE AMINO TRANSFERASE 16 U/L (5-34); BILIRUBIN,TOTAL 0.3 MG/DL (0.1-1.0); BLOOD UREA NITROGEN 5 MG/DL (7-18); BUN/CREATININE RATIO 8; CALCIUM 8.3 MG/DL (8.5-10.1); CARBON DIOXIDE 19 MMOL/L (21-32); CHLORIDE 111 MMOL/L (98-107); CREATININE SERUM 0.66 MG/DL (0.60-1.30); GFR ESTIMATED > 60; GLUCOSE 106 MG/DL (70-105); POTASSIUM 3.3 MMOL/L (3.6-5.0); SODIUM 141 MMOL/L (135-145); TOTAL PROTEIN 5.9 GM/DL (6.4-8.2)
[2017-02-27] MEDS: NS IV 1000 ML 1,000 ML IV SCH (08:46)
[2017-02-27] MEDS: FAMOTIDINE 20 MG (PEPCID) TABLET PO SCH (09:03)
[2017-02-27] MEDS: amLODIPine 5 MG (NORVASC) TAB PO SCH (09:03)
[2017-02-27] MEDS: ACETAMINOPHEN 500 MG TAB (TYLENOL) PO PRN (09:04)
[2017-02-27] MEDS: MAGNESIUM OXIDE (MAG-OX)400 MG TAB PO SCH (09:04)
[2017-02-27] MEDS: FERROUS SULF 325 MG (IRON) TAB PO SCH (09:04)
[2017-02-27] MEDS: CLOPIDOGREL 75 MG (PLAVIX) TABLET PO SCH (09:04)
[2017-02-27] MEDS: KCL 10 MEQ TAB (MICRO K) PO SCH (09:04)
[2017-02-27] MEDS: MENTHOL/ZINC OXIDE (CALMOSEPTINE) 113 GM TUBE TOP SCH (09:05)
[2017-02-27] MEDS: NYSTATIN CREAM (MYCOSTATIN) 30 GM TUBE TP SCH ×2 (09:05→11:33)
[2017-02-27] MEDS ORDERED: VANC125S PO (11:27)
[2017-02-27 12:50] VITALS: BP 177/76
--- NOTE | 2017-02-28 15:35 | Physician Query-Final Dx ---
Final Diagnosis Give Final Diagnosis Please give Final Diagnosis EMILY FUNK Feb 28, 2017 15:35
== END 2017-02-27 11:16 ==
LOC: EDUNIT# 21:13 → ER 21:14 → 4TH 02-25 00:41 → UNDOADMOB 02-25 00:41 → 4TH 02-25 02:05
PROVIDERS: ADMIT Family Medicine; ATTEND Family Medicine
DX: A41.9 Sepsis, unspecified organism (principal); N39.0 Urinary tract infection, site not specified; E87.6 Hypokalemia; E83.42 Hypomagnesemia; E11.9 Type 2 diabetes mellitus without complications; S29.9XXA Unspecified injury of thorax, initial encounter; S89.91XA Unspecified injury of right lower leg, initial encounter; S89.92XA Unspecified injury of left lower leg, initial encounter; I10 Essential (primary) hypertension; J44.9 Chronic obstructive pulmonary disease, unspecified; I25.10 Atherosclerotic heart disease of native coronary artery without angina pectoris; M16.11 Unilateral primary osteoarthritis, right hip; M47.812 Spondylosis without myelopathy or radiculopathy, cervical region; F17.210 Nicotine dependence, cigarettes, uncomplicated; Z79.02 Long term (current) use of antithrombotics/antiplatelets; Z79.899 Other long term (current) drug therapy; W01.0XXA Fall on same level from slipping, tripping and stumbling without subsequent striking against object, initial encounter; Y92.129 Unspecified place in nursing home as the place of occurrence of the external cause; Y99.8 Other external cause status
CPT/HCPCS: 36415; 70450; 70553; 71010; 72125; 73000; 73502; 80048; 80053; 81000; 82140; 83605; 83735; 84484; 85025; 85027; 86141; 87088; 87324; 87449; 96361; 96365; 96366; 96367; 96375; G0378

== ENCOUNTER → 2017-04-29 | Outpatient (CLI) | payer MEDICARE, MEDICAID ==
[~2017-04-29] MED LIST changes: +ESCI20TA45 PO; +MIRT15TA6 PO; +VANC125S PO; +[UNRECOGNIZED DRUG - OTHER] TOP
== END ==
LOC: WOUNDCARE 09:25
PROVIDERS: ATTEND Nurse Practitioner
DX: E11.621 Type 2 diabetes mellitus with foot ulcer (principal); L89.619 Pressure ulcer of right heel, unspecified stage; L89.629 Pressure ulcer of left heel, unspecified stage; L89.153 Pressure ulcer of sacral region, stage 3
CPT/HCPCS: 11042; 11045

== ENCOUNTER → 2017-05-06 | Outpatient (CLI) | payer MEDICARE, MEDICAID | LOC: WOUNDCARE 11:37 | PROVIDERS: ATTEND Nurse Practitioner | DX: E11.621 Type 2 diabetes mellitus with foot ulcer (principal); L89.619 Pressure ulcer of right heel, unspecified stage; L89.629 Pressure ulcer of left heel, unspecified stage; L89.153 Pressure ulcer of sacral region, stage 3 | CPT/HCPCS: 97597 ==

== ENCOUNTER → 2017-05-13 | Outpatient (CLI) | payer MEDICARE, MEDICAID | LOC: WOUNDCARE 11:38 | PROVIDERS: ATTEND Nurse Practitioner | DX: E11.621 Type 2 diabetes mellitus with foot ulcer (principal); L89.619 Pressure ulcer of right heel, unspecified stage; L89.629 Pressure ulcer of left heel, unspecified stage; L89.153 Pressure ulcer of sacral region, stage 3 | CPT/HCPCS: 99212 ==

== ENCOUNTER → 2017-05-20 | Outpatient (CLI) | payer MEDICARE, MEDICAID | LOC: WOUNDCARE 11:35 | PROVIDERS: ATTEND Nurse Practitioner | DX: E11.621 Type 2 diabetes mellitus with foot ulcer (principal); L89.629 Pressure ulcer of left heel, unspecified stage; L89.153 Pressure ulcer of sacral region, stage 3; L89.619 Pressure ulcer of right heel, unspecified stage | CPT/HCPCS: 11042 ==

== ENCOUNTER → 2017-05-27 | Outpatient (CLI) | payer MEDICARE, MEDICAID ==
--- NOTE | 2017-05-27 11:25 | Diagnostic Imaging Report ---
EXAMINATION: Upper and lower extremity pressure measurements of ankle/brachial index and pulse volume recording at the ankle. INDICATION: Claudication FINDINGS: The ankle/brachial index on the right side is 0.38, (.38 PT, and undetectable DP) and on the left is 0.36 (0.36 PT, and undetectable DP). Pulse volume recording waveforms dampened amplitude of moderate degree bilaterally. IMPRESSION: Findings suggestive of severe peripheral arterial disease. Dictated by: Dictated on workstation # [id number]
== END ==
LOC: RAD 10:10
PROVIDERS: ATTEND Surgery
DX: I73.9 Peripheral vascular disease, unspecified (principal); L97.409 Non-pressure chronic ulcer of unspecified heel and midfoot with unspecified severity
CPT/HCPCS: 93922

== ENCOUNTER → 2017-05-27 | Outpatient (CLI) | payer MEDICARE, MEDICAID | LOC: WOUNDCARE 10:58 | PROVIDERS: ATTEND Nurse Practitioner | DX: E11.621 Type 2 diabetes mellitus with foot ulcer (principal); L89.619 Pressure ulcer of right heel, unspecified stage; L89.629 Pressure ulcer of left heel, unspecified stage; L89.153 Pressure ulcer of sacral region, stage 3 | CPT/HCPCS: 99212 ==

== ENCOUNTER → 2017-07-01 | Outpatient (CLI) | payer MEDICARE, MEDICAID ==
[~2017-07-01] MED LIST changes: +QUIN20TA16 PO; -QUIN20TA27 PO
== END ==
LOC: WOUNDCARE 11:45
PROVIDERS: ATTEND Nurse Practitioner
DX: E11.621 Type 2 diabetes mellitus with foot ulcer (principal); L89.619 Pressure ulcer of right heel, unspecified stage; L89.629 Pressure ulcer of left heel, unspecified stage; L89.153 Pressure ulcer of sacral region, stage 3
CPT/HCPCS: 97597

== ENCOUNTER → 2017-07-12 | Outpatient (CLI) | payer MEDICARE, MEDICAID ==
[2017-07-12 07:39] LABS: BASOPHILS % (AUTO) 0 % (0-10); EOSINOPHILS # (AUTO) 0.6 10^3/uL (0.0-0.3); EOSINOPHILS % (AUTO) 4 % (0-10); LYMPHOCYTES # (AUTO) 2.9 X 10^3 (1.0-4.0); LYMPHOCYTES % (AUTO) 20 % (12-44); MEAN CORPUSCULAR HEMOGLOBIN 28 PG (25-34); MEAN CORPUSCULAR HGB CONC 31 G/DL (32-36); MEAN CORPUSCULAR VOLUME 89 FL (80-99); MEAN PLATELET VOLUME 10.5 FL (7.4-10.4); MONOCYTES # (AUTO) 1.1 X 10^3 (0.0-1.0); MONOCYTES % (AUTO) 8 % (0-12); NEUTROPHILS % (AUTO) 69 % (42-75); PLATELET COUNT 506 10^3/uL (130-400); RED BLOOD COUNT 3.72 10^6/uL (4.35-5.85); RED CELL DISTRIBUTION WIDTH 15.2 % (10.0-14.5); WHITE BLOOD COUNT 14.6 10^3/uL (4.3-11.0)
[2017-07-12 07:59] LABS: ALBUMIN 2.9 GM/DL (3.2-4.5); ANISOCYTOSIS SLIGHT; BAND NEUTROPHILS 7 %; BASOPHILS % (MANUAL) 0 %; BILIRUBIN,TOTAL 0.2 MG/DL (0.1-1.0); CALCIUM 8.7 MG/DL (8.5-10.1); CREATININE SERUM 1.31 MG/DL (0.60-1.30); EOSINOPHILS % (MANUAL) 3 %; LYMPHOCYTES % (MANUAL) 19 %; NEUTROPHILS % (MANUAL) 62 %; POTASSIUM 3.5 MMOL/L (3.6-5.0); TOTAL PROTEIN 5.7 GM/DL (6.4-8.2)
== END ==
LOC: LABNPT 06:00
PROVIDERS: ATTEND Family Medicine
DX: E86.0 Dehydration (principal)
CPT/HCPCS: 36415; 80053; 85007; 85027

== ENCOUNTER → 2017-07-15 | Outpatient (CLI) | payer MEDICARE, MEDICAID | LOC: WOUNDCARE 09:57 | PROVIDERS: ATTEND Nurse Practitioner | DX: E11.621 Type 2 diabetes mellitus with foot ulcer (principal); L89.619 Pressure ulcer of right heel, unspecified stage; L89.153 Pressure ulcer of sacral region, stage 3; A04.71 Enterocolitis due to Clostridium difficile, recurrent | CPT/HCPCS: 11042 ==

== ENCOUNTER → 2017-07-24 | Outpatient (CLI) | payer MEDICARE, MEDICAID | LOC: WOUNDCARE 12:35 | PROVIDERS: ATTEND Nurse Practitioner | DX: L89.619 Pressure ulcer of right heel, unspecified stage (principal); E11.621 Type 2 diabetes mellitus with foot ulcer; L89.153 Pressure ulcer of sacral region, stage 3; A04.71 Enterocolitis due to Clostridium difficile, recurrent | CPT/HCPCS: 11042 ==

== ENCOUNTER → 2017-08-05 | Outpatient (CLI) | payer MEDICARE, MEDICAID | LOC: WOUNDCARE 10:36 | PROVIDERS: ATTEND Nurse Practitioner | DX: L89.619 Pressure ulcer of right heel, unspecified stage (principal); E11.621 Type 2 diabetes mellitus with foot ulcer; L89.153 Pressure ulcer of sacral region, stage 3; A04.71 Enterocolitis due to Clostridium difficile, recurrent | CPT/HCPCS: 11042 ==

== ENCOUNTER → 2017-08-19 | Outpatient (CLI) | payer MEDICARE, MEDICAID | LOC: WOUNDCARE 09:54 | PROVIDERS: ATTEND Nurse Practitioner | DX: E11.621 Type 2 diabetes mellitus with foot ulcer (principal); L89.619 Pressure ulcer of right heel, unspecified stage; L89.153 Pressure ulcer of sacral region, stage 3; A04.71 Enterocolitis due to Clostridium difficile, recurrent | CPT/HCPCS: 97597 ==

== ENCOUNTER → 2017-08-28 | Outpatient (CLI) | payer MEDICARE, MEDICAID ==
--- NOTE | 2017-08-28 16:33 | Diagnostic Imaging Report ---
INDICATION: Heel ulcer. TIME OF EXAM: 2:09 p.m. FINDINGS: Two views of the calcaneus were obtained. There is a large plantar calcaneal spur. No definite bony destructive changes are seen. No soft tissue gas is identified. IMPRESSION: No bony destruction is identified. If there is concern for osteomyelitis, MRI could be performed for further evaluation. Dictated by: Dictated on workstation # [id number]
== END ==
LOC: RAD 13:37
PROVIDERS: ATTEND Nurse Practitioner
DX: L89.619 Pressure ulcer of right heel, unspecified stage (principal)
CPT/HCPCS: 73650

== ENCOUNTER → 2017-08-28 | Outpatient (CLI) | payer MEDICARE, MEDICAID | LOC: WOUNDCARE 12:32 | PROVIDERS: ATTEND Nurse Practitioner | DX: E11.621 Type 2 diabetes mellitus with foot ulcer (principal); L89.619 Pressure ulcer of right heel, unspecified stage; L89.153 Pressure ulcer of sacral region, stage 3; A04.71 Enterocolitis due to Clostridium difficile, recurrent | CPT/HCPCS: 97597 ==

== ENCOUNTER → 2017-09-11 | Outpatient (CLI) | payer MEDICARE, MEDICAID | LOC: WOUNDCARE 12:32 | PROVIDERS: ATTEND Nurse Practitioner | DX: E11.621 Type 2 diabetes mellitus with foot ulcer (principal); L89.619 Pressure ulcer of right heel, unspecified stage; L89.153 Pressure ulcer of sacral region, stage 3; A04.71 Enterocolitis due to Clostridium difficile, recurrent | CPT/HCPCS: 99213 ==

== ENCOUNTER → 2017-09-25 | Outpatient (CLI) | payer MEDICARE, MEDICAID ==
[~2017-09-25] MED LIST changes: -SCOP1PAT TD; +SCOP1PAT11 TD
== END ==
LOC: WOUNDCARE 12:18
PROVIDERS: ATTEND Nurse Practitioner
DX: E11.621 Type 2 diabetes mellitus with foot ulcer (principal); L89.619 Pressure ulcer of right heel, unspecified stage; L89.153 Pressure ulcer of sacral region, stage 3

== ENCOUNTER → 2017-10-16 | Outpatient (CLI) | payer MEDICARE, MEDICAID | LOC: WOUNDCARE 12:26 | PROVIDERS: ATTEND Nurse Practitioner | DX: E11.621 Type 2 diabetes mellitus with foot ulcer (principal); L89.619 Pressure ulcer of right heel, unspecified stage; L89.153 Pressure ulcer of sacral region, stage 3; A04.71 Enterocolitis due to Clostridium difficile, recurrent | CPT/HCPCS: 99213 ==

== ENCOUNTER → 2017-11-06 | Outpatient (CLI) | payer MEDICARE, MEDICAID | LOC: WOUNDCARE 12:37 | PROVIDERS: ATTEND Nurse Practitioner | DX: E11.621 Type 2 diabetes mellitus with foot ulcer (principal); L89.619 Pressure ulcer of right heel, unspecified stage; L89.153 Pressure ulcer of sacral region, stage 3; A04.71 Enterocolitis due to Clostridium difficile, recurrent | CPT/HCPCS: 99212 ==

== ENCOUNTER 2018-02-02 21:33 | Emergency (ER) | payer MEDICARE, MEDICAID ==
[~2018-02-02] VITALS: Ht 154.9 cm; Wt 78.1 kg
[~2018-02-02 21:33] MED LIST changes: +CLON0.5T13 PO; -CLON0.5T3 PO; -METF500T4 PO; +METF500T5 PO
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
[2018-02-03] MEDS ORDERED: ACETAMINOPHEN 500 MG TAB (TYLENOL) ONE (00:48)
[2018-02-03 00:53] VITALS: BP 193/82
[2018-02-03] MEDS ORDERED: ACETAMINOPHEN 500 MG TAB (TYLENOL) PO ONE (01:00)
--- NOTE | 2018-02-03 06:04 | Diagnostic Imaging Report ---
INDICATION: Left ankle pain status post fall COMPARISON: None. FINDINGS: 3 views of the left ankle were obtained. There is no acute fracture or dislocation. No focal osseous lesions are seen. The surrounding soft tissue structures are unremarkable. There are no radiopaque foreign bodies. Note is made of generalized soft tissue edema. IMPRESSION: 1. No acute fracture or dislocation in the left ankle. 2. Generalized soft tissue edema. Dictated by: Dictated on workstation # [id number]
--- NOTE | 2018-02-03 06:46 | Diagnostic Imaging Report ---
PROCEDURE: CT head, face, and cervical spine without contrast. TECHNIQUE: Multiple contiguous axial images were obtained through the head, neck, and facial bones without the use of intravenous contrast. Sagittal and coronal reformations through the cervical spine and facial bones were also performed. INDICATION: Fall. Right-sided forehead hematoma. COMPARISON: 02/24/2017 FINDINGS: CT head: The ventricles and cortical sulci are diffusely prominent, compatible with age-related volume loss. There are confluent areas of abnormal, low attenuation in the periventricular white matter. This is consistent with chronic small vessel ischemic changes. There is no midline shift or mass-effect. No acute intra-axial hemorrhage is seen. There are no abnormal areas of increased or decreased density to suggest acute hemorrhage or edema. No extra-axial masses or collections are present. Moderate-sized soft tissue hematoma is noted overlying the anterior right frontal calvarium. The underlying bony calvarium is intact. CT facial bones:. Mildly displaced bilateral nasal bone fractures are identified. These, however, are age indeterminate. Note is made of similar position of the nasal bones on previous CT head dated 02/06/2017. Evaluation of fine bony detail on that exam, however, suboptimal secondary to routine CT head technique. No other acute appearing osseous abnormalities of the facial bones are identified. There is no other evidence of acute fracture or dislocation. Zygomatic arches are intact. Medial and lateral pterygoid plates are intact as well. There is no fracture or dislocation of the mandible. There is no fracture of the alveolar ridge of the maxilla. Paranasal sinuses are clear. There is no significant mucosal thickening or abnormal air-fluid level. There is no CT evidence of acute fracture of the paranasal sinuses. Nasal septum is essentially midline. There is no fracture of the orbits. Supraorbital soft tissue swelling is again noted on the right. No unexpected radiopaque foreign bodies are seen. Globes are symmetric. CT cervical spine: Static alignment of the cervical spine is maintained. There is no significant anteroretrolisthesis. There is no evidence of jumped facets. Vertebral body heights are maintained as well. There is no evidence of acute fracture of the cervical spine. There are moderate multilevel degenerative changes consisting of intervertebral disc height loss as well as multilevel facet arthropathy. Pre-and paravertebral soft tissue structures are unremarkable. Note is made of bilateral calcified carotid atherosclerosis. Included portions of the lung apices are clear. IMPRESSION: 1. No acute intracranial abnormality. No CT evidence of mass, acute infarct or intracranial hemorrhage. 2. Chronic small vessel ischemic changes in the deep white matter. 3. Minimally displaced bilateral nasal bone fracture; age-indeterminate. 3. Moderate soft tissue swelling overlying the anterior right calvarium. No evidence of underlying calvarial fracture. 5. No CT evidence of acute fracture or dislocation of the cervical spine. Dictated by: Dictated on workstation # [id number]
== END 2018-02-03 00:53 | disposition home or self-care (01) ==
LOC: EDUNIT# 21:33 → ER 21:34
DX: S02.2XXA Fracture of nasal bones, initial encounter for closed fracture (principal); S00.81XA Abrasion of other part of head, initial encounter; M25.572 Pain in left ankle and joints of left foot; I25.10 Atherosclerotic heart disease of native coronary artery without angina pectoris; E78.00 Pure hypercholesterolemia, unspecified; I10 Essential (primary) hypertension; J44.9 Chronic obstructive pulmonary disease, unspecified; E11.9 Type 2 diabetes mellitus without complications; F32.9 Major depressive disorder, single episode, unspecified; Z87.59 Personal history of other complications of pregnancy, childbirth and the puerperium; Z86.73 Personal history of transient ischemic attack (TIA), and cerebral infarction without residual deficits; Z88.0 Allergy status to penicillin; Z88.5 Allergy status to narcotic agent; Z79.02 Long term (current) use of antithrombotics/antiplatelets; V00.811A Fall from moving wheelchair (powered), initial encounter
CPT/HCPCS: 70450; 70486; 72125; 73610

== ENCOUNTER 2018-04-29 16:13 | Inpatient (IN) | payer MEDICARE, MEDICAID ==
[~2018-04-29] VITALS: Ht 167.6 cm; Wt 91.6 kg
[~2018-04-29 16:13] MED LIST changes: -AMLO5TAB2 PO; +AMLO5TAB7 PO; +METF-397 PO; -METF500T5 PO
[2018-04-29] MEDS ORDERED: CEFEPIME INJECTION 1,000 MG in NS (IVPB) 50 ML IV ONE (16:30)
[2018-04-29] MEDS ORDERED: NS IV 1000 ML 2,000 ML IV ONE (16:30)
--- NOTE | 2018-04-29 16:40 | ED General ---
General Chief Complaint: Altered Mental Status Stated Complaint: POSS STROKE Source of Information: Patient, EMS, [facility] Records Exam Limitations: No Limitations History of Present Illness Date Seen by Provider: Apr 29, 2018 Time Seen by Provider: 16:23 Initial Comments Patient presents to the ER by EMS from the [facility] with chief complaint per staff. She was not acting herself for the past day not talking lethargic, somnolent. The patient is diabetic but no blood sugar was reported and EMS glucometer apparently batteries broke on route. The patient would nod yes or no answer questions but was not able to speak. Appeared to Be very dry on initial exam per EMS so they started a liter of saline. EMS reported a fever as well as staff around 101. No mention of any NSAIDs or Tylenol. History of chronic kidney disease, diabetes, anemia known to Dr. Claire. According to records were faxed ahead of time looks like her creatinine has ranged from 1.1- 1.6 over the past couple months. Patient also is being treated outpatient with vancomycin oral for a history of C. difficile colitis. No mention of diarrhea per staff today. Allergies and Home Medications Allergies Coded Allergies: morphine (Unverified Allergy, Mild, 11/08/13) "ACTS WEIRD" Penicillins (Unverified Allergy, Unknown, 02/02/08) Home Medications Albuterol Sulfate 18 Gm Hfa.aer.ad, 2 PUFF IH Q8H PRN for SHORTNESS OF BREATH, ( Reported) Amlodipine Besylate 5 Mg Tablet, 5 MG PO DAILY, (Reported) Atorvastatin Calcium 40 Mg Tablet, 40 MG PO HS, (Reported) Clonazepam 0.5 Mg Tab.rapdis, 0.5 MG PO Q12H PRN for ANXIETY, (Reported) Clopidogrel Bisulfate 75 Mg Tablet, 75 MG PO DAILY, (Reported) Diphenhydramine HCl 25 Mg Capsule, 25 MG PO Q8H PRN for ITCHING, (Reported) Docusate Sodium 100 Mg Capsule, 100 MG PO Q12H PRN for CONSTIPATION-1ST LINE, ( Reported) Escitalopram Oxalate 20 Mg Tablet, 20 MG PO DAILY, (Reported) Famotidine 20 Mg Tablet, 20 MG PO BID, (Reported) Ferrous Sulfate 325 Mg Tablet, 325 MG PO DAILY, (Reported) Magnesium Hydroxide 400 Mg/5 Ml Oral.susp, 30 ML PO Q12H PRN for CONSTIPATION- 7TH LINE, (Reported) Magnesium Oxide 400 Mg Tablet, 400 MG PO BID, (Reported) Menthol/Camphor 56 Gm Cream..g., TP Q6H PRN for JOINT PAIN, (Reported) Mirtazapine 15 Mg Tablet, 15 MG PO HS, (Reported) Multivits,Stress Formula/Zinc 1 Each Tablet, 1 TAB PO DAILY, (Reported) Nut.tx.impaired Digest Fxn 200 Ml Liquid, 200 ML PO TID, (Reported) Nystatin/Triamcinolone 15 Gm Cr, TP TID, (Reported) Ondansetron HCl 4 Mg Tab, 4 MG PO Q6H PRN for NAUSEA/VOMITING-1ST LINE, ( Reported) Potassium Chloride 10 Meq Tablet.er, 10 MEQ PO BID, (Reported) Protein Supplement 946 Ml Liquid, 30 ML PO DAILY, (Reported) Tramadol HCl 50 Mg Tablet, 50 MG PO Q12H PRN for PAIN-MODERATE, (Reported) Vancomycin HCl 125 Mg/2.5 Ml Syringe, 125 MG PO Q6H Prescribed by: ARNOLDO SANCHEZ on 02/27/17 1127 [Barrier Cream] , TOP BID, (Reported) APPLY TO BILATERAL BUTTOCKS FOR PREVENTATIVE MEASURES Patient Home Medication List Home Medication List Reviewed: Yes Review of Systems Review of Systems Constitutional: see HPI (patient is unable to give any meaningful review of systems.) Past Fqvdtfu-Hjdfga-Jietjy Hx Patient Social History Smoking Status: Current Everyday Smoker Type Used: Cigarettes 2nd Hand Smoke Exposure: No Recent Hopitalizations: No Immunizations Up To Date Tetanus Booster (TDap): Unknown Date of Pneumonia Vaccine: May 20, 2016 Seasonal Allergies Seasonal Allergies: No Past Medical History Surgeries: Yes (CATARACTS) Section, Eye Surgery, Gallbladder Respiratory: Yes COPD Cardiac: Yes Coronary Artery Disease, High Cholesterol, Hypertension Neurological: Yes Stroke Reproductive Disorders: No Female Reproductive Disorders: Denies [employer] History: Menopausal Sexually Transmitted Disease: No HIV/AIDS: No Genitourinary: No Gastrointestinal: Yes Chronic Constipation Musculoskeletal: Yes (CHRONIC NECK AND BACK PAIN ; UNSTEADY GAIT AND GENERALIZED WEAKNESS) Arthritis, Chronic Back Pain Endocrine: Yes Diabetes, Non-Insulin dep HEENT: No Cancer: No Psychosocial: Yes Depression Integumentary: No Blood Disorders: No Adverse Reaction/Blood Tranf: No Family Medical History Patient reports no known family medical history. No Pertinent Family Hx Physical Exam-Suspected Sepsis Physical Exam Vital Signs Vital Signs - First Documented 04/29/18 04/29/18 16:15 16:30 Temp 100.1 Pulse 104 Resp 20 B/P (MAP) 128/58 (81) Pulse Ox 93 O2 Delivery Nasal Cannula O2 Flow Rate 2.00 Capillary Refill : Height, Weight, BMI Height: 5'1.00" Weight: 172lbs. 2.0oz. 78.514502iv; 32.5 BMI Method:Stated General Appearance: Moderate Distress, Obese Eyes: Bilateral Eye Normal Inspection, Bilateral Eye PERRL, Bilateral Eye EOMI HEENT: PERRL/EOMI, TMs Normal, Normal ENT Inspection; No Pharynx Normal ( oropharynx is exceptionally dry), No Moist Mucous Membranes Neck: Full Range of Motion, Supple Respiratory: Chest Non Tender, Lungs Clear, Normal Breath Sounds, No Accessory Muscle Use, No Respiratory Distress Cardiovascular: Regular Rate, Rhythm, No Edema, Normal Peripheral Pulses Gastrointestinal: Normal Bowel Sounds, Non Tender, Soft Genital/Rectal: Normal Genital Exam Extremity: Non Tender, No Calf Tenderness, No Pedal Edema, Other (there is a unstageable heel pressure ulcer on the left foot and a padded heel protector around the right foot with no obvious pressure ulcer. There is a unstageable sacral pressure ulcer) Neurologic/Psychiatric: Alert, Other (oriented to person and place, lethargic) Skin: normal color, warm/dry Focused Exam Lactate Level 04/29/18 16:20: Lactic Acid Level 1.32 Lactic Acid Level Laboratory Tests Test 04/29/18 16:20 Lactic Acid Level 1.32 MMOL/L (0.50-2.00) Progress/Results/Core Measures Suspected Sepsis SIRS Temperature: Pulse: Respiratory Rate: Laboratory Tests 04/29/18 16:20: White Blood Count 15.0H Blood Pressure / Mean: 04/29/18 16:20: Lactic Acid Level 1.32 Laboratory Tests 04/29/18 16:20: Creatinine 1.37H, INR Comment 1.1, Platelet Count 456H, Total Bilirubin 0.6 Results/Orders Lab Results Laboratory Tests Test 04/29/18 16:18 04/29/18 16:20 04/29/18 16:30 Range/Units Glucometer 200 H 70-110 MG/DL White Blood Count 15.0 H 4.3-11.0 10^3/uL Red Blood Count 4.37 4.35-5.85 10^6/uL Hemoglobin 12.9 11.5-16.0 G/DL Hematocrit 40 35-52 % Mean Corpuscular Volume 92 80-99 FL Mean Corpuscular Hemoglobin 30 25-34 PG Mean Corpuscular Hemoglobin Concent 32 32-36 G/DL Red Cell Distribution Width 15.0 H 10.0-14.5 % Platelet Count 456 H 130-400 10^3/uL Mean Platelet Volume 10.5 H 7.4-10.4 FL Neutrophils (%) (Auto) 75 42-75 % Lymphocytes (%) (Auto) 18 12-44 % Monocytes (%) (Auto) 7 0-12 % Eosinophils (%) (Auto) 0 0-10 % Basophils (%) (Auto) 0 0-10 % Neutrophils # (Auto) 11.2 H 1.8-7.8 X 10^3 Lymphocytes # (Auto) 2.6 1.0-4.0 X 10^3 Monocytes # (Auto) 1.1 H 0.0-1.0 X 10^3 Eosinophils # (Auto) 0.0 0.0-0.3 10^3/uL Basophils # (Auto) 0.0 0.0-0.1 10^3/uL Neutrophils % (Manual) 74 % Lymphocytes % (Manual) 16 % Monocytes % (Manual) 6 % Reactive Lymphocytes 4 % Blood Morphology Comment NORMAL Prothrombin Time 14.2 12.2-14.7 SEC INR Comment 1.1 0.8-1.4 Activated Partial Thromboplast Time 31 24-35 SEC Sodium Level 149 H 135-145 MMOL/L Potassium Level 4.1 3.6-5.0 MMOL/L Chloride Level 116 H 98-107 MMOL/L Carbon Dioxide Level 23 21-32 MMOL/L Anion Gap 10 5-14 MMOL/L Blood Urea Nitrogen 25 H 7-18 MG/DL Creatinine 1.37 H 0.60-1.30 MG/DL Estimat Glomerular Filtration Rate 38 BUN/Creatinine Ratio 18 Glucose Level 209 H 70-105 MG/DL Lactic Acid Level 1.32 0.50-2.00 MMOL/L Calcium Level 9.7 8.5-10.1 MG/DL Corrected Calcium 9.8 8.5-10.1 MG/DL Total Bilirubin 0.6 0.1-1.0 MG/DL Aspartate Amino Transf (AST/SGOT) 13 5-34 U/L Alanine Aminotransferase (ALT/SGPT) 9 0-55 U/L Alkaline Phosphatase 73 40-136 U/L Total Protein 7.5 6.4-8.2 GM/DL Albumin 3.9 3.2-4.5 GM/DL Urine Color YELLOW Urine Clarity VERY CLOUDY H Urine pH 5 5-9 Urine Specific [place] 1.015 L 1.016-1.022 Urine Protein 3+ H NEGATIVE Urine Glucose (UA) NEGATIVE NEGATIVE Urine Ketones 1+ H NEGATIVE Urine Nitrite NEGATIVE NEGATIVE Urine Bilirubin NEGATIVE NEGATIVE Urine Urobilinogen NORMAL NORMAL MG/DL Urine Leukocyte Esterase 3+ H NEGATIVE Urine RBC (Auto) 5+ H NEGATIVE Urine RBC NONE /HPF Urine WBC 50-100 H /HPF Urine Squamous Epithelial Cells >50 H /HPF Urine Crystals NONE /LPF Urine Bacteria FEW H /HPF Urine Casts NONE /LPF Urine Mucus NEGATIVE /LPF Urine Culture Indicated NO My Orders Orders - NORIS MARTIN Cbc With Automated Diff (04/29/18 16:29) Comprehensive Metabolic Panel (04/29/18 16:29) Blood Culture (04/29/18 16:29) Sputum Culture (04/29/18 16:29) Urinalysis (04/29/18 16:29) Urine Culture (04/29/18 16:29) Protime With Inr (04/29/18 16:29) Partial Thromboplastin Time (04/29/18 16:29) Chest 1 View, Ap/Pa Only (04/29/18 16:29) Saline Lock/Iv-Start (04/29/18 16:29) Saline Lock/Iv-Start (04/29/18 16:29) Vital Signs Adult Sepsis Patie Q15M (04/29/18 16:29) O2 (04/29/18 16:29) Remove Rings In Anticipation O (04/29/18 16:29) Lactic Acid Analyzer (04/29/18 16:29) Ns Iv 1000 Ml (Sodium Chloride 0.9%) (04/29/18 16:30) Cefepime Injection (Maxipime Injection) (04/29/18 16:30) Catheter(Urinary) Insert & Ass 03,15 (04/29/18 16:29) Manual Differential (04/29/18 16:20) Medications Given in ED Current Medications Medications Dose Ordered Sig/Joey Route Start Time Stop Time Status Last Admin Dose Admin Cefepime HCl 1000 mg/Sodium Chloride 50 ml @ 100 mls/hr ONCE ONCE IV 04/29/18 16:30 04/29/18 16:59 DC 04/29/18 17:12 100 MLS/HR Sodium Chloride 2,000 ml @ 2,000 mls/hr ONCE ONCE IV 04/29/18 16:30 04/29/18 17:29 DC 04/29/18 16:15 2,000 MLS/HR Vital Signs/I&O 04/29/18 04/29/18 16:15 16:30 Temp 100.1 Pulse 104 Resp 20 B/P (MAP) 128/58 (81) Pulse Ox 93 O2 Delivery Nasal Cannula O2 Flow Rate 2.00 Capillary Refill : Progress Note : Time: 18:29 Progress Note UTI, sepsis, delirium. Cefepime, 20 mL/kg IV fluid bolus and admission. She is mentating and talking a little bit now after some fluids. Initial blood glucose in the ER was 200. Diagnostic Imaging Diagonstic Imaging: Xray Plain Films/CT/US/NM/MRI: chest (1v) Comments NAME: [facility] REC#: [id number] PHYSICIAN: NORIS MARTIN MD CC: JEWELL VALENTINE MD; NORIS MARTIN Page 1 of 1 RADIOLOGY REPORT VIA [facility]. [place], [place] CC: JEWELL VALENTINE MD; NORIS MARTIN Page 1 of 1 [facility] [id number] PT STATUS: REG ER : 1950 PHYSICIAN: NORIS MARTIN MD ADMIT DATE: 04/29/18/ER Signed Date of Exam: 04/29/18 CHEST 1 VIEW, AP/PA ONLY INDICATION: Altered mental status. FINDINGS: Upright portable chest shows normal heart size and vascularity. The lungs are clear. There is no effusion or pneumothorax. There is no bony abnormality. IMPRESSION: No acute abnormality is seen with no change from 02/24/2017. Dictated by: Dictated on workstation # [id number] Dict: 04/29/181723 Trans: 04/29/181748 Interpreted by: JEWELL VALENTINE MD Electronically signed by: JEWELL VALENTINE MD 04/29/181748 Reviewed: Reviewed by Me Departure Communication (Admissions) Time/Spoke to Admitting Phy: 18:40 Discussed case lab imaging findings and he would like a CBC, CMP and he is okay with changing the antibiotics to Rocephin in the morning. Intravenous fluids. Sliding scale insulin. Impression Primary Impression: UTI (urinary tract infection) Qualified Codes: N30.00 - Acute cystitis without hematuria Additional Impressions: Sepsis Qualified Codes: A41.9 - Sepsis, unspecified organism Delirium due to another medical condition, acute, hypoactive Disposition: ADMITTED INPATIENT Condition: Improved Admissions Decision to Admit Reason: Admit from ER (General) Decision to Admit/Date: Apr 29, 2018 Time/Decision to Admit Time: 18:49 Departure-Patient Inst. Referrals: THOMAS CLAIRE DO (PCP/Family) Primary Care Physician NORIS MARTIN Apr 29, 2018 16:40
[2018-04-29 16:50] LABS: BASOPHILS % (AUTO) 0 % (0-10); EOSINOPHILS % (AUTO) 0 % (0-10); HEMATOCRIT 40 % (35-52); HEMOGLOBIN 12.9 G/DL (11.5-16.0); LYMPHOCYTES # (AUTO) 2.6 X 10^3 (1.0-4.0); LYMPHOCYTES % (AUTO) 18 % (12-44); MEAN CORPUSCULAR HEMOGLOBIN 30 PG (25-34); MEAN CORPUSCULAR HGB CONC 32 G/DL (32-36); MEAN CORPUSCULAR VOLUME 92 FL (80-99); MEAN PLATELET VOLUME 10.5 FL (7.4-10.4); MONOCYTES # (AUTO) 1.1 X 10^3 (0.0-1.0); MONOCYTES % (AUTO) 7 % (0-12); NEUTROPHILS # (AUTO) 11.2 X 10^3 (1.8-7.8); NEUTROPHILS % (AUTO) 75 % (42-75); PLATELET COUNT 456 10^3/uL (130-400); RED BLOOD COUNT 4.37 10^6/uL (4.35-5.85)
[2018-04-29 16:51] LABS: BILIRUBIN,URINE NEGATIVE (NEGATIVE); CLARITY,URINE VERY CLOUDY; COLOR,URINE YELLOW; GLUCOSE, URINE (UA) NEGATIVE (NEGATIVE); KETONES,URINE 1+ (NEGATIVE); LEUKOCYTE ESTERASE ,URINE 3+ (NEGATIVE); NITRITE,URINE NEGATIVE (NEGATIVE); PH,URINE 5 (5-9); PROTEIN,URINE 3+ (NEGATIVE); UROBILINOGEN,URINE NORMAL (NORMAL)
[2018-04-29 16:59] LABS: BACTERIA,URINE FEW /HPF; SQUAMOUS EPITHELIAL CELL,UR >50 /HPF; WBC,URINE 50-100 /HPF
[2018-04-29 17:06] LABS: INR 1.1 (0.8-1.4); PROTHROMBIN TIME PATIENT 14.2 SEC (12.2-14.7)
[2018-04-29 17:09] LABS: ALBUMIN 3.9 GM/DL (3.2-4.5); BILIRUBIN,TOTAL 0.6 MG/DL (0.1-1.0); CALCIUM 9.7 MG/DL (8.5-10.1); CREATININE SERUM 1.37 MG/DL (0.60-1.30); POTASSIUM 4.1 MMOL/L (3.6-5.0); TOTAL PROTEIN 7.5 GM/DL (6.4-8.2)
[2018-04-29 17:23] LABS: LYMPHOCYTES % (MANUAL) 16 %; MONOCYTES % (MANUAL) 6 %; NEUTROPHILS % (MANUAL) 74 %; RBC MORPH NORMAL; REACTIVE LYMPHOCYTES 4 %
--- NOTE | 2018-04-29 17:26 | Diagnostic Imaging Report ---
INDICATION: Altered mental status. FINDINGS: Upright portable chest shows normal heart size and vascularity. The lungs are clear. There is no effusion or pneumothorax. There is no bony abnormality. IMPRESSION: No acute abnormality is seen with no change from 02/24/2017. Dictated by: Dictated on workstation # [id number]
[2018-04-29 19:55] VITALS: BP 124/75
[2018-04-29] MEDS ORDERED: 1/2 NS IV SOLUTION 1,000 ML IV ONE (20:06)
[2018-04-29] MEDS ORDERED: ONDANSETRON 4 MG/2 ML (SDV) Z0FRAN IV PRN (20:45)
[2018-04-29] MEDS ORDERED: CATHETER FLUSH 10 ML SYR IV PRN (20:45)
[2018-04-29] MEDS ORDERED: ACETAMINOPHEN 500 MG TAB (TYLENOL) PO PRN (20:45)
[2018-04-29 21:00] VITALS: BP 150/74
[2018-04-29] MEDS: inSUlin ASPART (NovoLOG) 1 UNIT/0.01 ML (CHARGE PER UNIT) SC SCH (21:39)
[2018-04-29] MEDS: ATORVASTATIN 40 MG (LIPITOR) TABLET PO SCH (21:49)
[2018-04-29] MEDS: FAMOTIDINE 20 MG (PEPCID) TABLET PO SCH (21:49)
[2018-04-29] MEDS: 1/2 NS IV SOLUTION 1,000 ML IV SCH (21:50)
[2018-04-29 22:00] VITALS: BP 139/63
[2018-04-29 23:00] VITALS: BP 121/62
[2018-04-30] VITALS (15 sets, daily range): BP systolic 121–169; BP diastolic 58–87
[2018-04-30] MEDS: 1/2 NS IV SOLUTION 1,000 ML IV SCH ×4 (02:04→16:41)
[2018-04-30 03:48] LABS: BASOPHILS # (AUTO) 0.1 10^3/uL (0.0-0.1); BASOPHILS % (AUTO) 0 % (0-10); EOSINOPHILS # (AUTO) 0.1 10^3/uL (0.0-0.3); EOSINOPHILS % (AUTO) 1 % (0-10); HEMATOCRIT 39 % (35-52); HEMOGLOBIN 12.1 G/DL (11.5-16.0); LYMPHOCYTES # (AUTO) 3.2 X 10^3 (1.0-4.0); LYMPHOCYTES % (AUTO) 25 % (12-44); MEAN CORPUSCULAR HEMOGLOBIN 29 PG (25-34); MEAN CORPUSCULAR HGB CONC 31 G/DL (32-36); MEAN CORPUSCULAR VOLUME 94 FL (80-99); MONOCYTES % (AUTO) 8 % (0-12); NEUTROPHILS # (AUTO) 8.2 X 10^3 (1.8-7.8); NEUTROPHILS % (AUTO) 65 % (42-75); PLATELET COUNT 340 10^3/uL (130-400); RED BLOOD COUNT 4.14 10^6/uL (4.35-5.85); RED CELL DISTRIBUTION WIDTH 14.8 % (10.0-14.5); WHITE BLOOD COUNT 12.5 10^3/uL (4.3-11.0)
[2018-04-30 04:10] LABS: ALBUMIN 3.7 GM/DL (3.2-4.5); BILIRUBIN,TOTAL 0.5 MG/DL (0.1-1.0); CALCIUM 9.2 MG/DL (8.5-10.1); CREATININE SERUM 0.94 MG/DL (0.60-1.30); POTASSIUM 3.8 MMOL/L (3.6-5.0); TOTAL PROTEIN 6.8 GM/DL (6.4-8.2)
[2018-04-30 04:23] LABS: CALCIUM 9.2 MG/DL (8.5-10.1); CREATININE SERUM 0.94 MG/DL (0.60-1.30); MAGNESIUM 2.1 MG/DL (1.8-2.4); PHOSPHORUS 2.8 MG/DL (2.3-4.7); POTASSIUM 3.8 MMOL/L (3.6-5.0)
[2018-04-30] MEDS: inSUlin ASPART (NovoLOG) 1 UNIT/0.01 ML (CHARGE PER UNIT) SC SCH ×4 (05:22→21:05)
[2018-04-30] MEDS ORDERED: POTASSIUM CL 10MEQ/50ML IVPB 50 ML IV SCH (06:00)
[2018-04-30] MEDS ORDERED: MAGNESIUM 1 GM/100 ML IVPB 100 ML IV SCH (06:00)
[2018-04-30] MEDS ORDERED: KCL 20 MEQ TAB (K-DUR) PO SCH (06:00)
--- NOTE | 2018-04-30 07:08 | Pulmonary Consultation ---
History of Present Illness History of Present Illness Date of Consultation 04/30/18 07:02 Time Seen by Provider: 07:03 Date of Admission History of Present Illness 68yo with hx of Cdiff colitis (currently on PO Vancomycin) morbid obesity, DM from [facility] presented to ED after staffing found her to be very lethargic and not talking. PT was found to have a UTI, fever and dehydration in the ED. PT was admitted to ICU for close observation. Allergies and Home Medications Allergies Coded Allergies: morphine (Unverified Allergy, Mild, 11/08/13) "ACTS WEIRD" Penicillins (Unverified Allergy, Unknown, 02/02/08) Home Medications Albuterol Sulfate 18 Gm Hfa.aer.ad, 2 PUFF IH Q8H PRN for SHORTNESS OF BREATH, ( Reported) Amlodipine Besylate 5 Mg Tablet, 5 MG PO DAILY, (Reported) Atorvastatin Calcium 40 Mg Tablet, 40 MG PO HS, (Reported) Clonazepam 0.5 Mg Tab.rapdis, 0.5 MG PO Q12H PRN for ANXIETY, (Reported) Clopidogrel Bisulfate 75 Mg Tablet, 75 MG PO DAILY, (Reported) Diphenhydramine HCl 25 Mg Capsule, 25 MG PO Q8H PRN for ITCHING, (Reported) Docusate Sodium 100 Mg Capsule, 100 MG PO Q12H PRN for CONSTIPATION-1ST LINE, ( Reported) Escitalopram Oxalate 20 Mg Tablet, 20 MG PO DAILY, (Reported) Famotidine 20 Mg Tablet, 20 MG PO BID, (Reported) Ferrous Sulfate 325 Mg Tablet, 325 MG PO DAILY, (Reported) Magnesium Hydroxide 400 Mg/5 Ml Oral.susp, 30 ML PO Q12H PRN for CONSTIPATION- 7TH LINE, (Reported) Magnesium Oxide 400 Mg Tablet, 400 MG PO BID, (Reported) Menthol/Camphor 56 Gm Cream..g., TP Q6H PRN for JOINT PAIN, (Reported) Mirtazapine 15 Mg Tablet, 15 MG PO HS, (Reported) Multivits,Stress Formula/Zinc 1 Each Tablet, 1 TAB PO DAILY, (Reported) Nut.tx.impaired Digest Fxn 200 Ml Liquid, 200 ML PO TID, (Reported) Nystatin/Triamcinolone 15 Gm Cr, TP TID, (Reported) Ondansetron HCl 4 Mg Tab, 4 MG PO Q6H PRN for NAUSEA/VOMITING-1ST LINE, ( Reported) Potassium Chloride 10 Meq Tablet.er, 10 MEQ PO BID, (Reported) Protein Supplement 946 Ml Liquid, 30 ML PO DAILY, (Reported) Tramadol HCl 50 Mg Tablet, 50 MG PO Q12H PRN for PAIN-MODERATE, (Reported) Vancomycin HCl 125 Mg/2.5 Ml Syringe, 125 MG PO Q6H Prescribed by: ARNOLDO SANCHEZ on 02/27/17 1127 [Barrier Cream] , TOP BID, (Reported) APPLY TO BILATERAL BUTTOCKS FOR PREVENTATIVE MEASURES Past Lddtzuz-Anmtzo-Dnzjvq Hx Patient Social History Alcohol Use: Denies Use Recreational Drug Use: No Smoking Status: Never a Smoker Type Used: Cigarettes 2nd Hand Smoke Exposure: No Recent Foreign Travel: No Contact w/Someone Who Travel: No Recent Infectious Disease Expo: No Recent Hopitalizations: No Physical Abuse: No Sexual Abuse: No Immunizations Up To Date Tetanus Booster (TDap): Unknown Date of Pneumonia Vaccine: May 20, 2016 Seasonal Allergies Seasonal Allergies: No Past Medical History Surgeries: Yes (CATARACTS) Section, Eye Surgery, Gallbladder Respiratory: Yes COPD Cardiac: Yes Coronary Artery Disease, High Cholesterol, Hypertension Neurological: Yes Stroke Reproductive Disorders: No Female Reproductive Disorders: Denies [employer] History: Menopausal Sexually Transmitted Disease: No HIV/AIDS: No Genitourinary: No Gastrointestinal: Yes Chronic Constipation Musculoskeletal: Yes (CHRONIC NECK AND BACK PAIN ; UNSTEADY GAIT AND GENERALIZED WEAKNESS) Arthritis, Chronic Back Pain Endocrine: Yes Diabetes, Non-Insulin dep HEENT: No Cancer: No Psychosocial: Yes Depression Integumentary: No Blood Disorders: No Adverse Reaction/Blood Tranf: No Family Medical History Patient reports no known family medical history. No Pertinent Family Hx Sepsis Event Evaluation Height, Weight, BMI Height: 5'6.00" Weight: 201lbs. 0.0oz. 91.064425dr; 32.4 BMI Method:Actual Exam Exam Vital Signs Date Time Temp Pulse Resp B/P (MAP) Pulse Ox O2 Delivery O2 Flow Rate FiO2 04/30/18 06:00 62 14 145/69 (94) 95 Nasal Cannula 2.00 04/30/18 05:00 74 8 140/69 (92) 94 Nasal Cannula 2.00 04/30/18 04:00 95 Nasal Cannula 2.00 04/30/18 04:00 75 13 145/66 (92) 95 Nasal Cannula 2.00 04/30/18 03:00 74 14 146/69 (94) 96 Nasal Cannula 2.00 04/30/18 02:00 70 13 131/58 (82) 96 Nasal Cannula 2.00 04/30/18 01:29 79 04/30/18 01:00 75 14 138/63 (88) 96 Nasal Cannula 2.00 04/30/18 00:01 76 13 157/62 (93) 96 Nasal Cannula 2.00 04/30/18 00:00 96 Nasal Cannula 2.00 04/30/18 00:00 97.0 04/30/18 00:00 95 Nasal Cannula 2.00 04/29/18 23:00 76 13 121/62 (81) 96 Nasal Cannula 2.00 04/29/18 22:00 139/63 (88) Nasal Cannula 2.00 04/29/18 21:00 81 9 150/74 (99) 98 Nasal Cannula 2.00 04/29/18 21:00 96 Nasal Cannula 2.00 04/29/18 20:30 79 04/29/18 20:15 96 Nasal Cannula 2.00 04/29/18 19:55 98.0 84 18 124/75 (91) 94 Nasal Cannula 2.00 04/29/18 19:41 100.0 87 16 137/71 92 04/29/18 16:30 93 Nasal Cannula 2.00 04/29/18 16:15 100.1 104 20 128/58 (81) I & O 04/30/18 07:00 Intake Total 50 ml Output Total 900 ml Balance -850 ml Height & Weight Height: 5'6.00" Weight: 201lbs. 0.0oz. 91.410068ao; 32.4 BMI Method:Actual General Appearance: Moderate Distress, Obese HEENT: PERRL/EOMI, TMs Normal, Normal ENT Inspection; No Pharynx Normal ( oropharynx is exceptionally dry), No Moist Mucous Membranes Neck: Full Range of Motion, Supple Respiratory: Chest Non Tender, Lungs Clear, Normal Breath Sounds, No Accessory Muscle Use, No Respiratory Distress Cardiovascular: Regular Rate, Rhythm, No Edema, Normal Peripheral Pulses Capillary Refill: Less Than 3 Seconds Extremity: Non Tender, No Calf Tenderness, No Pedal Edema, Other (there is a unstageable heel pressure ulcer on the left foot and a padded heel protector around the right foot with no obvious pressure ulcer. There is a unstageable sacral pressure ulcer) Neurologic/Psychiatric: Alert, Other (oriented to person and place, lethargic) Results Lab Laboratory Tests 04/29/18 16:20 04/30/18 03:21 Assessment/Plan Assessment/Plan UTI -IVF -Continue Rocephin -[place] cultures pending Dehydration with hypernatremia -IVF- currently on /2 NS Lethargy/metabolic encephalopathy Morbid obesity ZAID AVALOS DO Apr 30, 2018 07:08
--- NOTE | 2018-04-30 07:55 | History & Physicial ---
History of Present Illness History of Present Illness Reason for visit/HPI Patient is a resident of long-term. Patient has been lethargic the last few days and somnolent. Patient not able to speak in the emergency room. Patient running an elevated temperature of 101. Patient has a history of brain tumor. Patient seen by neurologist and stated that the brain tumor was getting bigger by MRI. Patient has altered mental status this morning. Patient can mention her name but not able to give any history or talk. Patient has renal insufficiency. UA shows white blood cells needs to have a culture done. Patient lethargic. Patient not talking much. Patient is a known diabetic. Patient has coronary artery disease. Patient has history of hypertension Date of Admission Apr 29, 2018 at 18:50 Time Seen by a Provider: 07:47 I consulted on this patient on 04/30/18 07:47 Attending Physician Eugenio Claire DO Admitting Physician Eugenio Claire DO Consult Allergies and Home Medications Allergies Coded Allergies: morphine (Unverified Allergy, Mild, 11/08/13) "ACTS WEIRD" Penicillins (Unverified Allergy, Unknown, 02/02/08) Home Medications Albuterol Sulfate 18 Gm Hfa.aer.ad, 2 PUFF IH Q8H PRN for SHORTNESS OF BREATH, ( Reported) Amlodipine Besylate 5 Mg Tablet, 5 MG PO DAILY, (Reported) Atorvastatin Calcium 40 Mg Tablet, 40 MG PO HS, (Reported) Clonazepam 0.5 Mg Tab.rapdis, 0.5 MG PO Q12H PRN for ANXIETY, (Reported) Clopidogrel Bisulfate 75 Mg Tablet, 75 MG PO DAILY, (Reported) Diphenhydramine HCl 25 Mg Capsule, 25 MG PO Q8H PRN for ITCHING, (Reported) Docusate Sodium 100 Mg Capsule, 100 MG PO Q12H PRN for CONSTIPATION-1ST LINE, ( Reported) Escitalopram Oxalate 20 Mg Tablet, 20 MG PO DAILY, (Reported) Famotidine 20 Mg Tablet, 20 MG PO BID, (Reported) Ferrous Sulfate 325 Mg Tablet, 325 MG PO DAILY, (Reported) Magnesium Hydroxide 400 Mg/5 Ml Oral.susp, 30 ML PO Q12H PRN for CONSTIPATION- 7TH LINE, (Reported) Magnesium Oxide 400 Mg Tablet, 400 MG PO BID, (Reported) Menthol/Camphor 56 Gm Cream..g., TP Q6H PRN for JOINT PAIN, (Reported) Mirtazapine 15 Mg Tablet, 15 MG PO HS, (Reported) Multivits,Stress Formula/Zinc 1 Each Tablet, 1 TAB PO DAILY, (Reported) Nut.tx.impaired Digest Fxn 200 Ml Liquid, 200 ML PO TID, (Reported) Nystatin/Triamcinolone 15 Gm Cr, TP TID, (Reported) Ondansetron HCl 4 Mg Tab, 4 MG PO Q6H PRN for NAUSEA/VOMITING-1ST LINE, ( Reported) Potassium Chloride 10 Meq Tablet.er, 10 MEQ PO BID, (Reported) Protein Supplement 946 Ml Liquid, 30 ML PO DAILY, (Reported) Tramadol HCl 50 Mg Tablet, 50 MG PO Q12H PRN for PAIN-MODERATE, (Reported) Vancomycin HCl 125 Mg/2.5 Ml Syringe, 125 MG PO Q6H Prescribed by: ARNOLDO SANCHEZ on 02/27/17 1127 [Barrier Cream] , TOP BID, (Reported) APPLY TO BILATERAL BUTTOCKS FOR PREVENTATIVE MEASURES Patient Home Medication List Home Medication List Reviewed: No Past Hluztls-Gikivn-Robyje Hx Patient Social History Marrital Status: Employed/Student: retired Alcohol Use: Denies Use Recreational Drug Use: No Smoking Status: Never a Smoker Type Used: Cigarettes 2nd Hand Smoke Exposure: No Physical Abuse Screen: No Sexual Abuse: No Recent Foreign Travel: No Contact w/other who traveled: No Recent Hopitalizations: No Recent Infectious Disease Expo: No Immunizations Up To Date Tetanus Booster (TDap): Unknown Date of Pneumonia Vaccine: May 20, 2016 Seasonal Allergies Seasonal Allergies: No Surgeries Yes (CATARACTS) Section, Eye Surgery, Gallbladder Respiratory Yes COPD Cardiovascular Yes Coronary Artery Disease, High Cholesterol, Hypertension Neurological Yes Brain Tumor, Stroke Reproductive System Hx Reproductive Disorders: No Sexually Transmitted Disease: No HIV/AIDS: No Female Reproductive Disorders: Denies 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 Genitourinary No Gastrointestinal Yes Chronic Constipation Musculoskeletal Yes (CHRONIC NECK AND BACK PAIN ; UNSTEADY GAIT AND GENERALIZED WEAKNESS) Arthritis, Chronic Back Pain Endocrine History of Endocrine Disorders: Yes Endocrine Disorders: Diabetes, Non-Insulin dep HEENT History of HEENT Disorders: No Cancer No Psychosocial History of Psychiatric Problem: Yes Behavioral Health Disorders: Depression Integumentary History of Skin or Integumenta: No Blood Transfusions History of Blood Disorders: No Adverse Reaction to a Blood Tr: No Family Medical History Significant Family History: No Pertinent Family Hx Family Hx: Patient reports no known family medical history. Review of Systems Constitutional: fever, malaise, weakness EENTM: no symptoms reported Respiratory: no symptoms reported Cardiovascular: no symptoms reported Gastrointestinal: no symptoms reported Genitourinary: other (UTI) : No Physical Exam Vital Signs Vital Signs - First Documented 04/29/18 04/29/18 16:15 16:30 Temp 100.1 Pulse 104 Resp 20 B/P (MAP) 128/58 (81) Pulse Ox 93 O2 Delivery Nasal Cannula O2 Flow Rate 2.00 Capillary Refill : Less Than 3 Seconds Height, Weight, BMI Height: 5'6.00" Weight: 201lbs. 0.0oz. 91.032903yi; 32.4 BMI Method:Actual General Appearance: WD/WN, Other (Lethargic, not communicating much, weakness) Eyes: Bilateral Eye Normal Inspection HEENT: Normal ENT Inspection, Other (Mouth dry) Neck: Normal Inspection, Non Tender Respiratory: Lungs Clear, No Accessory Muscle Use, No Respiratory Distress Cardiovascular: Regular Rate, Rhythm, No Murmur Gastrointestinal: Non Tender, Soft Assessment/Plan Assessment and Plan Altered mental status. Lethargic. Brain tumor. UTI. Coronary artery disease. Hypertension. Diabetes. Nonverbal Admission Diagnosis Admission Status: Inpatient Order (span 2 midnights) Reason for Inpatient Admission: Altered mental status. UTI. Febrile. Brain tumor. Diabetes. Coronary artery disease. Hypertension history. Confusion today. Nonverbal new-onset Clinical Quality Measures DVT/VTE Risk/Contraindication: Risk Factor Score Per Nursin RFS Level Per Nursing on Admit: 4+=Very High EUGENIO CLAIRE DO Apr 30, 2018 07:55
[2018-04-30] MEDS: CLOPIDOGREL 75 MG (PLAVIX) TABLET PO SCH (08:10)
[2018-04-30] MEDS ORDERED: PROM25SU43 RC (09:12)
[2018-04-30] MEDS ORDERED: ACET-2267 PO (09:12)
[2018-04-30] MEDS ORDERED: GLIM1TAB PO (09:12)
[2018-04-30] MEDS ORDERED: SPIR25TA5 PO (09:12)
[2018-04-30] MEDS ORDERED: ACET650S15 RC (09:12)
[2018-04-30] MEDS ORDERED: AMLO10TA6 PO (09:12)
[2018-04-30] MEDS ORDERED: CAPS42.58 TP (09:12)
[2018-04-30] MEDS ORDERED: GUAI100L36 PO (09:16)
[2018-04-30 09:51] LABS: BILIRUBIN,URINE NEGATIVE (NEGATIVE); CLARITY,URINE CLEAR; COLOR,URINE YELLOW; GLUCOSE, URINE (UA) NEGATIVE (NEGATIVE); KETONES,URINE NEGATIVE (NEGATIVE); LEUKOCYTE ESTERASE ,URINE 2+ (NEGATIVE); NITRITE,URINE NEGATIVE (NEGATIVE); PH,URINE 6 (5-9); PROTEIN,URINE NEGATIVE (NEGATIVE); UROBILINOGEN,URINE NORMAL (NORMAL)
[2018-04-30 10:05] LABS: BACTERIA,URINE TRACE /HPF; RBC,URINE RARE /HPF
--- NOTE | 2018-04-30 10:47 | Diagnostic Imaging Report ---
PROCEDURE: CT head without contrast. TECHNIQUE: Multiple contiguous axial images were obtained through the brain without the use of intravenous contrast. INDICATION: Altered mental status in patient with fall and head injury on 02/02/2018. COMPARISON: Comparison is made to previous study dated 02/02/2018. FINDINGS: Ventricles and sulci remain diffusely prominent. There is no evidence of intracranial hemorrhage. No territorial infarct is identified. There are areas of lacunar infarct involving the ajay to the left of midline and within the right basal ganglia. Calvarium is intact and the visualized paranasal sinuses are clear. IMPRESSION: Advanced senescent findings in the brain without CT evidence of acute intracranial abnormality. Dictated by: Dictated on workstation # [id number]
--- NOTE | 2018-04-30 12:01 | Diagnostic Imaging Report ---
INDICATION: Dyspnea COMPARISON: 04/29/2018 FINDINGS: Single frontal view of the chest demonstrates normal heart size and pulmonary vascularity. The lungs are well aerated and clear. No large pleural effusion or pneumothorax is seen. The visualized osseous structures show no acute abnormalities. IMPRESSION: 1. No acute cardiopulmonary process. Dictated by: Dictated on workstation # [id number]
--- NOTE | 2018-04-30 13:11 | Occupational Therapy Eval ---
OT Evaluation-General/PLF Medical Diagnosis Admission Date Apr 29, 2018 at 18:50 Medical Diagnosis: AMS, UTI Onset Date: Apr 26, 2018 Therapy Diagnosis Therapy Diagnosis: Weakness Height/Weight Height (Feet): 5 Height (Inches): 6.00 Weight (Pounds): 201 Weight (Ounces): 0.0 Precautions Precautions/Isolations: Fall Prevention, Standard Precautions, Pressure Ulcer Safety Interventions: Bed Exit Alarm, Reorient-PRN Weight Bear Status Weight Bearing Restriction: Weight Bearing/Tolerated Referral Physician: Dr. Dennison Referral Reason: Activity Tolerance, Self Care, Evaluation/Treatment, Strengthening/ROM Medical History Pertinent Medical History: Arthritis, CAD, COPD, CVA, DM, HTN, Renal Insufficiency, Smoking Additional Medical History Pt. resident in [place] according to records. Pt. is unable to state where she lives. Came to ER with AMS and UTI. Current History Pt. is unable to verbalize her history. Pt. has brain tumor. Reviewed History: Yes Social History Home: [facility]-Term Current Living Status: Entry Into Home: Level Entry ADL-Prior Level of Function ADL PLOF Comments Pt. is unable to state her prior level of function. Unable to state whether or not she uses a walker. OT Current Status Subjective No pain reported. Appearance Pt. in bed. Agrees to work with OT but lethargic. Declines attempting to sit on side of bed. Mental Status/Objective Patient Orientation: Confused, Mumbles Attachments: Andres Catheter, IV ADL-Treatment Functional [place] Measure 0=Not Assessed/NA 4=Minimal Assistance 1=Total Assistance 5=Supervision or Setup 2=Maximal Assistance 6=Modified Gran[place] 3=Moderate Assistance 7=Complete IndependenceIRFPAI Quality Coding Scale 6 Independent with activity with or without an assistive device 5 Patient requires set up or clean up by helper. Patient completes activity by themselves 4 Supervision or touching assist (CGA). [place] provide cues , steadying assist 3 The helper provides less than half the effort to complete the activity 2 The helper provides more than half the effort to complete the activity 1 Dependent. The helper does all the effort to complete an activity 7 Patient refused to complete or attempt activity 9 The patient did not perform the activity before the current illness or injury 88 Not attempted due to Medical conditions or safety concerns Other Treatments Pt. moves very minimally. Pt. agrees to wash face, brush hair, and brush teeth. Pt. is encouraged to attempt movements and tasks for herself. Pt. is able to put the toothbrush in her mouth, but only touches tongue and moves brush slightly. OT offers multiple times to assist with brushing teeth. Pt. declines and becomes slightly agitated at offer. Pt. does allow OT to brush her hair, and eventually allows her to wash face after pt. "dabs" at face for quite awhile. Pt. states, "I guess you are in too big a hurry." Pt. demonstrates very limited UE movement. Pt. confused and unable to report history. Pt. unable to follow cues and very lethargic. Positioned pt. to comfort with no assist from pt. All needs met in room. Education OT Patient Education: Correct positioning, Modified ADL techniques, Progress toward Goal/Update tx plan, Purpose of tx/functional activities, Reviewed precautions, Rehab process, Transfer techniques Teaching Recipient: Patient Teaching Methods: Demonstration Response to Teaching: Verbalize Understanding, Return Demonstration OT Short Term Goals Short Term Goals Time Frame: May 14, 2018 Eating(FIM): 4 Grooming(FIM): 4 Bathing(FIM): 3 Upper Body Dressing(FIM): 4 Lower Body Dressing(FIM): 3 Toileting(FIM): 3 Transfers (B,C,W/C) (FIM): 3 Toilet/Commode Transfer(FIM): 3 Additional Short Term Goals: 1-Demonstrate ADL Tasks, 2-Verbalize Understanding , 3-ImproveStrength/Bienvenido 1=Demonstrate adherence to instructed precautions during ADL tasks. 2=Patient will verbalize/demonstrate understanding of assistive devices/ modifications for ADL. 3=Patient will improve strength/tolerance for activity to enable patient to perform ADL's. OT Fdc Goals Medical Van Driver Goals Time Frame: May 28, 2018 Eating (FIM): 5 Grooming(FIM): 5 Bathing(FIM): 4 Upper Body Dressing(FIM): 5 Lower Body Dressing(FIM): 4 Toileting(FIM): 5 Transfers (B,C,W/C) (FIM): 5 Toilet/Commode Transfer(FIM): 5 Shower Transfer(FIM): 4 Additional Goals: 1-Demonstrate ADL Tasks, 2-Verbalize Understanding, 3- ImproveStrength/Bienvenido 1=Demonstrate adherence to instructed precautions during ADL tasks. 2=Patient will verbalize/demonstrate understanding of assistive devices/ modifications for ADL. 3=Patient will improve strength/tolerance for activity to enable patient to perform ADL's. OT Education/Plan Problem List/Assessment Assessment: Decreased Activ Tolerance, Decreased Safety Aware, Decreased UE Strength, Dependent Transfers, Impaired Bed Mobility, Impaired Cognition, Impaired Coordination, Impaired Funct Balance, Impaired I ADL's, Impaired Self- Care Skills, Restricted Funct UE ROM Discharge Recommendations Plan/Recommendations: Continue POC Therapy D/C Recommendations: 24 hr Supervision Treatment Plan/Plan of Care Treatment,Training & Education: Yes Patient would benefit from OT for education, treatment and training to promote independence in ADL's, mobility, safety and/or upper extremity function for ADL' s. Plan of Care: ADL Retraining, Cognitive Retraining, Functional Mobility, UE Funct Exercise/Act Treatment Duration: May 28, 2018 Frequency: 5 times per week Estimated Hrs Per Day: .25 hour per day Agreement: Yes Rehab Potential: Fair Time/GCodes Start Time: 08:35 Stop Time: 09:05 Total Time Billed (hr/min): 30 Billed Treatment Time 1, EVH x 15minutes, ADL x 15minutes SHANNAN BEARD OT Apr 30, 2018 13:11
[2018-04-30] MEDS: FAMOTIDINE 20 MG (PEPCID) TABLET PO SCH (21:05)
[2018-04-30] MEDS: ATORVASTATIN 40 MG (LIPITOR) TABLET PO SCH (21:05)
[2018-05-01] VITALS: BP 156/71
[2018-05-01 04:00] VITALS: BP 127/57
[2018-05-01] MEDS: 1/2 NS IV SOLUTION 1,000 ML IV SCH ×2 (05:24→20:20)
[2018-05-01] MEDS: inSUlin ASPART (NovoLOG) 1 UNIT/0.01 ML (CHARGE PER UNIT) SC SCH ×4 (05:25→21:23)
[2018-05-01 06:44] LABS: BASOPHILS % (AUTO) 0 % (0-10); EOSINOPHILS # (AUTO) 0.2 10^3/uL (0.0-0.3); EOSINOPHILS % (AUTO) 2 % (0-10); HEMATOCRIT 34 % (35-52); HEMOGLOBIN 11.3 G/DL (11.5-16.0); LYMPHOCYTES # (AUTO) 2.2 X 10^3 (1.0-4.0); LYMPHOCYTES % (AUTO) 22 % (12-44); MEAN CORPUSCULAR HEMOGLOBIN 30 PG (25-34); MEAN CORPUSCULAR HGB CONC 33 G/DL (32-36); MEAN CORPUSCULAR VOLUME 91 FL (80-99); MEAN PLATELET VOLUME 10.4 FL (7.4-10.4); MONOCYTES # (AUTO) 0.6 X 10^3 (0.0-1.0); MONOCYTES % (AUTO) 6 % (0-12); NEUTROPHILS # (AUTO) 6.9 X 10^3 (1.8-7.8); NEUTROPHILS % (AUTO) 70 % (42-75); PLATELET COUNT 251 10^3/uL (130-400); RED BLOOD COUNT 3.72 10^6/uL (4.35-5.85); RED CELL DISTRIBUTION WIDTH 13.6 % (10.0-14.5); WHITE BLOOD COUNT 9.8 10^3/uL (4.3-11.0)
--- NOTE | 2018-05-01 06:49 | Progress Note (SOAP) ---
Subjective Time Seen by a Provider: 06:45 Subjective/Events-last exam Patient is confused this morning. Patient feel she is in my office. Patient has a stare. Patient seen cats and ducks in her room. Altered mental status. Blood tests not on chart yet Focused Exam Lactate Level 04/29/18 16:20: Lactic Acid Level 1.32 Objective Exam Vital Signs Date Time Temp Pulse Resp B/P (MAP) Pulse Ox O2 Delivery O2 Flow Rate FiO2 05/01/18 04:00 98.0 63 16 127/57 (80) 95 Room Air 05/01/18 01:00 67 05/01/18 00:00 98.2 71 18 156/71 (99) 95 Room Air 04/30/18 20:58 98.6 67 18 164/71 (102) 96 Room Air 04/30/18 19:00 68 04/30/18 15:32 98.4 66 18 169/73 (105) 96 Room Air 04/30/18 13:00 69 04/30/18 12:00 Nasal Cannula 0.50 04/30/18 12:00 Nasal Cannula 0.50 04/30/18 12:00 67 133/62 (85) 95 Nasal Cannula 2.00 04/30/18 11:00 76 139/72 (94) 94 Nasal Cannula 2.00 04/30/18 10:00 68 11 135/62 (86) 95 Nasal Cannula 2.00 04/30/18 09:00 75 14 143/64 (90) 95 Nasal Cannula 2.00 04/30/18 08:15 Nasal Cannula 0.50 04/30/18 08:15 Nasal Cannula 0.50 04/30/18 08:00 68 12 121/87 (98) 95 Nasal Cannula 2.00 04/30/18 07:52 Nasal Cannula 2.00 04/30/18 07:00 61 13 148/74 (98) 92 Nasal Cannula 2.00 04/30/18 07:00 61 I & O 05/01/18 07:00 Intake Total 4250 ml Output Total 2025 ml Balance 2225 ml Capillary Refill : Less Than 3 Seconds General Appearance: No Apparent Distress, WD/WN HEENT: Normal ENT Inspection Neck: Full Range of Motion, Normal Inspection Respiratory: Lungs Clear, No Accessory Muscle Use, No Respiratory Distress Cardiovascular: Regular Rate, Rhythm, No Murmur Gastrointestinal: non tender, soft Results Lab Laboratory Tests 05/01/18 06:25 Laboratory Tests 04/30/18 09:46: Urine Color YELLOW, Urine Clarity CLEAR, Urine pH 6, Urine Specific [place] 1.010L, Urine Protein NEGATIVE, Urine Glucose (UA) NEGATIVE, Urine Ketones NEGATIVE, Urine Nitrite NEGATIVE, Urine Bilirubin NEGATIVE, Urine Urobilinogen NORMAL, Urine Leukocyte Esterase 2+H, Urine RBC (Auto) NEGATIVE, Urine RBC RARE , Urine WBC 10-25H, Urine Squamous Epithelial Cells 2-5, Urine Renal Epithelial Cells NONE, Urine Crystals NONE, Urine Bacteria TRACE, Urine Casts PRESENT, Urine Hyaline Casts 2-5H, Urine Mucus SMALLH, Urine Culture Indicated YES 04/30/18 11:52: Glucometer 89 04/30/18 16:27: Glucometer 84 04/30/18 21:03: Glucometer 114H 05/01/18 05:20: Glucometer 75 05/01/18 06:25: Microbiology 04/29/18 Blood Culture - Preliminary, Resulted No growth 04/30/18 Urine Culture - Preliminary, Resulted Sent To [facility] Assessment/Plan Assessment/Plan Assess & Plan/Chief Complaint Acute mental status change. Renal insufficiency.. Patient verbal this morning but confused. Lethargic. Brain tumor. UTI. Coronary artery disease. Hypertension. Diabetes Clinical Quality Measures Admission Status Admission Dx Altered mental status. Lethargic. Brain tumor. UTI. Coronary artery disease. Hypertension. Diabetes. Nonverbal DVT/VTE Risk/Contraindication: Risk Factor Score Per Nursin RFS Level Per Nursing on Admit: 4+=Very High Contraindications-Pharm: Other *list below* THOMAS CLAIRE DO May 01, 2018 06:49
[2018-05-01 07:06] LABS: BUN/CREATININE RATIO 13; CALCIUM 8.8 MG/DL (8.5-10.1); CARBON DIOXIDE 20 MMOL/L (21-32); CHLORIDE 110 MMOL/L (98-107); CREATININE SERUM 0.78 MG/DL (0.60-1.30); GFR ESTIMATED > 60; GLUCOSE 71 MG/DL (70-105); MAGNESIUM 1.7 MG/DL (1.8-2.4); PHOSPHORUS 2.8 MG/DL (2.3-4.7); POTASSIUM 3.3 MMOL/L (3.6-5.0); SODIUM 137 MMOL/L (135-145)
[2018-05-01 08:00] VITALS: BP 136/63
--- NOTE | 2018-05-01 08:19 | Pulmonary Progress Note ---
Subjective Time Seen by a Provider: 08:18 Subjective/Events-last exam No respiratory complications noted. Sepsis Event Evaluation Height, Weight, BMI Height: 5'6.00" Weight: 207lbs. 9.0oz. 94.875312zx; 32.4 BMI Method:Actual Focused Exam Lactate Level 04/29/18 16:20: Lactic Acid Level 1.32 Exam Exam Vital Signs Date Time Temp Pulse Resp B/P (MAP) Pulse Ox O2 Delivery O2 Flow Rate FiO2 05/01/18 07:00 71 05/01/18 04:00 98.0 63 16 127/57 (80) 95 Room Air 05/01/18 01:00 67 05/01/18 00:00 98.2 71 18 156/71 (99) 95 Room Air 04/30/18 20:58 98.6 67 18 164/71 (102) 96 Room Air 04/30/18 19:00 68 04/30/18 15:32 98.4 66 18 169/73 (105) 96 Room Air 04/30/18 13:00 69 04/30/18 12:00 Nasal Cannula 0.50 04/30/18 12:00 Nasal Cannula 0.50 04/30/18 12:00 67 133/62 (85) 95 Nasal Cannula 2.00 04/30/18 11:00 76 139/72 (94) 94 Nasal Cannula 2.00 04/30/18 10:00 68 11 135/62 (86) 95 Nasal Cannula 2.00 04/30/18 09:00 75 14 143/64 (90) 95 Nasal Cannula 2.00 I & O 05/01/18 07:00 Intake Total 4250 ml Output Total 2025 ml Balance 2225 ml Height & Weight Height: 5'6.00" Weight: 207lbs. 9.0oz. 94.891247ky; 32.4 BMI Method:Actual General Appearance: No Apparent Distress, WD/WN HEENT: Normal ENT Inspection Neck: Full Range of Motion, Normal Inspection Respiratory: Lungs Clear, No Accessory Muscle Use, No Respiratory Distress Cardiovascular: Regular Rate, Rhythm, No Murmur Capillary Refill: Less Than 3 Seconds Gastrointestinal: non tender, soft Extremity: Non Tender, No Calf Tenderness, No Pedal Edema, Other (there is a unstageable heel pressure ulcer on the left foot and a padded heel protector around the right foot with no obvious pressure ulcer. There is a unstageable sacral pressure ulcer) Neurologic/Psychiatric: Alert, Other (oriented to person and place, lethargic) Results Lab Laboratory Tests 04/29/18 16:20 04/30/18 03:21 05/01/18 06:25 Assessment/Plan Assessment/Plan UTI -IVF -Continue Rocephin -St[place] cultures pending Dehydration with hypernatremia -IVF- currently on 08/05 NS Lethargy/metabolic encephalopathy Morbid obesity I am going to sign off please call with any questions. ZAID AVALOS DO May 01, 2018 8:19 am
[2018-05-01] MEDS: CLOPIDOGREL 75 MG (PLAVIX) TABLET PO SCH (09:32)
[2018-05-01] MEDS: DEXAMETHASONE 4 MG/ML SDV (DECADRON) IV SCH (09:55)
[2018-05-01] MEDS ORDERED: FLU QUADRIvalent (5+ YOA) 2018-2019 (AFLURIA) 0.5 ML IM ONE (11:15)
[2018-05-01 12:00] VITALS: BP 128/64
--- NOTE | 2018-05-01 13:42 | Occupational Ther Daily Note ---
OT Current Status-Daily Note Subjective Pt. does not report pain. Appearance Pt. in bed with tray in front of her. Mental Status/Objective Patient Orientation: Confused Functional [place] Measure 0=Not Assessed/NA 4=Minimal Assistance 1=Total Assistance 5=Supervision or Setup 2=Maximal Assistance 6=Modified [place] 3=Moderate Assistance 7=Complete [place] Other Treatment Pt. in bed with HOB elevated and tray in front. Pt. has eaten half of her food but it is also all over her and tray. Pt. states that she is done when asked, but attempts to take her tea. Unable to pick tea up and so OT has to hold it for her so she can drink. Pt. very confused. Unable to answer OT's questions, and states that OT was with her all night. Does not believe OT that she was not. OT gives pt. washcloth to wash hands. Pt. dabs at hands but barely cleans them. Pt. does not know where she is. OT attempts to re-position pt. in bed but pt. states, "stop." States that she is comfortable when asked, and wants to stay how she is. OT provides blanket and call light. Spoke with nursing who states that pt. was re-positioned. Pt. left in current position. All needs met. Education OT Patient Education: Correct positioning, Modified ADL techniques, Progress toward Goal/Update tx plan, Purpose of tx/functional activities, Reviewed precautions, Rehab process Teaching Recipient: Patient Teaching Methods: Demonstration, Discussion Response to Teaching: Unable to Return Demonstration OT Short Term Goals Short Term Goals Time Frame: May 14, 2018 Eating(FIM): 4 Grooming(FIM): 4 Bathing(FIM): 3 Upper Body Dressing(FIM): 4 Lower Body Dressing(FIM): 3 Toileting(FIM): 3 Transfers (B,C,W/C) (FIM): 3 Toilet/Commode Transfer(FIM): 3 Additional Short Term Goals: 1-Demonstrate ADL Tasks, 2-Verbalize Understanding , 3-ImproveStrength/Bienvenido 1=Demonstrate adherence to instructed precautions during ADL tasks. 2=Patient will verbalize/demonstrate understanding of assistive devices/ modifications for ADL. 3=Patient will improve strength/tolerance for activity to enable patient to perform ADL's. OT Correction Goals Correction Goals Time Frame: May 28, 2018 Eating (FIM): 5 Grooming(FIM): 5 Bathing(FIM): 4 Upper Body Dressing(FIM): 5 Lower Body Dressing(FIM): 4 Toileting(FIM): 5 Transfers (B,C,W/C) (FIM): 5 Toilet/Commode Transfer(FIM): 5 Shower Transfer(FIM): 4 Additional Goals: 1-Demonstrate ADL Tasks, 2-Verbalize Understanding, 3- ImproveStrength/Bienvenido 1=Demonstrate adherence to instructed precautions during ADL tasks. 2=Patient will verbalize/demonstrate understanding of assistive devices/ modifications for ADL. 3=Patient will improve strength/tolerance for activity to enable patient to perform ADL's. OT Education/Plan Problem List/Assessment Assessment: Decreased Activ Tolerance, Decreased Safety Aware, Decreased UE Strength, Dependent Transfers, Impaired Bed Mobility, Impaired Cognition, Impaired Coordination, Impaired Funct Balance, Impaired I ADL's, Impaired Self- Care Skills, Restricted Funct UE ROM Discharge Recommendations Plan/Recommendations: Continue POC Therapy D/C Recommendations: 24 hr Supervision Treatment Plan/Plan of Care Treatment,Training & Education: Yes Patient would benefit from OT for education, treatment and training to promote independence in ADL's, mobility, safety and/or upper extremity function for ADL' s. Plan of Care: ADL Retraining, Cognitive Retraining, Functional Mobility, UE Funct Exercise/Act Treatment Duration: May 28, 2018 Frequency: 5 times per week Estimated Hrs Per Day: .25 hour per day Agreement: Yes Rehab Potential: Poor Time/GCodes Start Time: 12:15 Stop Time: 12:30 Total Time Billed (hr/min): 15 Billed Treatment Time 1, ADL SHANNAN BEARD OT May 01, 2018 13:42
[2018-05-01 16:10] VITALS: BP 149/69
[2018-05-01 20:41] VITALS: BP 138/63
[2018-05-01] MEDS: FAMOTIDINE 20 MG (PEPCID) TABLET PO SCH (21:22)
[2018-05-01] MEDS: ATORVASTATIN 40 MG (LIPITOR) TABLET PO SCH (21:23)
[2018-05-02 00:08] VITALS: BP 163/67
[2018-05-02 04:00] VITALS: BP 139/69
[2018-05-02] MEDS: inSUlin ASPART (NovoLOG) 1 UNIT/0.01 ML (CHARGE PER UNIT) SC SCH ×4 (05:14→21:05)
[2018-05-02 06:16] LABS: BASOPHILS % (AUTO) 0 % (0-10); EOSINOPHILS % (AUTO) 0 % (0-10); HEMATOCRIT 35 % (35-52); HEMOGLOBIN 11.8 G/DL (11.5-16.0); LYMPHOCYTES % (AUTO) 15 % (12-44); MEAN CORPUSCULAR HEMOGLOBIN 30 PG (25-34); MEAN CORPUSCULAR HGB CONC 34 G/DL (32-36); MEAN CORPUSCULAR VOLUME 88 FL (80-99); MEAN PLATELET VOLUME 10.7 FL (7.4-10.4); MONOCYTES # (AUTO) 0.3 X 10^3 (0.0-1.0); MONOCYTES % (AUTO) 5 % (0-12); NEUTROPHILS # (AUTO) 5.4 X 10^3 (1.8-7.8); NEUTROPHILS % (AUTO) 80 % (42-75); PLATELET COUNT 276 10^3/uL (130-400); RED CELL DISTRIBUTION WIDTH 13.1 % (10.0-14.5); WHITE BLOOD COUNT 6.7 10^3/uL (4.3-11.0)
[2018-05-02 06:36] LABS: BUN/CREATININE RATIO 15; CALCIUM 9.3 MG/DL (8.5-10.1); CARBON DIOXIDE 16 MMOL/L (21-32); CHLORIDE 109 MMOL/L (98-107); GFR ESTIMATED > 60; GLUCOSE 177 MG/DL (70-105); MAGNESIUM 1.7 MG/DL (1.8-2.4); PHOSPHORUS 2.8 MG/DL (2.3-4.7); SODIUM 137 MMOL/L (135-145)
[2018-05-02] MEDS: CLOPIDOGREL 75 MG (PLAVIX) TABLET PO SCH (08:46)
[2018-05-02] MEDS: DEXAMETHASONE 4 MG/ML SDV (DECADRON) IV SCH (08:46)
[2018-05-02 08:52] VITALS: BP 133/69
[2018-05-02 12:00] VITALS: BP 142/62
--- NOTE | 2018-05-02 12:29 | Progress Note-Hospitalist ---
Subjective HPI/CC On Admission Date Seen by Provider: May 02, 2018 Time Seen by Provider: 11:00 Subjective/Events-last exam Patient about the same Checked med and labs Denies pain On air mattress and won't really get out of bed Reviewed UCx Rocephin tolerated well Review of Systems General: Malaise Focused Exam Lactate Level 04/29/18 16:20: Lactic Acid Level 1.32 Objective Exam Vital Signs Vital Signs Date Time Temp Pulse Resp B/P (MAP) Pulse Ox O2 Delivery O2 Flow Rate FiO2 05/02/18 12:00 97.8 72 20 142/62 (88) 96 Room Air 04/30/18 12:00 0.50 Capillary Refill : Less Than 3 Seconds General Appearance: No Apparent Distress, WD/WN, Chronically ill Respiratory: Chest Non Tender, Lungs Clear, Normal Breath Sounds, No Accessory Muscle Use, No Respiratory Distress Cardiovascular: Regular Rate, Rhythm, No Edema, No Gallop, No JVD, No Murmur, Normal Peripheral Pulses Neurologic/Psychiatric: Alert, Oriented x3, No Motor/Sensory Deficits, Depressed Affect Results/Procedures Lab Laboratory Tests 05/02/18 05:45 Patient resulted labs reviewed. Assessment/Plan Assessment and Plan Assess & Plan/Chief Complaint UTI Sepsis Debility Confusion Plan: IVF IV abx Diagnosis/Problems Diagnosis/Problems (1) UTI (urinary tract infection) Status: Acute Qualifiers: Urinary tract infection type: acute cystitis Hematuria presence: without hematuria Qualified Codes: N30.00 - Acute cystitis without hematuria (2) Sepsis Status: Acute Qualifiers: Sepsis type: sepsis due to unspecified organism Qualified Codes: A41.9 - Sepsis, unspecified organism (3) Delirium due to another medical condition, acute, hypoactive Status: Acute Clinical Quality Measures DVT/VTE Risk/Contraindication: Risk Factor Score Per Nursin RFS Level Per Nursing on Admit: 4+=Very High Contraindications-Pharm: Other *list below* MASON ARGUETA DO May 02, 2018 12:29
[2018-05-02] MEDS: 1/2 NS IV SOLUTION 1,000 ML IV SCH (13:00)
[2018-05-02 16:07] VITALS: BP 165/69
[2018-05-02 19:36] VITALS: BP 137/64
[2018-05-02] MEDS: FAMOTIDINE 20 MG (PEPCID) TABLET PO SCH (21:05)
[2018-05-02] MEDS: ATORVASTATIN 40 MG (LIPITOR) TABLET PO SCH (21:05)
[2018-05-03] VITALS (7 sets, daily range): BP systolic 135–168; BP diastolic 62–72
[2018-05-03] MEDS: inSUlin ASPART (NovoLOG) 1 UNIT/0.01 ML (CHARGE PER UNIT) SC SCH ×4 (05:44→20:53)
[2018-05-03 06:37] LABS: BASOPHILS % (AUTO) 0 % (0-10); EOSINOPHILS % (AUTO) 0 % (0-10); HEMATOCRIT 33 % (35-52); HEMOGLOBIN 11.3 G/DL (11.5-16.0); LYMPHOCYTES # (AUTO) 1.7 X 10^3 (1.0-4.0); LYMPHOCYTES % (AUTO) 19 % (12-44); MEAN CORPUSCULAR HEMOGLOBIN 30 PG (25-34); MEAN CORPUSCULAR HGB CONC 35 G/DL (32-36); MEAN CORPUSCULAR VOLUME 88 FL (80-99); MEAN PLATELET VOLUME 11.1 FL (7.4-10.4); MONOCYTES # (AUTO) 0.5 X 10^3 (0.0-1.0); MONOCYTES % (AUTO) 6 % (0-12); NEUTROPHILS # (AUTO) 6.6 X 10^3 (1.8-7.8); NEUTROPHILS % (AUTO) 76 % (42-75); PLATELET COUNT 284 10^3/uL (130-400); RED BLOOD COUNT 3.72 10^6/uL (4.35-5.85); RED CELL DISTRIBUTION WIDTH 13.2 % (10.0-14.5); WHITE BLOOD COUNT 8.7 10^3/uL (4.3-11.0)
[2018-05-03 07:04] LABS: BUN/CREATININE RATIO 14; CALCIUM 9.1 MG/DL (8.5-10.1); CARBON DIOXIDE 21 MMOL/L (21-32); CHLORIDE 108 MMOL/L (98-107); GFR ESTIMATED > 60; GLUCOSE 157 MG/DL (70-105); MAGNESIUM 1.8 MG/DL (1.8-2.4); PHOSPHORUS 2.6 MG/DL (2.3-4.7); POTASSIUM 3.7 MMOL/L (3.6-5.0); SODIUM 139 MMOL/L (135-145)
[2018-05-03] MEDS: 1/2 NS IV SOLUTION 1,000 ML IV SCH (07:57)
[2018-05-03] MEDS: DEXAMETHASONE 4 MG/ML SDV (DECADRON) IV SCH (07:58)
[2018-05-03] MEDS: CLOPIDOGREL 75 MG (PLAVIX) TABLET PO SCH (07:59)
--- NOTE | 2018-05-03 12:12 | Progress Note-Hospitalist ---
Subjective HPI/CC On Admission Date Seen by Provider: May 03, 2018 Time Seen by Provider: 11:00 Subjective/Events-last exam patient is the same Abx tolerated Incontinent of stool although she denies this No pain is reported On air mattress Review of Systems General: Fatigue Objective Exam Vital Signs Vital Signs Date Time Temp Pulse Resp B/P (MAP) Pulse Ox O2 Delivery O2 Flow Rate FiO2 05/03/18 08:00 97.6 63 18 159/70 (99) 93 Room Air 04/30/18 12:00 0.50 Capillary Refill : Less Than 3 Seconds General Appearance: No Apparent Distress, WD/WN, Chronically ill Respiratory: Chest Non Tender, Lungs Clear, Normal Breath Sounds, No Accessory Muscle Use, No Respiratory Distress Cardiovascular: Regular Rate, Rhythm, No Edema, No Gallop, No JVD, No Murmur, Normal Peripheral Pulses Neurologic/Psychiatric: Alert, Oriented x3, No Motor/Sensory Deficits, Normal Mood/Affect Results/Procedures Lab Laboratory Tests 05/03/18 06:15 Patient resulted labs reviewed. Assessment/Plan Assessment and Plan Assess & Plan/Chief Complaint UTI Sepsis Debility Confusion Plan: IVF IV abx Diagnosis/Problems Diagnosis/Problems (1) UTI (urinary tract infection) Status: Acute Qualifiers: Urinary tract infection type: acute cystitis Hematuria presence: without hematuria Qualified Codes: N30.00 - Acute cystitis without hematuria (2) Sepsis Status: Resolved Qualifiers: Sepsis type: sepsis due to unspecified organism Qualified Codes: A41.9 - Sepsis, unspecified organism (3) Delirium due to another medical condition, acute, hypoactive Status: Acute Clinical Quality Measures DVT/VTE Risk/Contraindication: Risk Factor Score Per Nursin RFS Level Per Nursing on Admit: 4+=Very High Contraindications-Pharm: Other *list below* MASON ARGUETA DO May 03, 2018 12:12
[2018-05-03] MEDS: FAMOTIDINE 20 MG (PEPCID) TABLET PO SCH (20:19)
[2018-05-03] MEDS: ATORVASTATIN 40 MG (LIPITOR) TABLET PO SCH (20:19)
[2018-05-04] VITALS: BP 150/66
[2018-05-04] MEDS: 1/2 NS IV SOLUTION 1,000 ML IV SCH ×2 (00:56→16:49)
[2018-05-04] MEDS: inSUlin ASPART (NovoLOG) 1 UNIT/0.01 ML (CHARGE PER UNIT) SC SCH ×4 (05:44→21:06)
[2018-05-04 06:04] LABS: BASOPHILS % (AUTO) 0 % (0-10); EOSINOPHILS % (AUTO) 0 % (0-10); HEMATOCRIT 33 % (35-52); LYMPHOCYTES # (AUTO) 2.3 X 10^3 (1.0-4.0); LYMPHOCYTES % (AUTO) 24 % (12-44); MEAN CORPUSCULAR HEMOGLOBIN 29 PG (25-34); MEAN CORPUSCULAR HGB CONC 33 G/DL (32-36); MEAN CORPUSCULAR VOLUME 89 FL (80-99); MEAN PLATELET VOLUME 10.9 FL (7.4-10.4); MONOCYTES # (AUTO) 0.6 X 10^3 (0.0-1.0); MONOCYTES % (AUTO) 6 % (0-12); NEUTROPHILS # (AUTO) 6.7 X 10^3 (1.8-7.8); NEUTROPHILS % (AUTO) 70 % (42-75); PLATELET COUNT 297 10^3/uL (130-400); RED BLOOD COUNT 3.77 10^6/uL (4.35-5.85); RED CELL DISTRIBUTION WIDTH 13.4 % (10.0-14.5); WHITE BLOOD COUNT 9.7 10^3/uL (4.3-11.0)
[2018-05-04 06:22] LABS: BUN/CREATININE RATIO 17; CARBON DIOXIDE 22 MMOL/L (21-32); CHLORIDE 107 MMOL/L (98-107); CREATININE SERUM 0.76 MG/DL (0.60-1.30); GFR ESTIMATED > 60; GLUCOSE 132 MG/DL (70-105); PHOSPHORUS 2.8 MG/DL (2.3-4.7); POTASSIUM 3.8 MMOL/L (3.6-5.0); SODIUM 137 MMOL/L (135-145)
[2018-05-04 08:00] VITALS: BP 161/74
--- NOTE | 2018-05-04 08:18 | Progress Note (SOAP) ---
Subjective Time Seen by a Provider: 08:14 Subjective/Events-last exam Patient can answer questions today. Patient more alert. Objective Exam Vital Signs Date Time Temp Pulse Resp B/P (MAP) Pulse Ox O2 Delivery O2 Flow Rate FiO2 05/04/18 00:00 98.4 53 16 150/66 (94) 96 Room Air 05/03/18 20:55 62 157/70 (99) 05/03/18 19:26 97.9 57 18 168/70 (102) 98 Room Air 05/03/18 15:53 97.4 65 18 135/62 (86) 97 Room Air 05/03/18 12:52 98.5 61 18 152/68 (96) 97 Room Air I & O 05/04/18 07:00 Intake Total 2762 ml Output Total 2975 ml Balance -213 ml Capillary Refill : Less Than 3 Seconds General Appearance: No Apparent Distress, WD/WN HEENT: Normal ENT Inspection Neck: Full Range of Motion, Normal Inspection Respiratory: Lungs Clear, No Accessory Muscle Use, No Respiratory Distress Cardiovascular: Regular Rate, Rhythm, No Murmur Gastrointestinal: non tender, soft Results Lab Laboratory Tests 05/04/18 05:55 Laboratory Tests 05/03/18 10:57: Glucometer 218H 05/03/18 15:56: Glucometer 210H 05/03/18 20:44: Glucometer 242H 05/04/18 05:43: Glucometer 127H 05/04/18 05:55: White Blood Count 9.7, Red Blood Count 3.77L, Hemoglobin 11.0L, Hematocrit 33L, Mean Corpuscular Volume 89, Mean Corpuscular Hemoglobin 29, Mean Corpuscular Hemoglobin Concent 33, Red Cell Distribution Width 13.4, Platelet Count 297, Mean Platelet Volume 10.9H, Neutrophils (%) (Auto) 70, Lymphocytes (%) (Auto) 24 , Monocytes (%) (Auto) 6, Eosinophils (%) (Auto) 0, Basophils (%) (Auto) 0, Neutrophils # (Auto) 6.7, Lymphocytes # (Auto) 2.3, Monocytes # (Auto) 0.6, Eosinophils # (Auto) 0.0, Basophils # (Auto) 0.0, Sodium Level 137, Potassium Level 3.8, Chloride Level 107, Carbon Dioxide Level 22, Anion Gap 8, Blood Urea Nitrogen 13, Creatinine 0.76, Estimat Glomerular Filtration Rate > 60, BUN/ Creatinine Ratio 17, Glucose Level 132H, Calcium Level 9.0, Phosphorus Level 2.8 , Magnesium Level 2.0 Microbiology 04/29/18 Blood Culture - Preliminary, Resulted No growth 04/30/18 Urine Culture - Final, Complete Enterococcus faecalis Assessment/Plan Assessment/Plan Assess & Plan/Chief Complaint Acute mental status change. Renal insufficiency.. Patient verbal this morning but confused. Lethargic. Brain tumor. UTI. Coronary artery disease. Hypertension. Diabetes . 05/04/18. Patient able to converse today and talking better. Brain tumor. UTI. Coronary artery disease. Hypertension. Diabetes. Plan to discharge tomorrow Clinical Quality Measures Admission Status Admission Dx Altered mental status. Lethargic. Brain tumor. UTI. Coronary artery disease. Hypertension. Diabetes. Nonverbal DVT/VTE Risk/Contraindication: Risk Factor Score Per Nursin RFS Level Per Nursing on Admit: 4+=Very High Contraindications-Pharm: Other *list below* THOMAS CLAIRE DO May 04, 2018 08:18
[2018-05-04] MEDS: CLOPIDOGREL 75 MG (PLAVIX) TABLET PO SCH (08:59)
[2018-05-04] MEDS: DEXAMETHASONE 4 MG/ML SDV (DECADRON) IV SCH (08:59)
[2018-05-04 10:38] LABS: BILIRUBIN,URINE NEGATIVE (NEGATIVE); CLARITY,URINE CLEAR; COLOR,URINE YELLOW; GLUCOSE, URINE (UA) NEGATIVE (NEGATIVE); KETONES,URINE NEGATIVE (NEGATIVE); LEUKOCYTE ESTERASE ,URINE 3+ (NEGATIVE); NITRITE,URINE NEGATIVE (NEGATIVE); PH,URINE 6.5 (5-9); PROTEIN,URINE NEGATIVE (NEGATIVE); UROBILINOGEN,URINE NORMAL (NORMAL)
[2018-05-04 10:47] LABS: BACTERIA,URINE TRACE /HPF
--- NOTE | 2018-05-04 14:53 | Occ Therapy Progress Note ---
Therapy Progress Note Attempted to see pt. Pt. asleep and has difficulty fully waking up. Groggy and continues to shut eyes. 1, visit [id number] SHANNAN BEARD OT May 04, 2018 14:53
[2018-05-04 15:45] VITALS: BP 168/73
[2018-05-04] MEDS: ATORVASTATIN 40 MG (LIPITOR) TABLET PO SCH (20:53)
[2018-05-04] MEDS: FAMOTIDINE 20 MG (PEPCID) TABLET PO SCH (20:53)
[2018-05-05] VITALS: BP 147/70
[2018-05-05] MEDS: inSUlin ASPART (NovoLOG) 1 UNIT/0.01 ML (CHARGE PER UNIT) SC SCH ×2 (05:44→11:19)
[2018-05-05] MEDS: CLOPIDOGREL 75 MG (PLAVIX) TABLET PO SCH (08:12)
--- NOTE | 2018-05-05 08:25 | Progress Note (SOAP) ---
Subjective Time Seen by a Provider: 08:24 Subjective/Events-last exam patient feeling better. Patient wants to go home. Patient pulled out IV area Patient refused blood tests. patient coherent and doing good Objective Exam Vital Signs Date Time Temp Pulse Resp B/P (MAP) Pulse Ox O2 Delivery O2 Flow Rate FiO2 05/05/18 00:00 97.9 63 20 147/70 (95) 95 Room Air 05/04/18 15:45 97.1 60 16 168/73 (104) 96 Room Air I & O 05/05/18 07:00 Intake Total 1720 ml Output Total 600 ml Balance 1120 ml Capillary Refill : Less Than 3 Seconds General Appearance: No Apparent Distress, WD/WN Neck: Full Range of Motion, Normal Inspection Respiratory: Chest Non Tender, Lungs Clear, No Accessory Muscle Use, No Respiratory Distress Cardiovascular: Regular Rate, Rhythm, No Murmur Gastrointestinal: non tender, soft Results Lab Laboratory Tests 05/04/18 10:18: Urine Color YELLOW, Urine Clarity CLEAR, Urine pH 6.5, Urine Specific [place] 1.010L, Urine Protein NEGATIVE, Urine Glucose (UA) NEGATIVE, Urine Ketones NEGATIVE, Urine Nitrite NEGATIVE, Urine Bilirubin NEGATIVE, Urine Urobilinogen NORMAL, Urine Leukocyte Esterase 3+H, Urine RBC (Auto) NEGATIVE, Urine RBC NONE , Urine WBC 10-25H, Urine Squamous Epithelial Cells 2-5, Urine Crystals NONE, Urine Bacteria TRACE, Urine Casts NONE, Urine Mucus NEGATIVE, Urine Culture Indicated YES 05/04/18 11:09: Glucometer 224H 05/04/18 15:48: Glucometer 331H 05/04/18 20:14: Glucometer 292H 05/05/18 05:24: Glucometer 164H Microbiology 04/29/18 Blood Culture - Preliminary, Resulted No growth 04/30/18 Urine Culture - Final, Complete Enterococcus faecalis Assessment/Plan Assessment/Plan Assess & Plan/Chief Complaint Acute mental status change. Renal insufficiency.. Patient verbal this morning but confused. Lethargic. Brain tumor. UTI. Coronary artery disease. Hypertension. Diabetes . 05/04/18. Patient able to converse today and talking better. Brain tumor. UTI. Coronary artery disease. Hypertension. Diabetes. Plan to discharge tomorrow. . 05/05/18. UTI resolved. Coronary artery disease. Hypertension. Diabetes. Brain tumor. Patient feeling better and wants to go home Patient discharged today Clinical Quality Measures Admission Status Admission Dx Altered mental status. Lethargic. Brain tumor. UTI. Coronary artery disease. Hypertension. Diabetes. Nonverbal DVT/VTE Risk/Contraindication: Risk Factor Score Per Nursin RFS Level Per Nursing on Admit: 4+=Very High Contraindications-Pharm: Other *list below* THOMAS CLAIRE DO May 05, 2018 08:25
--- NOTE | 2018-05-05 08:31 | D/C HH Face to Face Order ---
D/C Face to Face Orders Instructions for Patient Patient Instructions/FollowUp: office this Friday Physician to follow Patient: yes Discharge Diet for Home: ADA Diet Patient Data-Allergies,Ht & Wt Patient Allergies: Coded Allergies: morphine (Unverified Allergy, Mild, 11/08/13) "ACTS WEIRD" Penicillins (Unverified Allergy, Unknown, 02/02/08) Height (Feet): 5 Height (Inches): 6.00 Weight (Pounds): 202 Weight (Ounces): 9.0 Home Health Need/Face to Face Date of Face to Face: May 05, 2018 Clinical Findings: Generalized weakness and fatigue I have seen Pt [id number]: Yes Discharged To: SNU Diagnosis/Conditions: brain tumor. UTI. Weakness. Hypertension. Diabetes. Coronary artery disease Patient is Homebound due to: Flash fall risk due to instabilty Homebound Status Due to the above stated illness, injury or surgical procedure (medical condition or diagnosis) and associated clinical findings, the patient is homebound because of his/her inability to leave home except with aid of a supportive device and/or person AND leaving the home requires a considerable and taxing effort or is medically contraindicated. Pt req the following assistanc: Wheelchair Home Health Nursing Orders Home Health Services Order: Physical Therapy-Evaluate & Treat Home Health Infusion Therapy Line Start Date: Apr 29, 2018 Line Start Time: 2300 Line Type: Peripheral IV Site Location: Hand Certify Stmt I certify that this patient is under my care and that I, a nurse practitioner or a physician; a assistant project manager working with me, had a face to face encounter that - meets the physician face to face encounter requirements with this patient as dated. THOMAS CLAIRE DO May 05, 2018 08:31
[2018-05-05 08:32] VITALS: BP 133/81
--- NOTE | 2018-05-05 09:12 | Discharge Inst-Skilled Nursing ---
Discharge Inst-Skilled NF Patient Instructions Patient Problems: weakness confusion history diabetes coronary artery disease brain tumor Consult/Follow Up/Orders Skilled NF Admit to: [facility] Certification (SNF) I certify that SNF services are required to be given on an inpatient basis because of the above named patient's need for nursing home care on a continuing basis for the conditions(s) for which he/she was receiving inpatient hospital services prior to his/her transfer to the SNF. [facility] Facility Order: Nursing Services, C[facility] Upholsterer-Evaluate & Treat, Physical Therapy-Evaluate & Treat Discharge Diet: ADA Diet New & Resume Previous Orders Eugenio Claire May 05, 2018 09:10 EUGENIO CLAIRE DO May 05, 2018 09:12
[2018-05-05] MEDS: 1/2 NS IV SOLUTION 1,000 ML IV SCH (10:13)
[2018-05-05 15:59] VITALS: BP 133/81
--- NOTE | 2018-05-06 07:48 | Discharge Summary ---
Diagnosis/Chief Complaint Date of Admission Apr 29, 2018 at 18:50 Date of Discharge May 05, 2018 at 16:01 Discharge Date: May 05, 2018 Discharge Time: 07:45 Discharge Diagnosis Acute mental status change. Renal insufficiency. Diabetes. UTI. Enterococcus faecilas and Proteus mirabilis with UTI. Brain tumor. C. difficile colitis. Dehydration. Hypertension. Coronary artery disease Reason Hospital Visit [facility] is a [facility] of [facility]. Patient has been lethargic the last few days and somnolent. Patient not able to speak in the emergency room. Patient running an elevated temperature of 101. Patient has a history of brain tumor. Patient seen by neurologist and stated that the brain tumor was getting bigger by MRI. Patient has altered mental status this morning. Patient can mention her name but not able to give any history or talk. Patient has renal insufficiency. UA shows white blood cells needs to have a culture done. Patient lethargic. Patient not talking much. Patient is a known diabetic. Patient has coronary artery disease. Patient has history of hypertension Discharge Summary Consultations Pulmonology Discharge Physical Examination Allergies: Coded Allergies: morphine (Unverified Allergy, Mild, 11/08/13) "ACTS WEIRD" Penicillins (Unverified Allergy, Unknown, 02/02/08) Vitals & I&Os Vital Signs Date Time Temp Pulse Resp B/P (MAP) Pulse Ox O2 Delivery O2 Flow Rate FiO2 05/05/18 15:59 60 18 133/81 96 Room Air 05/05/18 08:32 99.1 04/30/18 12:00 0.50 Hospital Course Patient mental status didn't improve with receiving Decadron for brain tumor and became more alert Labs (last 24 hrs) Laboratory Tests 04/29/18 16:18: Glucometer 200H 04/29/18 16:20: White Blood Count 15.0H, Red Blood Count 4.37, Hemoglobin 12.9, Hematocrit 40, Mean Corpuscular Volume 92, Mean Corpuscular Hemoglobin 30, Mean Corpuscular Hemoglobin Concent 32, Red Cell Distribution Width 15.0H, Platelet Count 456H, Mean Platelet Volume 10.5H, Neutrophils (%) (Auto) 75, Lymphocytes (%) (Auto) 18 , Monocytes (%) (Auto) 7, Eosinophils (%) (Auto) 0, Basophils (%) (Auto) 0, Neutrophils # (Auto) 11.2H, Lymphocytes # (Auto) 2.6, Monocytes # (Auto) 1.1H, Eosinophils # (Auto) 0.0, Basophils # (Auto) 0.0, Neutrophils % (Manual) 74, Lymphocytes % (Manual) 16, Monocytes % (Manual) 6, Reactive Lymphocytes 4, Blood Morphology Comment NORMAL, Prothrombin Time 14.2, INR Comment 1.1, Activated Partial Thromboplast Time 31, Sodium Level 149H, Potassium Level 4.1, Chloride Level 116H, Carbon Dioxide Level 23, Anion Gap 10, Blood Urea Nitrogen 25H, Creatinine 1.37H, Estimat Glomerular Filtration Rate 38, BUN/Creatinine Ratio 18, Glucose Level 209H, Lactic Acid Level 1.32, Calcium Level 9.7, Corrected Calcium 9.8, Total Bilirubin 0.6, Aspartate Amino Transf (AST/SGOT) 13 , Alanine Aminotransferase (ALT/SGPT) 9, Alkaline Phosphatase 73, Total Protein 7.5, Albumin 3.9 04/29/18 16:30: Urine Color YELLOW, Urine Clarity VERY CLOUDYH, Urine pH 5, Urine Specific [place] 1.015L, Urine Protein 3+H, Urine Glucose (UA) NEGATIVE, Urine Ketones 1+ H, Urine Nitrite NEGATIVE, Urine Bilirubin NEGATIVE, Urine Urobilinogen NORMAL, Urine Leukocyte Esterase 3+H, Urine RBC (Auto) 5+H, Urine RBC NONE, Urine WBC 50 -100H, Urine Squamous Epithelial Cells >50H, Urine Crystals NONE, Urine Bacteria FEWH, Urine Casts NONE, Urine Mucus NEGATIVE, Urine Culture Indicated NO 04/29/18 18:50: Lab Scanned Report Referred Lab Report 04/29/18 21:39: Glucometer 175H 04/30/18 03:21: White Blood Count 12.5H, Red Blood Count 4.14L, Hemoglobin 12.1, Hematocrit 39, Mean Corpuscular Volume 94, Mean Corpuscular Hemoglobin 29, Mean Corpuscular Hemoglobin Concent 31L, Red Cell Distribution Width 14.8H, Platelet Count 340, Mean Platelet Volume 10.0, Neutrophils (%) (Auto) 65, Lymphocytes (%) (Auto) 25 , Monocytes (%) (Auto) 8, Eosinophils (%) (Auto) 1, Basophils (%) (Auto) 0, Neutrophils # (Auto) 8.2H, Lymphocytes # (Auto) 3.2, Monocytes # (Auto) 1.0, Eosinophils # (Auto) 0.1, Basophils # (Auto) 0.1, Sodium Level 148H, Potassium Level 3.8, Chloride Level 119H, Carbon Dioxide Level 20L, Anion Gap 9, Blood Urea Nitrogen 19H, Creatinine 0.94, Estimat Glomerular Filtration Rate 59, BUN/ Creatinine Ratio 20, Glucose Level 113H, Calcium Level 9.2, Corrected Calcium 9.4, Phosphorus Level 2.8, Magnesium Level 2.1, Total Bilirubin 0.5, Aspartate Amino Transf (AST/SGOT) 11, Alanine Aminotransferase (ALT/SGPT) 9, Alkaline Phosphatase 66, Total Protein 6.8, Albumin 3.7 04/30/18 09:46: Urine Color YELLOW, Urine Clarity CLEAR, Urine pH 6, Urine Specific [place] 1.010L, Urine Protein NEGATIVE, Urine Glucose (UA) NEGATIVE, Urine Ketones NEGATIVE, Urine Nitrite NEGATIVE, Urine Bilirubin NEGATIVE, Urine Urobilinogen NORMAL, Urine Leukocyte Esterase 2+H, Urine RBC (Auto) NEGATIVE, Urine RBC RARE , Urine WBC 10-25H, Urine Squamous Epithelial Cells 2-5, Urine Renal Epithelial Cells NONE, Urine Crystals NONE, Urine Bacteria TRACE, Urine Casts PRESENT, Urine Hyaline Casts 2-5H, Urine Mucus SMALLH, Urine Culture Indicated YES 04/30/18 11:52: Glucometer 89 04/30/18 16:27: Glucometer 84 04/30/18 21:03: Glucometer 114H 05/01/18 05:20: Glucometer 75 05/01/18 06:25: White Blood Count 9.8, Red Blood Count 3.72L, Hemoglobin 11.3L, Hematocrit 34L, Mean Corpuscular Volume 91, Mean Corpuscular Hemoglobin 30, Mean Corpuscular Hemoglobin Concent 33, Red Cell Distribution Width 13.6, Platelet Count 251, Mean Platelet Volume 10.4, Neutrophils (%) (Auto) 70, Lymphocytes (%) (Auto) 22 , Monocytes (%) (Auto) 6, Eosinophils (%) (Auto) 2, Basophils (%) (Auto) 0, Neutrophils # (Auto) 6.9, Lymphocytes # (Auto) 2.2, Monocytes # (Auto) 0.6, Eosinophils # (Auto) 0.2, Basophils # (Auto) 0.0, Sodium Level 137, Potassium Level 3.3L, Chloride Level 110H, Carbon Dioxide Level 20L, Anion Gap 7, Blood Urea Nitrogen 10, Creatinine 0.78, Estimat Glomerular Filtration Rate > 60, BUN/ Creatinine Ratio 13, Glucose Level 71, Calcium Level 8.8, Phosphorus Level 2.8, Magnesium Level 1.7L 05/01/18 11:09: Glucometer 172H 05/01/18 16:26: Glucometer 226H 05/01/18 20:16: Glucometer 262H 05/02/18 05:08: Glucometer 186H 05/02/18 05:45: White Blood Count 6.7, Red Blood Count 4.00L, Hemoglobin 11.8, Hematocrit 35, Mean Corpuscular Volume 88, Mean Corpuscular Hemoglobin 30, Mean Corpuscular Hemoglobin Concent 34, Red Cell Distribution Width 13.1, Platelet Count 276, Mean Platelet Volume 10.7H, Neutrophils (%) (Auto) 80H, Lymphocytes (%) (Auto) 15, Monocytes (%) (Auto) 5, Eosinophils (%) (Auto) 0, Basophils (%) (Auto) 0, Neutrophils # (Auto) 5.4, Lymphocytes # (Auto) 1.0, Monocytes # (Auto) 0.3, Eosinophils # (Auto) 0.0, Basophils # (Auto) 0.0, Sodium Level 137, Potassium Level 4.0, Chloride Level 109H, Carbon Dioxide Level 16L, Anion Gap 12, Blood Urea Nitrogen 12, Creatinine 0.80, Estimat Glomerular Filtration Rate > 60, BUN/ Creatinine Ratio 15, Glucose Level 177H, Calcium Level 9.3, Phosphorus Level 2.8 , Magnesium Level 1.7L 05/02/18 11:16: Glucometer 228H 05/02/18 16:06: Glucometer 220H 05/02/18 20:18: Glucometer 249H 05/03/18 05:41: Glucometer 163H 05/03/18 06:15: White Blood Count 8.7, Red Blood Count 3.72L, Hemoglobin 11.3L, Hematocrit 33L, Mean Corpuscular Volume 88, Mean Corpuscular Hemoglobin 30, Mean Corpuscular Hemoglobin Concent 35, Red Cell Distribution Width 13.2, Platelet Count 284, Mean Platelet Volume 11.1H, Neutrophils (%) (Auto) 76H, Lymphocytes (%) (Auto) 19, Monocytes (%) (Auto) 6, Eosinophils (%) (Auto) 0, Basophils (%) (Auto) 0, Neutrophils # (Auto) 6.6, Lymphocytes # (Auto) 1.7, Monocytes # (Auto) 0.5, Eosinophils # (Auto) 0.0, Basophils # (Auto) 0.0, Sodium Level 139, Potassium Level 3.7, Chloride Level 108H, Carbon Dioxide Level 21, Anion Gap 10, Blood Urea Nitrogen 11, Creatinine 0.80, Estimat Glomerular Filtration Rate > 60, BUN/ Creatinine Ratio 14, Glucose Level 157H, Calcium Level 9.1, Phosphorus Level 2.6 , Magnesium Level 1.8 05/03/18 10:57: Glucometer 218H 05/03/18 15:56: Glucometer 210H 05/03/18 20:44: Glucometer 242H 05/04/18 05:43: Glucometer 127H 05/04/18 05:55: White Blood Count 9.7, Red Blood Count 3.77L, Hemoglobin 11.0L, Hematocrit 33L, Mean Corpuscular Volume 89, Mean Corpuscular Hemoglobin 29, Mean Corpuscular Hemoglobin Concent 33, Red Cell Distribution Width 13.4, Platelet Count 297, Mean Platelet Volume 10.9H, Neutrophils (%) (Auto) 70, Lymphocytes (%) (Auto) 24 , Monocytes (%) (Auto) 6, Eosinophils (%) (Auto) 0, Basophils (%) (Auto) 0, Neutrophils # (Auto) 6.7, Lymphocytes # (Auto) 2.3, Monocytes # (Auto) 0.6, Eosinophils # (Auto) 0.0, Basophils # (Auto) 0.0, Sodium Level 137, Potassium Level 3.8, Chloride Level 107, Carbon Dioxide Level 22, Anion Gap 8, Blood Urea Nitrogen 13, Creatinine 0.76, Estimat Glomerular Filtration Rate > 60, BUN/ Creatinine Ratio 17, Glucose Level 132H, Calcium Level 9.0, Phosphorus Level 2.8 , Magnesium Level 2.0 05/04/18 10:18: Urine Color YELLOW, Urine Clarity CLEAR, Urine pH 6.5, Urine Specific [place] 1.010L, Urine Protein NEGATIVE, Urine Glucose (UA) NEGATIVE, Urine Ketones NEGATIVE, Urine Nitrite NEGATIVE, Urine Bilirubin NEGATIVE, Urine Urobilinogen NORMAL, Urine Leukocyte Esterase 3+H, Urine RBC (Auto) NEGATIVE, Urine RBC NONE , Urine WBC 10-25H, Urine Squamous Epithelial Cells 2-5, Urine Crystals NONE, Urine Bacteria TRACE, Urine Casts NONE, Urine Mucus NEGATIVE, Urine Culture Indicated YES 05/04/18 11:09: Glucometer 224H 05/04/18 15:48: Glucometer 331H 05/04/18 20:14: Glucometer 292H 05/05/18 05:24: Glucometer 164H 05/05/18 10:57: Glucometer 203H Microbiology 04/29/18 Blood Culture - Final, Complete No growth 05/04/18 Urine Culture - Preliminary, Resulted Enterococcus faecalis Laboratory Tests 04/29/18 16:20 04/30/18 03:21 05/01/18 06:25 05/02/18 05:45 05/03/18 06:15 05/04/18 05:55 Pending Labs Microbiology Date/Time Source Procedure Growth Status 04/29/18 17:05 Peripheral Lt Hand Blood Culture - Final No growth Complete 04/29/18 16:20 Peripheral Rt Ac Blood Culture - Final No growth Complete 05/04/18 10:18 Urine Clean Catch Urine Culture - Preliminary Enterococcus faecalis Resulted 04/30/18 09:46 Urine Voided Urine Urine Culture - Final Enterococcus faecalis Complete 04/29/18 16:30 Urine Clean Catch Urine Culture - Final Proteus mirabilis Complete Laboratory Tests 04/29/18 16:18: Glucometer 200 04/29/18 16:20: White Blood Count 15.0, Red Blood Count 4.37, Hemoglobin 12.9, Hematocrit 40, Mean Corpuscular Volume 92, Mean Corpuscular Hemoglobin 30, Mean Corpuscular Hemoglobin Concent 32, Red Cell Distribution Width 15.0, Platelet Count 456, Mean Platelet Volume 10.5, Neutrophils (%) (Auto) 75, Lymphocytes (%) (Auto) 18 , Monocytes (%) (Auto) 7, Eosinophils (%) (Auto) 0, Basophils (%) (Auto) 0, Neutrophils # (Auto) 11.2, Lymphocytes # (Auto) 2.6, Monocytes # (Auto) 1.1, Eosinophils # (Auto) 0.0, Basophils # (Auto) 0.0, Neutrophils % (Manual) 74, Lymphocytes % (Manual) 16, Monocytes % (Manual) 6, Reactive Lymphocytes 4, Blood Morphology Comment NORMAL, Prothrombin Time 14.2, INR Comment 1.1, Activated Partial Thromboplast Time 31, Sodium Level 149, Potassium Level 4.1, Chloride Level 116, Carbon Dioxide Level 23, Anion Gap 10, Blood Urea Nitrogen 25, Creatinine 1.37, Estimat Glomerular Filtration Rate 38, BUN/Creatinine Ratio 18, Glucose Level 209, Lactic Acid Level 1.32, Calcium Level 9.7, Corrected Calcium 9.8, Total Bilirubin 0.6, Aspartate Amino Transf (AST/SGOT) 13 , Alanine Aminotransferase (ALT/SGPT) 9, Alkaline Phosphatase 73, Total Protein 7.5, Albumin 3.9 04/29/18 16:30: Urine Color YELLOW, Urine Clarity VERY CLOUDY, Urine pH 5, Urine Specific [place] 1.015, Urine Protein 3+, Urine Glucose (UA) NEGATIVE, Urine Ketones 1+, Urine Nitrite NEGATIVE, Urine Bilirubin NEGATIVE, Urine Urobilinogen NORMAL, Urine Leukocyte Esterase 3+, Urine RBC (Auto) 5+, Urine RBC NONE, Urine WBC 50- 100, Urine Squamous Epithelial Cells >50, Urine Crystals NONE, Urine Bacteria FEW, Urine Casts NONE, Urine Mucus NEGATIVE, Urine Culture Indicated NO 04/29/18 18:50: Lab Scanned Report Referred Lab Report 04/29/18 21:39: Glucometer 175 04/30/18 03:21: White Blood Count 12.5, Red Blood Count 4.14, Hemoglobin 12.1, Hematocrit 39, Mean Corpuscular Volume 94, Mean Corpuscular Hemoglobin 29, Mean Corpuscular Hemoglobin Concent 31, Red Cell Distribution Width 14.8, Platelet Count 340, Mean Platelet Volume 10.0, Neutrophils (%) (Auto) 65, Lymphocytes (%) (Auto) 25 , Monocytes (%) (Auto) 8, Eosinophils (%) (Auto) 1, Basophils (%) (Auto) 0, Neutrophils # (Auto) 8.2, Lymphocytes # (Auto) 3.2, Monocytes # (Auto) 1.0, Eosinophils # (Auto) 0.1, Basophils # (Auto) 0.1, Sodium Level 148, Potassium Level 3.8, Chloride Level 119, Carbon Dioxide Level 20, Anion Gap 9, Blood Urea Nitrogen 19, Creatinine 0.94, Estimat Glomerular Filtration Rate 59, BUN/ Creatinine Ratio 20, Glucose Level 113, Calcium Level 9.2, Corrected Calcium 9.4 , Phosphorus Level 2.8, Magnesium Level 2.1, Total Bilirubin 0.5, Aspartate Amino Transf (AST/SGOT) 11, Alanine Aminotransferase (ALT/SGPT) 9, Alkaline Phosphatase 66, Total Protein 6.8, Albumin 3.7 04/30/18 09:46: Urine Color YELLOW, Urine Clarity CLEAR, Urine pH 6, Urine Specific [place] 1.010, Urine Protein NEGATIVE, Urine Glucose (UA) NEGATIVE, Urine Ketones NEGATIVE, Urine Nitrite NEGATIVE, Urine Bilirubin NEGATIVE, Urine Urobilinogen NORMAL, Urine Leukocyte Esterase 2+, Urine RBC (Auto) NEGATIVE, Urine RBC RARE, Urine WBC 10-25, Urine Squamous Epithelial Cells 2-5, Urine Renal Epithelial Cells NONE, Urine Crystals NONE, Urine Bacteria TRACE, Urine Casts PRESENT, Urine Hyaline Casts 2-5, Urine Mucus SMALL, Urine Culture Indicated YES 04/30/18 11:52: Glucometer 89 04/30/18 16:27: Glucometer 84 04/30/18 21:03: Glucometer 114 05/01/18 05:20: Glucometer 75 05/01/18 06:25: White Blood Count 9.8, Red Blood Count 3.72, Hemoglobin 11.3, Hematocrit 34, Mean Corpuscular Volume 91, Mean Corpuscular Hemoglobin 30, Mean Corpuscular Hemoglobin Concent 33, Red Cell Distribution Width 13.6, Platelet Count 251, Mean Platelet Volume 10.4, Neutrophils (%) (Auto) 70, Lymphocytes (%) (Auto) 22 , Monocytes (%) (Auto) 6, Eosinophils (%) (Auto) 2, Basophils (%) (Auto) 0, Neutrophils # (Auto) 6.9, Lymphocytes # (Auto) 2.2, Monocytes # (Auto) 0.6, Eosinophils # (Auto) 0.2, Basophils # (Auto) 0.0, Sodium Level 137, Potassium Level 3.3, Chloride Level 110, Carbon Dioxide Level 20, Anion Gap 7, Blood Urea Nitrogen 10, Creatinine 0.78, Estimat Glomerular Filtration Rate > 60, BUN/ Creatinine Ratio 13, Glucose Level 71, Calcium Level 8.8, Phosphorus Level 2.8, Magnesium Level 1.7 05/01/18 11:09: Glucometer 172 05/01/18 16:26: Glucometer 226 05/01/18 20:16: Glucometer 262 05/02/18 05:08: Glucometer 186 05/02/18 05:45: White Blood Count 6.7, Red Blood Count 4.00, Hemoglobin 11.8, Hematocrit 35, Mean Corpuscular Volume 88, Mean Corpuscular Hemoglobin 30, Mean Corpuscular Hemoglobin Concent 34, Red Cell Distribution Width 13.1, Platelet Count 276, Mean Platelet Volume 10.7, Neutrophils (%) (Auto) 80, Lymphocytes (%) (Auto) 15 , Monocytes (%) (Auto) 5, Eosinophils (%) (Auto) 0, Basophils (%) (Auto) 0, Neutrophils # (Auto) 5.4, Lymphocytes # (Auto) 1.0, Monocytes # (Auto) 0.3, Eosinophils # (Auto) 0.0, Basophils # (Auto) 0.0, Sodium Level 137, Potassium Level 4.0, Chloride Level 109, Carbon Dioxide Level 16, Anion Gap 12, Blood Urea Nitrogen 12, Creatinine 0.80, Estimat Glomerular Filtration Rate > 60, BUN/ Creatinine Ratio 15, Glucose Level 177, Calcium Level 9.3, Phosphorus Level 2.8 , Magnesium Level 1.7 05/02/18 11:16: Glucometer 228 05/02/18 16:06: Glucometer 220 05/02/18 20:18: Glucometer 249 05/03/18 05:41: Glucometer 163 05/03/18 06:15: White Blood Count 8.7, Red Blood Count 3.72, Hemoglobin 11.3, Hematocrit 33, Mean Corpuscular Volume 88, Mean Corpuscular Hemoglobin 30, Mean Corpuscular Hemoglobin Concent 35, Red Cell Distribution Width 13.2, Platelet Count 284, Mean Platelet Volume 11.1, Neutrophils (%) (Auto) 76, Lymphocytes (%) (Auto) 19 , Monocytes (%) (Auto) 6, Eosinophils (%) (Auto) 0, Basophils (%) (Auto) 0, Neutrophils # (Auto) 6.6, Lymphocytes # (Auto) 1.7, Monocytes # (Auto) 0.5, Eosinophils # (Auto) 0.0, Basophils # (Auto) 0.0, Sodium Level 139, Potassium Level 3.7, Chloride Level 108, Carbon Dioxide Level 21, Anion Gap 10, Blood Urea Nitrogen 11, Creatinine 0.80, Estimat Glomerular Filtration Rate > 60, BUN/ Creatinine Ratio 14, Glucose Level 157, Calcium Level 9.1, Phosphorus Level 2.6 , Magnesium Level 1.8 05/03/18 10:57: Glucometer 218 05/03/18 15:56: Glucometer 210 05/03/18 20:44: Glucometer 242 05/04/18 05:43: Glucometer 127 05/04/18 05:55: White Blood Count 9.7, Red Blood Count 3.77, Hemoglobin 11.0, Hematocrit 33, Mean Corpuscular Volume 89, Mean Corpuscular Hemoglobin 29, Mean Corpuscular Hemoglobin Concent 33, Red Cell Distribution Width 13.4, Platelet Count 297, Mean Platelet Volume 10.9, Neutrophils (%) (Auto) 70, Lymphocytes (%) (Auto) 24 , Monocytes (%) (Auto) 6, Eosinophils (%) (Auto) 0, Basophils (%) (Auto) 0, Neutrophils # (Auto) 6.7, Lymphocytes # (Auto) 2.3, Monocytes # (Auto) 0.6, Eosinophils # (Auto) 0.0, Basophils # (Auto) 0.0, Sodium Level 137, Potassium Level 3.8, Chloride Level 107, Carbon Dioxide Level 22, Anion Gap 8, Blood Urea Nitrogen 13, Creatinine 0.76, Estimat Glomerular Filtration Rate > 60, BUN/ Creatinine Ratio 17, Glucose Level 132, Calcium Level 9.0, Phosphorus Level 2.8 , Magnesium Level 2.0 05/04/18 10:18: Urine Color YELLOW, Urine Clarity CLEAR, Urine pH 6.5, Urine Specific [place] 1.010, Urine Protein NEGATIVE, Urine Glucose (UA) NEGATIVE, Urine Ketones NEGATIVE, Urine Nitrite NEGATIVE, Urine Bilirubin NEGATIVE, Urine Urobilinogen NORMAL, Urine Leukocyte Esterase 3+, Urine RBC (Auto) NEGATIVE, Urine RBC NONE, Urine WBC 10-25, Urine Squamous Epithelial Cells 2-5, Urine Crystals NONE, Urine Bacteria TRACE, Urine Casts NONE, Urine Mucus NEGATIVE, Urine Culture Indicated YES 05/04/18 11:09: Glucometer 224 05/04/18 15:48: Glucometer 331 05/04/18 20:14: Glucometer 292 05/05/18 05:24: Glucometer 164 05/05/18 10:57: Glucometer 203 Discussion & Recommendations Patient transferred back to [facility]. Patient wanted discharge. Patient pulled out IV. Patient refused blood tests. Patient alert and coherent Discharge Home Medications: Active Scripts Active Reported Tussin (Guaifenesin) 100 Mg/5 Ml Liquid 5 Ml PO Q4H PRN Tylenol Extra Strength (Acetaminophen) 500 Mg Tablet 500 Mg PO Q4H PRN Spironolactone 25 Mg Tablet 25 Mg PO DAILY Phenergan (Promethazine HCl) 25 Mg Supp.rect 25 Mg RC Q8H PRN Capsaicin 42.5 Gm Cream..g. TP Q4H PRN Amlodipine Besylate 10 Mg Tablet 10 Mg PO DAILY HOLD AND NOTIFY PHYSICIAN IF SBP<100 OR HR<60 Glimepiride 1 Mg Tablet 1 Mg PO DAILY Acetaminophen 650 Mg Supp.rect 650 Mg RC Q6H PRN Escitalopram Oxalate 20 Mg Tablet 20 Mg PO DAILY [Barrier Cream] TOP BID APPLY TO BILATERAL BUTTOCKS FOR PREVENTATIVE MEASURES Zofran (Ondansetron HCl) 4 Mg Tab 4 Mg PO Q6H PRN Magnesium Oxide 400 Mg Tablet 400 Mg PO BID Feosol (Ferrous Sulfate) 325 Mg Tablet 325 Mg PO DAILY Benadryl (Diphenhydramine HCl) 25 Mg Capsule 25 Mg PO Q8H PRN Clonazepam 0.5 Mg Tab.rapdis 0.5 Mg PO HS Ventolin Hfa (Albuterol Sulfate) 18 Gm Hfa.aer.ad 2 Puff IH Q8H PRN Tramadol HCl 50 Mg Tablet 50 Mg PO Q12H PRN Milk of Magnesia (Magnesium Hydroxide) 400 Mg/5 Ml Oral.susp 30 Ml PO Q12H PRN Clopidogrel (Clopidogrel Bisulfate) 75 Mg Tablet 75 Mg PO DAILY Atorvastatin Calcium 40 Mg Tablet 40 Mg PO HS Instructions to patient/family Please see electronic discharge instructions given to patient. Clinical Quality Measures DVT/VTE Risk/Contraindication: Risk Factor Score Per Nursin RFS Level Per Nursing on Admit: 4+=Very High Contraindications-Pharm: Other *list below* THOMAS CLAIRE DO May 06, 2018 07:48
--- NOTE | 2018-05-11 13:47 | Physician Query Clarification ---
PQ-Conflicting Diagnosis Admission/Discharge Admission Date: Apr 29, 2018 at 18:50 Discharge Date: May 05, 2018 at 16:01 The medical record reflects the following clinical scenario: History/Risk Factors: C. Diff colitis, Brain tumor, DM2, HTN w/CKD, CAD Clinical Findings: T100.1, P104, R 20, WBC 15.0 Lactic 1.32, AMS Treatment: Cefepime, Ceftriaxone Question: Do you agree with the impression of the Sepsis per and Dr. Jones? Please document a response below. PHYSICIAN RESPONSE Do you agree w/Consulting Dx?: Yes In responding to this query, please exercise your independent professional judgment. The purpose of this communication is to more accurately reflect the complexity of your patients condition. The fact that a question is asked does not imply that any particular answer is desired or expected. Thank you for your timely response to this clarification. Requestors name: Pedro THIS PHYSICIAN QUERY FORM IS A PERMANENT PART OF THE MEDICAL RECORD PEDRO SHARPE May 11, 2018 13:47 THOMAS CLAIRE DO May 11, 2018 18:42
== END 2018-05-05 16:01 | DRG 871 ==
LOC: EDUNIT# 16:13 → ER 16:14 → ICU 18:50 → 4TH 04-30 12:50
PROVIDERS: ADMIT Family Medicine; ATTEND Family Medicine
DX: A41.9 Sepsis, unspecified organism (principal); N30.00 Acute cystitis without hematuria; G93.41 Metabolic encephalopathy; R41.0 Disorientation, unspecified; D49.6 Neoplasm of unspecified behavior of brain; E86.0 Dehydration; E87.0 Hyperosmolality and hypernatremia; E66.01 Morbid (severe) obesity due to excess calories; I12.9 Hypertensive chronic kidney disease with stage 1 through stage 4 chronic kidney disease, or unspecified chronic kidney disease; N18.9 Chronic kidney disease, unspecified; E11.9 Type 2 diabetes mellitus without complications; F17.210 Nicotine dependence, cigarettes, uncomplicated; J44.9 Chronic obstructive pulmonary disease, unspecified; I25.10 Atherosclerotic heart disease of native coronary artery without angina pectoris; E78.00 Pure hypercholesterolemia, unspecified; L89.620 Pressure ulcer of left heel, unstageable; L89.150 Pressure ulcer of sacral region, unstageable; K59.09 Other constipation; M54.9 Dorsalgia, unspecified; M54.2 Cervicalgia; R26.81 Unsteadiness on feet; R53.83 Other fatigue; F32.9 Major depressive disorder, single episode, unspecified; M19.91 Primary osteoarthritis, unspecified site; Z68.32 Body mass index [BMI] 32.0-32.9, adult; Z86.73 Personal history of transient ischemic attack (TIA), and cerebral infarction without residual deficits; Z87.19 Personal history of other diseases of the digestive system; B95.2 Enterococcus as the cause of diseases classified elsewhere; B96.4 Proteus (mirabilis) (morganii) as the cause of diseases classified elsewhere; A04.72 Enterocolitis due to Clostridium difficile, not specified as recurrent
CPT/HCPCS: 36415; 51702; 70450; 71045; 80048; 80053; 81000; 82962; 83605; 83735; 84100; 85007; 85025; 85027; 85610; 85730; 87040; 87077; 87088; 87186; 96361; 96374

== ENCOUNTER → 2018-07-03 | Outpatient (CLI) | payer MEDICARE, MEDICAID ==
[~2018-07-03] MED LIST changes: +ACET-2267 PO; +ACET650S15 RC; +AMLO10TA6 PO; +CAPS42.58 TP; +GLIM1TAB PO; +GUAI100L36 PO; +METR-197 PO; -METR500T21 PO; +PROM25SU43 RC; +SPIR25TA5 PO
--- NOTE | 2018-07-03 11:17 | Diagnostic Imaging Report ---
INDICATION: Back pain. TIME OF EXAM: 10:16 a.m. FINDINGS: Curvature and alignment of the thoracic spine is normal. Marked multilevel degenerative disc disease is seen with anterior osteophyte formation throughout the thoracic spine. Vertebral body heights appear to be fairly well maintained. No definite acute compression fracture is identified. The pedicles and paraspinous line are intact. IMPRESSION: Thoracic spondylosis. No acute bony abnormality is detected. Dictated by: Dictated on workstation # [id number]
== END ==
LOC: RAD 09:18
PROVIDERS: ATTEND Family Medicine
DX: M47.814 Spondylosis without myelopathy or radiculopathy, thoracic region (principal)
CPT/HCPCS: 72072

== ENCOUNTER → 2018-07-09 | Outpatient (CLI) | payer MEDICARE, MEDICAID | LOC: WOUNDCARE 09:36 | PROVIDERS: ATTEND Orthopaedic Surgery Hand Surgery | DX: L89.153 Pressure ulcer of sacral region, stage 3 (principal); I73.9 Peripheral vascular disease, unspecified | CPT/HCPCS: 11042 ==

== ENCOUNTER → 2018-07-23 | Outpatient (CLI) | payer MEDICARE, MEDICAID | LOC: WOUNDCARE 10:15 | PROVIDERS: ATTEND Orthopaedic Surgery Hand Surgery | DX: L89.153 Pressure ulcer of sacral region, stage 3 (principal); I73.9 Peripheral vascular disease, unspecified | CPT/HCPCS: 11042 ==

== ENCOUNTER → 2018-08-05 | Outpatient (CLI) | payer MEDICARE, MEDICAID ==
--- NOTE | 2018-08-05 16:49 | Diagnostic Imaging Report ---
INDICATION: Pain in the right fifth toe. COMPARISON STUDY: None. FINDINGS: Three views of the right foot demonstrate osteopenia. No fracture or subluxation is present. Mild degenerative change is present in the first interphalangeal joint. Small plantar spurs are present. Calcification is seen in the dorsalis pedis artery. IMPRESSION: There are no acute findings to the right foot. Dictated by: Dictated on workstation # [id number]
== END ==
LOC: RAD 15:56
PROVIDERS: ATTEND Family Medicine
DX: M79.674 Pain in right toe(s) (principal); M79.671 Pain in right foot
CPT/HCPCS: 73630

== ENCOUNTER → 2018-08-20 | Outpatient (CLI) | payer MEDICARE, MEDICAID | LOC: WOUNDCARE 10:15 | PROVIDERS: ATTEND Nurse Practitioner | DX: L89.153 Pressure ulcer of sacral region, stage 3 (principal); I73.9 Peripheral vascular disease, unspecified | CPT/HCPCS: 99212 ==

== ENCOUNTER → 2018-09-03 | Outpatient (CLI) | payer MEDICARE, MEDICAID ==
[~2018-09-03] MED LIST changes: -AMLO10TA6 PO; +AMLO10TA7 PO; -AMLO5TAB7 PO; +AMLO5TAB9 PO; +METR-145 PO; -METR-197 PO
== END ==
LOC: WOUNDCARE 09:57
PROVIDERS: ATTEND Nurse Practitioner
DX: L89.153 Pressure ulcer of sacral region, stage 3 (principal); I73.9 Peripheral vascular disease, unspecified
CPT/HCPCS: 11042

== ENCOUNTER → 2018-09-24 | Outpatient (CLI) | payer MEDICARE, MEDICAID | LOC: WOUNDCARE 10:22 | PROVIDERS: ATTEND Nurse Practitioner | DX: L89.153 Pressure ulcer of sacral region, stage 3 (principal); I73.9 Peripheral vascular disease, unspecified | CPT/HCPCS: 99213 ==

== ENCOUNTER → 2018-10-08 | Outpatient (CLI) | payer MEDICARE, MEDICAID | LOC: WOUNDCARE 10:23 | PROVIDERS: ATTEND Nurse Practitioner | DX: L89.153 Pressure ulcer of sacral region, stage 3 (principal); I73.9 Peripheral vascular disease, unspecified | CPT/HCPCS: 99213 ==

== ENCOUNTER → 2018-10-22 | Outpatient (CLI) | payer MEDICARE, MEDICAID | LOC: WOUNDCARE 10:28 | PROVIDERS: ATTEND Nurse Practitioner | DX: L89.153 Pressure ulcer of sacral region, stage 3 (principal); I73.9 Peripheral vascular disease, unspecified | CPT/HCPCS: 99213 ==

== ENCOUNTER → 2018-11-05 | Outpatient (CLI) | payer MEDICARE, MEDICAID | LOC: WOUNDCARE 10:33 | PROVIDERS: ATTEND Nurse Practitioner | DX: L89.153 Pressure ulcer of sacral region, stage 3 (principal); I73.9 Peripheral vascular disease, unspecified | CPT/HCPCS: 99212 ==

== ENCOUNTER → 2018-11-12 | Outpatient (CLI) | payer MEDICARE, MEDICAID | LOC: WOUNDCARE 10:23 | PROVIDERS: ATTEND Nurse Practitioner | DX: L89.153 Pressure ulcer of sacral region, stage 3 (principal); I73.9 Peripheral vascular disease, unspecified | CPT/HCPCS: 99212 ==

== ENCOUNTER → 2018-11-24 | Outpatient (CLI) | payer MEDICARE, MEDICAID | LOC: WOUNDCARE 08:05 | PROVIDERS: ATTEND Nurse Practitioner | DX: L89.153 Pressure ulcer of sacral region, stage 3 (principal); I73.9 Peripheral vascular disease, unspecified | CPT/HCPCS: 99212 ==

== ENCOUNTER → 2019-05-25 | Outpatient (CLI) | payer MEDICARE, MEDICAID ==
[~2019-05-25] MED LIST changes: +CAPS42.513 TP; -CAPS42.58 TP
== END ==
LOC: RAD 14:14
PROVIDERS: ATTEND Family Medicine
DX: M54.5 Low back pain (principal); Z53.8 Procedure and treatment not carried out for other reasons

== ENCOUNTER → 2019-05-26 | Outpatient (CLI) | payer MEDICARE, MEDICAID ==
--- NOTE | 2019-05-26 17:01 | Diagnostic Imaging Report ---
INDICATION: Low back pain. Lumbar spine. FINDINGS: AP and lateral views of the lumbar spine show normal alignment. There are no compression fractures. There is disc space narrowing at T12-L1, L1-L2, L3-L4, L4-L5 and L5-S1. There are small osteophytes forming anteriorly. There is calcific atherosclerosis of the aorta. IMPRESSION: Spondylosis deformans with degenerative disc changes. There is no acute abnormality seen in the lumbar spine. Dictated by: Dictated on workstation # [id number]
== END ==
LOC: RAD 16:01
PROVIDERS: ATTEND Family Medicine
DX: M47.816 Spondylosis without myelopathy or radiculopathy, lumbar region (principal); M51.36 Other intervertebral disc degeneration, lumbar region
CPT/HCPCS: 72100

== ENCOUNTER → 2019-09-20 | Outpatient (CLI) | payer MEDICARE, MEDICAID ==
[~2019-09-20] MED LIST changes: +ASCO-262 PO; -CLON0.5T13 PO; +CLON0.5T4 PO; -GLIM1TAB PO; +GLIM1TAB2 PO; +HYDR-3812 PO; +LIDO5CRE24 TP; +LOPE-134 PO; -MAGN400T6 PO; +MAGN400T8 PO; +MULT-10 PO; +SERT50TA9 PO; +SODI45SP9 NS; -TRAM50TA2 PO; +ZINC28PA TP
[2019-09-20 16:48] LABS: BASOPHILS % (AUTO) 0 % (0-10); EOSINOPHILS # (AUTO) 0.1 10^3/uL (0.0-0.3); EOSINOPHILS % (AUTO) 1 % (0-10); HEMATOCRIT 41 % (35-52); HEMOGLOBIN 13.5 G/DL (11.5-16.0); LYMPHOCYTES # (AUTO) 1.7 X 10^3 (1.0-4.0); LYMPHOCYTES % (AUTO) 14 % (12-44); MEAN CORPUSCULAR HEMOGLOBIN 29 PG (25-34); MEAN CORPUSCULAR HGB CONC 33 G/DL (32-36); MEAN CORPUSCULAR VOLUME 88 FL (80-99); MEAN PLATELET VOLUME 10.1 FL (7.4-10.4); MONOCYTES # (AUTO) 0.7 X 10^3 (0.0-1.0); MONOCYTES % (AUTO) 6 % (0-12); NEUTROPHILS # (AUTO) 9.9 X 10^3 (1.8-7.8); NEUTROPHILS % (AUTO) 79 % (42-75); PLATELET COUNT 443 10^3/uL (130-400); RED CELL DISTRIBUTION WIDTH 15.6 % (10.0-14.5); WHITE BLOOD COUNT 12.5 10^3/uL (4.3-11.0)
--- NOTE | 2019-09-20 17:02 | Diagnostic Imaging Report ---
INDICATION: Cough and congestion. EXAMINATION: Portable chest at 4:59 PM. FINDINGS: The heart size and pulmonary vascularity are normal. The lungs are clear. There are no effusions or pneumothoraces. IMPRESSION: Negative chest. Dictated by: Dictated on workstation # [id number]
== END ==
LOC: LAB 16:35
PROVIDERS: ATTEND Family Medicine
DX: R05 Cough (principal); R06.2 Wheezing
CPT/HCPCS: 36415; 71045; 85025

== ENCOUNTER → 2019-09-24 | Outpatient (CLI) | payer MEDICARE, MEDICAID ==
[~2019-09-24] MED LIST changes: -GLIM1TAB2 PO; +GLIM1TAB4 PO; +ONDA-105 PO; -ONDA4TAB10 PO
[2019-09-24 10:33] LABS: BASOPHILS # (AUTO) 0.1 10^3/uL (0.0-0.1); BASOPHILS % (AUTO) 0 % (0-10); EOSINOPHILS # (AUTO) 0.1 10^3/uL (0.0-0.3); EOSINOPHILS % (AUTO) 0 % (0-10); HEMATOCRIT 29 % (35-52); HEMOGLOBIN 9.2 G/DL (11.5-16.0); LYMPHOCYTES # (AUTO) 3.5 X 10^3 (1.0-4.0); LYMPHOCYTES % (AUTO) 19 % (12-44); MEAN CORPUSCULAR HEMOGLOBIN 29 PG (25-34); MEAN CORPUSCULAR HGB CONC 32 G/DL (32-36); MEAN CORPUSCULAR VOLUME 89 FL (80-99); MEAN PLATELET VOLUME 10.5 FL (7.4-10.4); MONOCYTES # (AUTO) 1.6 X 10^3 (0.0-1.0); MONOCYTES % (AUTO) 9 % (0-12); NEUTROPHILS # (AUTO) 13.4 X 10^3 (1.8-7.8); NEUTROPHILS % (AUTO) 72 % (42-75); PLATELET COUNT 461 10^3/uL (130-400); RED CELL DISTRIBUTION WIDTH 15.1 % (10.0-14.5); WHITE BLOOD COUNT 18.7 10^3/uL (4.3-11.0)
--- NOTE | 2019-09-24 10:55 | Diagnostic Imaging Report ---
Indication: Cough and congestion Portable chest 10:38 AM Heart size and pulmonary vascularity are normal. Lungs are clear. There are no effusions or pneumothoraces. IMPRESSION: Negative chest Dictated by: Dictated on workstation # [id number]
[2019-09-24 11:11] LABS: LYMPHOCYTES % (MANUAL) 25 %; MONOCYTES % (MANUAL) 5 %; NEUTROPHILS % (MANUAL) 70 %
[2019-09-24 11:12] LABS: POIKILOCYTOSIS SLIGHT; POLYCHROMASIA SLIGHT
[2019-09-24 11:13] LABS: ACANTHOCYTES SLIGHT
== END ==
LOC: RAD 10:12
PROVIDERS: ATTEND Family Medicine
DX: R05 Cough (principal); R09.89 Other specified symptoms and signs involving the circulatory and respiratory systems
CPT/HCPCS: 36415; 71045; 85007; 85027

== ENCOUNTER → 2021-04-13 | Outpatient (CLI) | payer MEDICARE, MEDICAID ==
[~2021-04-13] MED LIST changes: +ACHD5005 PO; +AMLO-250 PO; +AMLO-251 PO; -AMLO10TA7 PO; -AMLO5TAB9 PO; -CAPS42.513 TP; +CAPS42.514 TP; +ESCI-2 PO; -ESCI10TA55 PO; +ESCI20TA39 PO; -ESCI20TA45 PO; -HYDR-3812 PO; +MIRT-68 PO; -MIRT15TA6 PO; -MULT-24 PO; +MULT-580 PO; +SERT-413 PO; -SERT50TA9 PO
--- NOTE | 2021-04-13 11:13 | ST Mod Barium Swallow ---
Speech Evaluation-General Medical Diagnosis dysphagia Onset Date: Apr 13, 2021 Therapy Diagnosis Therapy Diagnosis: oropharyngeal dysphagia Precautions Precautions: Fall Precautions/Isolations: Aspiration Referral Referring Physician: Eugenio Dennison Reason for Referral: Consult Pt was seen for modified barium swallow study. Concerns regarding coughing during mealtime. Medical History Pertinent Medical History: Arthritis, CAD, COPD, CVA, DM, HTN, Renal Insufficiency, Smoking HTN, CVA, COPD Current History oropharyngeal dysphagia Reviewed History: Yes Social History Home: Assisted Living Current Living Status: Speech Mod Barium Swallow Prior Level of Function Pt reported puree diet with thin liquids via straw. Pt reported coughing during mealtimes and rare choking events. Pt reported vomiting after mealtime x1, but otherwise no emesis concerns. Oral Motor Skills Dentition Natural Dentures: Partial Upper, Partial Lower Dentition Comments: Pt missing most teeth; does not have dentures Lingual Protrusion: Normal Lingual ROM: Normal Lingual Strength: Abnormal Velum: Normal Volitional Dry Swallow: Yes Gag Reflex: Yes Voluntary Cough Comments: did not assess did not assess Textures-Lateral View Lateral View Food Presentation: Thin Liquid via Straw Oral Phase Labial Closure: No Impairment (WFL) Bolus Formation Pooling L/R: No Impairment (WFL) Bolus Formation Placement: No Impairment (WFL) Mastication Rotary Chew: Severe Impairment effortful chewing and increased mastication time >3 minutes for small bite A/P Lingual Propulsion: No Impairment (WFL) Lingual Movement: No Impairment (WFL) Oral Phase Residue: No Impairment (WFL) no oral residue observed for mech soft and puree textures Pharyngeal Phase Swallow Response: No Impairment (WFL) Base of Tongue: No Impairment (WFL) Epiglottic Movement: No Impairment (WFL) Laryngeal Elevation: No Impairment (WFL) Vallecular Residue: Swallow to Clear Pharyngeal Wall Residue: No Impairment (WFL) Piriform Sinus Residue: Swallow to Clear Laryngeal Penetration: None Aspiration Observations: None Other Pharyngeal Observations: Did not demonstrate s/s aspiration. No coughing or choking observed. Esophageal Phase Peristalsis: WFL A/P Esophageal Propulsion Time: Less Than 5 Seconds Normal Performed-A/P View Not Applicable/Performed Summary/Impressions Oral Phase Impression: Moderate Impairment Pt demonstrated effortful mastication with mechanical soft solids. Pt requires additional time to chew mechanical soft solids that are small and bite-sized. Pt safely cleared solid during study, but fatigue may impact swallowing safety and mastication. Speech-Plan Patient/Family Goals Patient/Family Goals: Return to SNF Treatment Plan Speech Therapy Treatment Plan: Discontinue ST Pt seen for MBSS. Pt tolerated thin liquids, puree, and mechanical soft solids. If solids are bite-sized and soft textured, pt may require additional time for chewing and safe swallowing. No s/s aspiration. Pt educated on safe swallow precautions including multiple swallows and thin liquid following solids. Treatment Duration: Apr 13, 2021 Frequency: 1 time per week Estimated Hrs Per Day: Other Rehab Potential: Good Barriers to Learning: alertness Pt/Family Agrees to Plan: Yes Safety Risks/Education Teaching Recipient: Patient, Health Care Proxy Teaching Methods: Discussion Response to Teaching: Verbalize Understanding Education Topics Provided: safe swallow precautions and results of MBSS Time Speech Therapy Time In: 10:30 Speech Therapy Time Out: 11:00 Total Billed Time: 30 Billed Treatment Time 1, MOD No MAXI WHITAKER Apr 13, 2021 11:13
--- NOTE | 2021-04-13 11:48 | Diagnostic Imaging Report ---
INDICATION: Dysphagia. Procedure was performed in conjunction with speech pathology. Video fluoroscopy was performed during swallowing of barium of multiple consistencies. Patient ingested thin barium as well as applesauce and banana consistency. A total of 2 minutes 11 seconds fluoroscopic time was utilized. Oral phase grossly unremarkable. There is normal epiglottic tilt and laryngeal elevation. There was mild early spillover noted during the swallowing of thin barium. No laryngeal penetration or aspiration was observed with any consistency. IMPRESSION: Essentially unremarkable modified barium swallow. No penetration or aspiration was observed. Dictated by: Dictated on workstation # [id number]
== END ==
LOC: RAD 10:30
PROVIDERS: ATTEND Family Medicine
DX: R13.12 Dysphagia, oropharyngeal phase (principal); I69.891 Dysphagia following other cerebrovascular disease
CPT/HCPCS: 74230

== ENCOUNTER → 2021-04-30 | Outpatient (CLI) | payer MEDICARE, MEDICAID | LOC: WOUNDCARE 08:44 | PROVIDERS: ATTEND Surgery | DX: L89.612 Pressure ulcer of right heel, stage 2 (principal); E11.621 Type 2 diabetes mellitus with foot ulcer; L97.511 Non-pressure chronic ulcer of other part of right foot limited to breakdown of skin; L97.121 Non-pressure chronic ulcer of left thigh limited to breakdown of skin; L22 Diaper dermatitis; B35.6 Tinea cruris; I70.244 Atherosclerosis of native arteries of left leg with ulceration of heel and midfoot; T65.222A Toxic effect of tobacco cigarettes, intentional self-harm, initial encounter; F17.218 Nicotine dependence, cigarettes, with other nicotine-induced disorders; E66.01 Morbid (severe) obesity due to excess calories; R54 Age-related physical debility | CPT/HCPCS: 99215 ==

== ENCOUNTER → 2021-05-07 | Outpatient (CLI) | payer MEDICARE, MEDICAID ==
[~2021-05-07] MED LIST changes: +SCOP1PAT10 TD; -SCOP1PAT11 TD
== END ==
LOC: WOUNDCARE 10:16
PROVIDERS: ATTEND Surgery
DX: I70.244 Atherosclerosis of native arteries of left leg with ulceration of heel and midfoot (principal); I96 Gangrene, not elsewhere classified; L89.612 Pressure ulcer of right heel, stage 2; E11.621 Type 2 diabetes mellitus with foot ulcer; L97.511 Non-pressure chronic ulcer of other part of right foot limited to breakdown of skin; T65.222A Toxic effect of tobacco cigarettes, intentional self-harm, initial encounter; E66.01 Morbid (severe) obesity due to excess calories; F17.218 Nicotine dependence, cigarettes, with other nicotine-induced disorders; R54 Age-related physical debility
CPT/HCPCS: 99213

== ENCOUNTER → 2021-05-07 | Outpatient (CLI) | payer MEDICARE, MEDICAID ==
--- NOTE | 2021-05-07 17:39 | Diagnostic Imaging Report ---
EXAM: Peripheral vascular disease COMPARISON: None. FINDINGS: Ankle brachial indices were obtained from the posterior tibial arteries bilaterally. The right SHERI 0.72, the left SHERI 0.53. IMPRESSION: Abnormal ABIs. Dictated by: Dictated on workstation # [id number]
== END ==
LOC: RAD 09:00
PROVIDERS: ATTEND Surgery
DX: I70.244 Atherosclerosis of native arteries of left leg with ulceration of heel and midfoot (principal)
CPT/HCPCS: 93923

== ENCOUNTER → 2021-05-14 | Outpatient (CLI) | payer MEDICARE, MEDICAID | LOC: WOUNDCARE 10:20 | PROVIDERS: ATTEND Surgery | DX: I70.244 Atherosclerosis of native arteries of left leg with ulceration of heel and midfoot (principal); L89.613 Pressure ulcer of right heel, stage 3; E11.621 Type 2 diabetes mellitus with foot ulcer; T65.222A Toxic effect of tobacco cigarettes, intentional self-harm, initial encounter; E66.01 Morbid (severe) obesity due to excess calories; E11.52 Type 2 diabetes mellitus with diabetic peripheral angiopathy with gangrene; R54 Age-related physical debility; F17.218 Nicotine dependence, cigarettes, with other nicotine-induced disorders | CPT/HCPCS: 99212 ==

== ENCOUNTER → 2021-05-23 | Outpatient (CLI) | payer MEDICARE, MEDICAID | LOC: WOUNDCARE 10:48 | PROVIDERS: ATTEND Family Medicine | DX: E11.621 Type 2 diabetes mellitus with foot ulcer (principal); E11.52 Type 2 diabetes mellitus with diabetic peripheral angiopathy with gangrene; I70.262 Atherosclerosis of native arteries of extremities with gangrene, left leg; L89.613 Pressure ulcer of right heel, stage 3; F17.218 Nicotine dependence, cigarettes, with other nicotine-induced disorders; T65.222A Toxic effect of tobacco cigarettes, intentional self-harm, initial encounter; E66.01 Morbid (severe) obesity due to excess calories; R54 Age-related physical debility; Z68.32 Body mass index [BMI] 32.0-32.9, adult | CPT/HCPCS: 99213 ==

== ENCOUNTER → 2021-05-31 | Outpatient (CLI) | payer MEDICARE, MEDICAID ==
[~2021-05-31] MED LIST changes: -MAGN400T8 PO; +MGX400T PO
== END ==
LOC: WOUNDCARE 11:17
PROVIDERS: ATTEND Family Medicine
DX: I70.244 Atherosclerosis of native arteries of left leg with ulceration of heel and midfoot (principal); L89.613 Pressure ulcer of right heel, stage 3; E11.621 Type 2 diabetes mellitus with foot ulcer; T65.222A Toxic effect of tobacco cigarettes, intentional self-harm, initial encounter; E66.01 Morbid (severe) obesity due to excess calories; E11.52 Type 2 diabetes mellitus with diabetic peripheral angiopathy with gangrene; R54 Age-related physical debility; F17.218 Nicotine dependence, cigarettes, with other nicotine-induced disorders
CPT/HCPCS: 99212

== ENCOUNTER → 2021-06-06 | Outpatient (CLI) | payer MEDICARE, MEDICAID | LOC: WOUNDCARE 10:02 | PROVIDERS: ATTEND Family Medicine | DX: E11.52 Type 2 diabetes mellitus with diabetic peripheral angiopathy with gangrene (principal); E11.621 Type 2 diabetes mellitus with foot ulcer; I70.262 Atherosclerosis of native arteries of extremities with gangrene, left leg; T65.222A Toxic effect of tobacco cigarettes, intentional self-harm, initial encounter; E66.01 Morbid (severe) obesity due to excess calories; L89.620 Pressure ulcer of left heel, unstageable; L97.522 Non-pressure chronic ulcer of other part of left foot with fat layer exposed; F17.218 Nicotine dependence, cigarettes, with other nicotine-induced disorders; R54 Age-related physical debility; Z68.32 Body mass index [BMI] 32.0-32.9, adult | CPT/HCPCS: 99213 ==

== ENCOUNTER → 2021-06-22 | Outpatient (CLI) | payer MEDICARE, MEDICAID | LOC: WOUNDCARE 10:22 | PROVIDERS: ATTEND Family Medicine | DX: I70.244 Atherosclerosis of native arteries of left leg with ulceration of heel and midfoot (principal); E11.621 Type 2 diabetes mellitus with foot ulcer; E11.52 Type 2 diabetes mellitus with diabetic peripheral angiopathy with gangrene; T65.222A Toxic effect of tobacco cigarettes, intentional self-harm, initial encounter; F17.218 Nicotine dependence, cigarettes, with other nicotine-induced disorders; E66.01 Morbid (severe) obesity due to excess calories; L89.620 Pressure ulcer of left heel, unstageable; R54 Age-related physical debility; Z68.32 Body mass index [BMI] 32.0-32.9, adult | CPT/HCPCS: 99213 ==

== ENCOUNTER → 2021-07-06 | Outpatient (CLI) | payer MEDICARE, MEDICAID ==
[~2021-07-06] MED LIST changes: -GUAI100L36 PO; +GUAI100L56 PO; +POTA-160 PO; -POTA10TA6 PO
== END ==
LOC: WOUNDCARE 10:56
PROVIDERS: ATTEND Family Medicine
DX: I70.244 Atherosclerosis of native arteries of left leg with ulceration of heel and midfoot (principal); E11.621 Type 2 diabetes mellitus with foot ulcer; E11.52 Type 2 diabetes mellitus with diabetic peripheral angiopathy with gangrene; T65.222A Toxic effect of tobacco cigarettes, intentional self-harm, initial encounter; E66.01 Morbid (severe) obesity due to excess calories; L89.620 Pressure ulcer of left heel, unstageable; L89.610 Pressure ulcer of right heel, unstageable; I70.234 Atherosclerosis of native arteries of right leg with ulceration of heel and midfoot; L89.890 Pressure ulcer of other site, unstageable; L89.153 Pressure ulcer of sacral region, stage 3; F17.218 Nicotine dependence, cigarettes, with other nicotine-induced disorders; R54 Age-related physical debility; Z68.32 Body mass index [BMI] 32.0-32.9, adult
CPT/HCPCS: A6197; A6212; G0463; 99213

== ENCOUNTER → 2021-07-20 | Outpatient (CLI) | payer MEDICARE, MEDICAID | LOC: WOUNDCARE 10:34 | PROVIDERS: ATTEND Family Medicine | DX: I70.244 Atherosclerosis of native arteries of left leg with ulceration of heel and midfoot (principal); E11.621 Type 2 diabetes mellitus with foot ulcer; E11.52 Type 2 diabetes mellitus with diabetic peripheral angiopathy with gangrene; T65.222A Toxic effect of tobacco cigarettes, intentional self-harm, initial encounter; E66.01 Morbid (severe) obesity due to excess calories; L89.610 Pressure ulcer of right heel, unstageable; I70.234 Atherosclerosis of native arteries of right leg with ulceration of heel and midfoot; L89.890 Pressure ulcer of other site, unstageable; L89.153 Pressure ulcer of sacral region, stage 3; L89.624 Pressure ulcer of left heel, stage 4; R54 Age-related physical debility; F17.218 Nicotine dependence, cigarettes, with other nicotine-induced disorders; Z68.32 Body mass index [BMI] 32.0-32.9, adult | CPT/HCPCS: 97597; A6212; G0463 ==

== ENCOUNTER → 2021-08-01 | Outpatient (CLI) | payer MEDICARE, MEDICAID | LOC: WOUNDCARE 09:24 | PROVIDERS: ATTEND Family Medicine | DX: I70.244 Atherosclerosis of native arteries of left leg with ulceration of heel and midfoot (principal); E11.621 Type 2 diabetes mellitus with foot ulcer; E11.52 Type 2 diabetes mellitus with diabetic peripheral angiopathy with gangrene; E66.01 Morbid (severe) obesity due to excess calories; L89.610 Pressure ulcer of right heel, unstageable; I70.234 Atherosclerosis of native arteries of right leg with ulceration of heel and midfoot; L89.890 Pressure ulcer of other site, unstageable; L89.153 Pressure ulcer of sacral region, stage 3; L89.624 Pressure ulcer of left heel, stage 4; R54 Age-related physical debility; T65.222A Toxic effect of tobacco cigarettes, intentional self-harm, initial encounter; F17.218 Nicotine dependence, cigarettes, with other nicotine-induced disorders; Z68.32 Body mass index [BMI] 32.0-32.9, adult | CPT/HCPCS: 11042; A6197; A6212; G0463 ==